=== PATIENT | female | born 1945 | race Caucasian/White ===

== ENCOUNTER 2024-12-02 08:54 | Outpatient (REF) | payer MEDICARE, SELFPAY ==
--- OUTSIDE RECORDS SUMMARY | 2024-08-18 10:00 | XMS_ITS ---
Author Organization Talita Mills MD Address [address] [place] [phone] Care Team Providers Care Health Education Aide Name Role Phone Allyson Fairchild Primary Care Provider REASON FOR VISIT Rehab f/u D/C 08/08/2024 Encounters Encounter Location Date Provider Diagnosis Talita Mills MD [address] [phone] 08/18/2024 Allyson Fairchild Plan Of Treatment Next Appt Details Provider Name:Allyson Fairchild , 01/19/2025 01:30:00 PM, [address] [place] [address], [phone], Provider Name:Allyson Fairchild , 10/19/2025 01:30:00 PM, [address] [place] [address], [phone], Progress Notes * Fatou BRUSHOB:1945 (79 yo F)Acc No.[id number]:08/18/2024 Progress Note Patient: Lorene BYRNE Appointment Provider: Janneth Fairchild DNP :1945 A ge:79 Y S ex:Female Date:08/18/2024 Address:[address] [place] [address] Subjective: * Chief Complaints: * 1 . Rehab f/u D/C 08/08/2024. * Medical History: Objective: * Vitals: Past Vitals:* 08/11/2024 Temp:97.7F, HR:91/min, BP:11 8/68mm Hg, Wt:164lbs, BMI:26.07Index, Ht:66.5in, Oxygen sat %:96% * 05/19/2024 Temp:96.5F, HR:65/min, BP:11 8/68mm Hg, Wt:160lbs, BMI:25.44Index, Ht:66.5in, Oxygen sat %:95% * 04/28/2024 Temp:967F, HR:117/min, BP:10 6/58mm Hg, Wt:156lbs, BMI:24.8Index, Ht:66.5in, Oxygen sat %:98% Assessment: Plan: * Treatment: * Images: Billing Information: * Visit Code: * Procedure Codes: * Electronic signature of Anibal Fairchild DNP on 12/03/2024 at 09:51 AM EDT Sign off status: Pending * Appointment Provider: Janneth Fairchild DNP Date: 0 08/18/2024 Generated for Dinora flores/Ian/Sena on: 09:51 AM EDT
--- NOTE | ~2024-12-02 | XR_ITS ---
Exam: X-ray, bilateral knees.XR KNEE 3 VIEWS BILATERAL TECHNIQUE: Three views lower extremity joint, bilateral knees INDICATION: Bilateral knee pain COMPARISON: None available. FINDINGS: RIGHT KNEE: There is severe narrowing of the medial compartment and mild narrowing of the lateral compartment. There are tricompartmental marginal osteophytes, largest along the medial joint line and medial trochlea. There is diffuse osteopenia. There is no joint effusion. LEFT KNEE: There is moderate narrowing of medial compartment and subchondral sclerosis. There are tricompartmental marginal osteophytes, largest along the medial joint line, trochlea, and medial patella. There is no joint effusion. There is diffuse osteopenia. XR/XR Knee Sudarshan 3V IMPRESSION: Osteopenia. Right knee: Severe osteoarthritis. Left knee: Moderate osteoarthritis. Electronically signed by: Ty Melgar MD 12/02/2024 01:18 PM EDT
--- OUTSIDE RECORDS SUMMARY | 2024-12-03 09:51 | XMS_ITS | Clinical Summary ---
Author Organization [facility] Address [address] [place] [address] Phone Care Team Providers Care Posting Clerk Name Role Phone Allyson Fairchild NP Primary Care Provider [phone] Allergies Active Allergy Reactions Criticality Noted Date Comments Ciprofloxacin Diarrhea 02/19/2024 Medications Vitamin D3 50 mcg (2,000 unit) tablet Take 1 tablet (2,000 Units total) by mouth 1 (one) time each day. for 90 days 05/16/2023 Active DULoxetine (CYMBALTA) [address] capsuleIndicati ons:anxiety with depression Take 1 capsule (30 mg total) by mouth at bedtime. Do not crush or chew. Active gabapentin (NEURONTIN) 300 mg capsule Take 1 capsule (300 mg total) by mouth at bedtime. 06/18/2024 Active metoprolol succinate (TOPROL-XL) 25 mg 24 hr tablet Take 1 tablet (25 mg total) by mouth 1 (one) time each day. Do not crush or chew. 0 06/19/2024 Active doxycycline hyclate (VIBRA-TABS) 100 mg tablet Take 1 tablet (100 mg total) by mouth 2 (two) times a day. Take with a full glass of water and do not lie down for at least 30 minutes after. 60 each 11 2024 Active methocarbamoL (ROBAXIN) 500 mg tablet Take 1 tablet (500 mg total) by mouth every 8 (eight) hours if needed for muscle spasms. 30 tablet 08/22/2024 Active LORazepam (ATIVAN) 0.5 mg tablet Take 1 tablet (0.5 mg total) by mouth every 6 (six) hours if needed for anxiety. Max Daily Amount: 2 mg Active acetaminophen (TYLENOL) 325 mg tablet Take by mouth every 6 (six) hours if needed for mild pain. Active ondansetron (ZOFRAN) 4 mg tablet Take 1 tablet (4 mg total) by mouth every 8 (eight) hours if needed for nausea or vomiting. 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, [facility] V28) Encounters Date Type Department Care Team Description 10/20/2024 Telephone Gastroenterology - [address] [facility] [address] [facility] [address] [place] [phone] Kathrine Cedeño MD 10/17/2024 Telephone Assistant Store Manager Operations - [place] [address] [place] [phone] Esthela Baum MA 09/15/2024 10:30 AM EDT Office Visit Neurosurgery - [place] [address] [place] [phone] Lonnie Freed MD History of thoracic surgery (Primary Dx) 09/12/2024 Telephone [facility] - [facility] [address] [facility] [address] [place] [phone] Allyson Fairchild NP 09/09/2024 12:44 PM EDT - 09/09/2024 11:59 PM EDT Hospital Encounter [facility] CT Scan [address] [place] [phone] Discitis thoracic region Discharge Disposition: Home or Self Care 09/09/2024 12:44 PM EDT - 09/09/2024 11:59 PM EDT Hospital Encounter [facility] CT Scan [address] [place] [phone] Other pulmonary embolism without acute cor pulmonale ([facility] V24, [facility] V28) Discharge Disposition: Home or Self Care from Last 3 Months Immunizations Immunization Administration Dates Next Due Influenza Quadravalent, 0.5ml (Fluad) 65yo and o lder 12/06/2021 Influenza Quadrivalent, with preservative (Fluzone; Afluria) 6mo and older 12/09/2020 Influenza trivalent, with pr eservative (Fluzone; Afluria) 6mo and older 11/20/2023 Pneumococcal conjugate 20 va lent (Prevnar 20, PCV 20) 2mo and older 06/18/2023 Tdap Tetanus diptheria acell ular pertussis (Boostrix; Adacel) 7yo and older 05/08/2016 Surgical History Surgery Date Site/Laterality Comments WRIST FRACTURE SURGERY 02/05/2019 - 02/05/2020 Right ORIF ANKLE FRACTURE 02/05/2014 - 02/04/2015 Right Medical History Medical History Date Comments Hypertension Anxiety Alcohol abuse Arthritis Family History Medical History Relation Name Comments Alcohol abuse Father Alcohol abuse Mother Relation Name Status Comments Father Mother Social History Tobacco Use Types Packs/Day Years Used Date Smoking Tobacco: Never Smokeless Tobacco: Never Tobacco Cessation:Counseling Given: Not Answered Alcohol Use Standard Drinks/Week Comments Not Currently 0 (1 standard drink = 0.6 oz pure alcohol) 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 relapsed quir 19 days ago Interpersonal Safety Answer Date Record ed Physical Abuse Unrecognized value 06/28/2024 Verbal Abuse Unrecognized value 06/28/2024 Comments Unknown Sex and Gender Information Value Date Recorded Sex Assigned at Female 02/18/2024 8:28 PM EST Legal Sex Female 1:55 PM EST Gender Identity Female 02/18/2024 8:28 PM EST Sexual Orientation Straight 02/18/2024 8: 28 PM EST Obstetrics History Last Filed Vital Signs Vital Sign Reading Time Taken Comments Blood Pressure 117/77 09/15/2024 10:06 AM EDT Pulse 92 09/15/2024 10:06 AM EDT Temperature 36.7 C (98 F) 09/15/2024 10:06 AM EDT Respiratory Rate 18 2024 10:13 AM EDT Oxygen Saturation 97% 2024 10:13 AM EDT Inhaled Oxygen Concentration - - Weight 66.2 kg (146 lb) 09/15/2024 10:06 AM EDT Height 170.2 cm (5' 7 ) 09/15/2024 10:06 AM EDT Body Mass Index 22.87 09/15/2024 10:06 AM EDT Plan of Treatment Upcoming Encounters Date Type Department Care Team (Late st Contact Info) Description 12/03/2024 12:[address] [facility] [address] [place] [phone] 12/12/2024 12:30 PM EST Office Visit [facility] Cardiology - [place] [address] [place] [phone] Rodríguez Meza MD [address] [place], [place] [phone] 02/18/2025 10:00 AM EST Office Visit Infectious Disease - [place] [address] [place] [phone] Daria Woodall MD [address] [place], [place] [id number] Health Maintenance Due Date Last Done Comments Hepatitis A Vaccines (1 of 2 - Risk 2-dose series) 08/11/1966 Zoster Vaccines (1 of 2) 08/11/1997 Hepatitis B Vaccines (1 of 3 - Risk 3-dose series) 2007 RSV Immunization Adult Patients (1 - 1-dose 75+ series) 08/11/2022 Depression Screening 02/06/2024 Cholesterol Screening (Lipid Panel) 02/19/2024 Medicare Annual Wellness Visit 02/19/2024 Osteoporosis Screening (Bone Density Screening) 02/19/2024 Social Influencers of Health Screening 02/19/2024 COVID-19 Vaccine (4 - 2024-2 6 season) 2024 05/03/2021, 09/24/2020, 08/27/2020 Influenza Vaccine (#1) 2024 , 12/06/2021, 12/09/2020 Falls Risk Assessment 07/02/2025 07/02/2024 DTaP,Tdap,and Td Vaccines (2 - Td or Tdap) 05/08/2026 05/08/2016 Pneumococcal Vaccine: 50+ Years Completed 06/18/2023 Hepatitis C Screening Completed 02/19/2024 HIB Vaccines Aged Out No longer eligi ble based on patient's age to complete this topic HPV Vaccines Aged Out No longer eligi ble based on patient's age to complete this topic IPV Vaccines Aged Out No longer eligi ble based on patient's age to complete this topic MMR Vaccines Aged Out No longer eligi ble based on patient's age to complete this topic Meningococcal ACWY Vaccine Aged Out N o longer eligible based on patient's age to complete this topic Meningococcal B Vaccine Aged Out No l onger eligible based on patient's age to complete this topic RSV Immunization Patients Under 20 months Aged Out No longer eligible b ased on patient's age to complete this topic Varicella Vaccines Aged Out No longer eligible based on patient's age to complete this topic Medical Devices Implanted Type Area Detailer Device Identifier Shelf Expiration Date Model / Serial / Lot Kit Surgiflo W 2000 Units Ster Lyo - S- - [id number] Implanted:Qty : 1 on 06/27/2024 by Lonnie Freed MD at [facility] Hemostasis N/A: Spine Thoracic [employer] 11/04/2025 [id number] / - / [id number] Procedures Procedure Name Priority Date/Time Associated Diagnosis Comments CT THORACIC SPINE WO CONTRAST Routine 09/09/2024 2:03 PM EDT Discitis thoracic region CT ANGIO CHEST WO AND/OR W CONTRAST Routine 09/09/2024 1:59 PM EDT Other pulmonary embolism without acute cor pulmonale (CMS/HCC V24, CMS/HCC V28) POCT CREATININE BLOOD Routine 09/09/2024 1:46 PM EDT HEPATITIS PANEL, ACUTE WITH REFLEX TO CONFIRMATION Routine 02/19/2024 7:33 PM EST from Last 3 Months or Most Recently Relevant to Health Maintenance Results * CT Thoracic Spine wo Contrast (09/09/2024 2:03 PM EDT) Anatomical Region Laterality Modality Spine, T-spine Computed Tomogra phy 09/09/2024 5:19 PM EDT Impressions 09/09/2024 5:29 PM EDT Endplate sclerosis and partial ankylosis across the disc spaces at T8-T9 and T11-T12 compatible with healing spondylitis/discitis. No signs of new spinal infection. Kyphosis scoliosis and chronic spondylosis. Report reviewed and signed by : Dr. Ranjan Mauro MD on 09/09/2024 5:29 PM. Workstation Name - [id number] -------- FINAL REPORT -------- Dictated By: Ranjan Mauro Dictated Date: 09/09/2024 17:19 ET Assigned Physician: Ranjan Mauro Reviewed and Electronically Signed By: Ranjan Mauro Signed Date: 09/09/2024 17:29 ET Workstation ID: [id number] Transcribed By: Self Edit Transcribed Date: 09/09/2024 17:19 ET Narrative 09/09/2024 5:29 PM EDT EXAM: CT THORACIC SPINE WO CONTRAST CLINICAL INDICATION: s/p T11-T12 discectomy with left retropleural approach COMPARISON: CT 06/25/2024 TECHNIQUE: Helical multichannel CT imaging of the thoracic spine was performed without contrast. Sagittal and coronal plane reconstructions were obtained.. All CT scans are performed using dose optimization technique as appropriate to a performed exam including the following: Automated Exposure control and adjustment of the mA and/or kV according to patient size. FINDINGS: GENERAL OBSERVATIONS: LORDOSIS/KYPHOSIS: Kyphoscoliosis is unchanged. ALIGNMENT: Normal. No evidence of spondylolisthesis. SPINAL CANAL: Normal ANATOMY: Normal VERTEBRAL OBSERVATIONS: POSTERIOR NEURAL ARCH INTEGRITY: Intact VERTEBRAL HEIGHT: Unchanged chronic appearing mild compression deformities at T8, T9, T11, and T12. ENDPLATE DEFINITION: There is sclerosis and partial ankylosis across the disc space at T8-T9 compatible with old healed spondylitis/discitis. At T11-T12 there is less lucency of the endplates with areas of sclerosis and now partial ankylosis across the disc space compatible with healing spondylitis/discitis. No new areas of endplate irregularity to suggest spondylitis/discitis elsewhere in the thoracic spine. Chronic appearing remodeling of the endplates at L1-L2 is felt to be degenerative. INTERSPACE OBSERVATIONS: Redemonstration of degenerative changes with loss of disc space height and endplate osteophyte formation accompanied by mild facet arthrosis. The facet arthrosis and hypertrophic changes with loss of disc space height results in [id number] foraminal narrowing at T8-T9, worse on the right that is unchanged. Small chronic peripherally calcified disc protrusion at T5-T6 is unchanged. No significant central stenosis. No evidence of epidural disease with within the limitations of this study. Procedure Note Ranjan Mauro MD - 09/09/2024 EXAM: CT THORACIC SPINE WO CONTRAST CLINICAL INDICATION: s/p T11-T12 discectomy with left retropleuralapproach COMPARISON: CT 06/25/2024 TECHNIQUE: Helical multichannel CT imaging of the thoracic spine wasperformed without contrast. Sagittal and coronal plane reconstructionswere obtained.. All CT scans are performed using dose optimizationtechnique as appropriate to a performed exam including the following:Automated Exposure control and adjustment of the mA and/or kV according topatient size. FINDINGS: GENERAL OBSERVATIONS: LORDOSIS/KYPHOSIS: Kyphoscoliosis is unchanged. ALIGNMENT: Normal. No evidence of spondylolisthesis. SPINAL CANAL: Normal ANATOMY: Normal VERTEBRAL OBSERVATIONS: POSTERIOR NEURAL ARCH INTEGRITY: Intact VERTEBRAL HEIGHT: Unchanged chronic appearing mild compression deformitiesat T8, T9, T11, and T12. ENDPLATE DEFINITION: There is sclerosis and partial ankylosis across thedisc space at T8-T9 compatible with old healed spondylitis/discitis. [id number] there is less lucency of the endplates with areas of sclerosis andnow partial ankylosis across the disc space compatible with healingspondylitis/discitis. No new areas of endplate irregularity to suggestspondylitis/discitis elsewhere in the thoracic spine. Chronic appearingremodeling of the endplates at L1-L2 is felt to be degenerative. INTERSPACE OBSERVATIONS: Redemonstration of degenerative changes with lossof disc space height and endplate osteophyte formation accompanied by mildfacet arthrosis. The facet arthrosis and hypertrophic changes with lossof disc space height results in [id number]-afswnxbq foraminal narrowing atT8-T9, worse on the right that is unchanged. Small chronic peripherallycalcified disc protrusion at T5-T6 is unchanged. No significant centralstenosis. No evidence of epidural disease with within the limitations ofthis study. IMPRESSION: Endplate sclerosis and partial ankylosis across the disc spaces at T8-T9and T11- T12 compatible with healing spondylitis/discitis. No signs of new spinal infection. Kyphosis scoliosis and chronic spondylosis. Report reviewed and signed by : Dr. Ranjan Mauro MD on 09/09/2024 5:29 PM.Workstation Name - [id number] -------- FINAL REPORT -------- Dictated By: Ranjan Mauro Dictated Date: 09/09/2024 17:19 ET Assigned Physician: Ranjan Mauro Reviewed and Electronically Signed By: Ranjan Mauro Signed Date: 09/09/2024 17:29 ET Workstation ID: [id number] Transcribed By: Self Edit Transcribed Date: 09/09/2024 17:19 ET us Teagan Howe NP IMG CT PROCEDURES Final Resu lt * CT Angio Chest wo and/or w Contrast (09/09/2024 1:59 PM EDT) Anatomical Region Laterality Modality Body Computed Tomogra phy 09/09/2024 2:12 PM EDT Impressions 09/09/2024 2:28 PM EDT * No evidence of pulmonary embolism. * Bronchial marin are thickened, particularly in the lower lobes, and this could be a manifestation of reactive airway disease, asthma or bronchitis. No pneumonia. * Incidentally noted is a hyperdense proteinaceous cyst of the left kidney. * The findings suggest that there has been successful treatment of spinal infection. No new spinal abnormalities. Report reviewed and signed by : Dr. Rakesh Ruiz on 09/09/2024 2:28 PM. Workstation Name - [id number] -------- FINAL REPORT -------- Dictated By: Rakesh Ruiz Dictated Date: 09/09/2024 14:12 ET Assigned Physician: Rakesh Ruiz Reviewed and Electronically Signed By: Rakesh Ruiz Signed Date: 09/09/2024 14:28 ET Workstation ID: [id number] Transcribed By: Self Edit Transcribed Date: 09/09/2024 14:12 ET Narrative 09/09/2024 2:28 PM EDT EXAM: CT ANGIO CHEST WO AND/OR W CONTRAST CLINICAL INFORMATION: other pulmonary embolism without acute pulmonale COMPARISON: CXR from 06/29/2024. CT images of the thoracic spine from 06/25/2024. TECHNIQUE: Multidetector volumetric imaging was performed from the thoracic inlet to below the diaphragms following the administration of 65 mL Isovue-370 intravenous contrast. No contrast reaction reported. Sagittal and coronal reformatted and MIP images were obtained on the CT workstation, uploaded to PACS, and reviewed. CT examination is performed using dose optimization techniques as appropriate, variously including the following: *Automated exposure control *Adjustment of mA and/or kV according to patient size (this includes techniques or standardized protocols for targeted exams where dose is matched to indication/reason for exam; i.e. extremities or head) *Use of iterative reconstruction technique FINDINGS: LUNGS AND PLEURA: Bronchial marin are thickened, particularly in lower lobes. No pulmonary consolidation, pleural effusion or pneumothorax. Mild atelectasis of lower lobes. QUALITY OF STUDY/CONTRAST BOLUS: Satisfactory. PULMONARY ARTERIES: Pulmonary arteries are normal in size. No evidence of embolic filling defects in the main, lobar or segmental vessels. CARDIOVASCULAR/AORTA: The heart size is normal. No pericardial effusion. Mild coronary artery atherosclerotic calcification. There is scattered calcific atherosclerosis of the thoracic aorta without aneurysm or dissection. MEDIASTINUM/LOWER NECK: No mass in the visualized lower neck or mediastinum. The esophagus has normal wall thickness. LYMPHATICS: No pathologic-sized mediastinal, hilar or axillary lymph nodes. UPPER ABDOMEN: No acute findings. There are diverticula of the partially visualized colon. 1.5 cm cortical lesion of the anterior left kidney has density of 75 Hounsfield units. It was partially included in [id number] and had similar density on noncontrast images from 06/25/2024 consistent with a proteinaceous cyst. OSSEOUS STRUCTURES: Bones are diffusely osteopenic. Multilevel degenerative arthropathy of the spine. Chronic collapse of vertebral endplates and partial interbody fusion at T8-T9. This has the appearance of old treated discitis-osteomyelitis. Also, there is an old erosive changes with reactive sclerosis at endplates of T11-T12. There are no rim-enhancing paraspinal fluid collections. Procedure Note Rakesh Ruiz MD - 09/09/2024 EXAM: CT ANGIO CHEST WO AND/OR W CONTRAST CLINICAL INFORMATION: other pulmonary embolism without acute pulmonale COMPARISON: CXR from 06/29/2024. CT images of the thoracic spine from 06/25/2024. TECHNIQUE: Multidetector volumetric imaging was performed from the thoracic inlet tobelow the diaphragms following the administration of 65 mL Isovue-370intravenous contrast. No contrast reaction reported. Sagittal and coronalreformatted and MIP images were obtained on the CT workstation, uploadedto PACS, and reviewed. CT examination is performed using doseoptimization techniques as appropriate, variously including thefollowing: *Automated exposure control *Adjustment of mA and/or kV according to patient size (this includestechniques or standardized protocols for targeted exams where dose ismatched to indication/reason for exam; i.e. extremities or head) *Use of iterative reconstruction technique FINDINGS: LUNGS AND PLEURA: Bronchial marin are thickened, particularly in lowerlobes. No pulmonary consolidation, pleural effusion or pneumothorax.Mild atelectasis of lower lobes. QUALITY OF STUDY/CONTRAST BOLUS: Satisfactory. PULMONARY ARTERIES: Pulmonary arteries are normal in size. No evidence ofembolic filling defects in the main, lobar or segmental vessels. CARDIOVASCULAR/AORTA: The heart size is normal. No pericardial effusion.Mild coronary artery atherosclerotic calcification. There is scatteredcalcific atherosclerosis of the thoracic aorta without aneurysm ordissection. MEDIASTINUM/LOWER NECK: No mass in the visualized lower neck ormediastinum. The esophagus has normal wall thickness. LYMPHATICS: No pathologic-sized mediastinal, hilar or axillary lymphnodes. UPPER ABDOMEN: No acute findings. There are diverticula of the partiallyvisualized colon. 1.5 cm cortical lesion of the anterior left kidney hasdensity of 75 Hounsfield units. It was partially included [id number] and had similar density on noncontrast images from06/25/2024 consistent with a proteinaceous cyst. OSSEOUS STRUCTURES: Bones are diffusely osteopenic. Multileveldegenerative arthropathy of the spine. Chronic collapse of vertebralendplates and partial interbody fusion at T8-T9. This has the appearanceof old treated discitis-osteomyelitis. Also, there is an old erosivechanges with reactive sclerosis at endplates of T11-T12. There are norim-enhancing paraspinal fluid collections. IMPRESSION: * No evidence of pulmonary embolism. * Bronchial marin are thickened, particularly in the lower lobes, andthis could be a manifestation of reactive airway disease, asthma orbronchitis. No pneumonia. * Incidentally noted is a hyperdense proteinaceous cyst of the leftkidney. * The findings suggest that there has been successful treatment of spinalinfection. No new spinal abnormalities. Report reviewed and signed by : Dr. Rakesh Ruiz on 09/09/2024 2:28 PM.Workstation Name - [id number] -------- FINAL REPORT -------- Dictated By: Rakesh Ruiz Dictated Date: 09/09/2024 14:12 ET Assigned Physician: Rakesh Ruiz Reviewed and Electronically Signed By: Rakesh Ruiz Signed Date: 09/09/2024 14:28 ET Workstation ID: [id number] Transcribed By: Self Edit Transcribed Date: 09/09/2024 14:12 ET Allyson Fairchild NP IMG CT PROCEDURES Final Result * POCT Creatinine, blood (09/09/2024 1:46 PM EDT) Creatinine POCT 1.0 0.5 - 1.0 mg/dL 09/09/2024 1:54 PM EDT [facility] eGFR 54 mL/min/1.7 3m2 09/09/2024 1:54 PM EDT [facility] Blood Venous blood specimen / Unknown 09/09/2024 1:46 PM EDT 09/09/2024 1:55 PM EDT us Generic Provider Poct LAB POINT OF CARE TEST DOCKED DEVICE UNSOLICITED RESULTS Final Result [facility] [address] [place] [address], [place] [phone] * Hepatitis panel, acute with reflex to confirmation (02/19/2024 7:33 PM EST) Hepatitis B Surface Ag Negative Negative LAB CHEMISTRY METHOD 02/19/2024 9:04 PM EST [facility] Hepatitis A Antibody IgM Negative Negative LAB CHEMISTRY METHOD 02/19/2024 9:04 PM EST [facility] Hep B Core IgM Negative Negative LAB CHEMISTRY METHOD 02/19/2024 9:04 PM EST [facility] Hepatitis C Antibody Negative Negative LAB CHEMISTRY METHOD 02/19/2024 9:04 PM EST [facility] Blood Venous blood specimen / Unknown Venipuncture / Unknown 02/19/2024 7:33 PM EST 02/19/2024 7:46 PM EST Denise SMITH LAB BLOOD ORDERABLES Final Re sult [facility] [address] [place] [address], [place] [phone] from Last 3 Months or Most Recently Relevant to Health Maintenance Insurance MEDICARE [facility] MEDICARE Advance Directives Documents on File Type Date Recorded Patient Utility Agent Expl anation Power of Forensic Nurse 02/26/2024 7:59 AM Power of Forensic Nurse 02/25/2024 2:54 PM Power of Forensic Nurse * Full Code - Default (Latest Code Status on File) Date Activated Date Inactivated Comments 06/18/2024 9:12 PM 07/02/2024 3:42 PM This is orde r is used when code status has not been discussed with the patient, or code status is otherwise unknown/unconfirmed To update the patient's code status, place a code status order. Do not modify or discontinue any currently active code status orders. * Full Code - Default Date Activated Date Inactivated Comments 06/13/2024 3:19 PM 06/18/2024 5:58 PM This is order is used when code status has not been discussed with the patient, or code status is otherwise unknown/unconfirmed To update the patient's code status, place a code status order. Do not modify or discontinue any currently active code status orders. * Full Code - Default Date Activated Date Inactivated Comments 02/19/2024 4:32 PM 02/25/2024 8:01 PM This is orde r is used when code status has not been discussed with the patient, or code status is otherwise unknown/unconfirmed To update the patient's code status, place a code status order. Do not modify or discontinue any currently active code status orders. * Full Code - Confirmed Date Activated Date Inactivated Comments 02/18/2024 10:04 PM 02/19/2024 4:32 PM This code s tatus was ascertained in the following way: Code status discussion: discussion with healthcare sales utility representative (patient's daughter, healthcare proxy, who has confirmed through discussion with patient. To update the patient's code status, place a code status order. Do not modify or discontinue any currently active code status orders. Healthcare Agents on File Name Relationship Healthcare Agent [facility] Communication Susan Lugo Daughter Health Care Agent Laura Barajas Daughter First Alternat e Health Care Agent Care Teams Posting Clerk Relationship Specialty Start Date End Date Allyson Fairchild NP [address] [place] [address] PCP - General Family Medicine 02/18/24
--- OUTSIDE RECORDS SUMMARY | 2024-12-03 09:52 | XMS_ITS | Encounter Summary ---
Author Organization [facility] Address [address] [place] [address] Care Team Providers Care [employer] Name Role Phone Allyson Fairchild NP Primary Care Provider [phone] Encounter Details Date Type Department Care Team (Latest Contact Info) Description 03/27/2024 Lab Requisition [facility] - Main Lab 299 [facility] [place] [address] Rakesh Bullock MD [address] [place] [address] Sepsis due to methicillin resistant Staphylococcus aureus ([facility] V24, [facility] V28) Social History Tobacco Use Types Packs/Day Years Used Date Smoking Tobacco: Never Smokeless Tobacco: Never Alcohol Use Standard Drinks/Week Comments Not Currently 0 (1 standard drink = 0.6 oz pure alcohol) 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 relapsed quir 19 days ago Interpersonal Safety Answer Date Record ed Physical Abuse Unrecognized value 02/20/2024 Verbal Abuse Unrecognized value 02/20/2024 Comments Unknown Sex and Gender Information Value Date Recorded Sex Assigned at Female 02/18/2024 8:28 PM EST Legal Sex Female 1:55 PM EST Gender Identity Female 02/18/2024 8:28 PM EST Sexual Orientation Straight 02/18/2024 8: 28 PM EST documented as of this encounter Plan of Treatment Upcoming Encounters Date Type Department Care Team (Late st Contact Info) Description 12/03/2024 12:45 PM EDT Appointment [facility] Pulmonary [address] [place] [phone] 12/12/2024 12:30 PM EST Office Visit [facility] Cardiology - [place] [address] [place] [address] Rodríguez Meza MD [address] [place] [address] 02/18/2025 10:00 AM EST Office Visit Infectious Disease - [place] [address] [place] [phone] Daria Woodall MD [address] [place], [place] [phone] documented as of this encounter Procedures Procedure Name Priority Date/Time Associated Diagnosis Comments VANCOMYCIN, TROUGH STAT 03/27/2024 4: 52 AM EST Sepsis due to methicillin resistant Staphylococcus aureus ([facility]) documented in this encounter Results * (ABNORMAL) Vancomycin, trough (03/27/2024 4:52 AM EST) Vancomycin Trough 9.3(L) 10.0 - 20.0 mcg/mL LAB CHEMISTRY METHOD 03/27/2024 7:15 AM EST [facility] Blood Venous blood specimen / Unknown Venipuncture / Unknown 03/27/2024 4:52 AM EST 03/27/2024 7:15 AM EST us Rakesh Bullock MD LAB BLOOD ORDERABLES Final Resu lt [facility] [address] [place] [address], [place] [phone] documented in this encounter Visit Diagnoses Diagnosis Sepsis due to methicillin resistant Staphylococcus aureus (CMS/HCC V24, [facility] V28) documented in this encounter Additional Health Concerns Infection Onset Date Last Indicated Resolved Time MRSA 02/19/2024 06/13/2024 06/19/2024 12:0 3 PM EDT MRSA 06/27/2024 06/27/2024 07/01/2024 7:30 AM EDT MRSA 06/27/2024 06/27/2024 07/02/2024 1:23 PM EDT documented as of this encounter Care Teams [employer] Relationship Specialty Start Date End Date Allyson Fairchild NP [address] [place] [address] PCP - General Family Medicine 02/18/24 documented as of this encounter
--- OUTSIDE RECORDS SUMMARY | 2024-12-03 09:52 | XMS_ITS | Encounter Summary ---
Author Organization [facility] Address [address] [place] [address] Care Team Providers Care Computational Linguist Name Role Phone Allyson Fairchild NP Primary Care Provider Encounter Details Date Type Department Care Team (Latest Contact Info) Description 07/25/2024 Lab Requisition [facility] - Main Lab 299 [facility] [place] [address] Rakesh Bullock MD [address] [place] [address] 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; Fusion of spine, thoracic region; Essential (primary) hypertension; Osteomyelitis of vertebra, thoracic region (CMS/HCC V24, CMS/HCC V28) Social History Tobacco Use Types Packs/Day [...] PM EST documented as of this encounter Functional Status * Are you deaf or do you have serious difficulty hearing? Answer Date of Assessment Author No 06/13/2024 10:38 AM Edi Pulido RN * Are you blind or do you have serious difficulty seeing, even when wearing glasses? Answer Date of Assessment Author No 06/13/2024 10:38 AM Edi Pulido RN * Do you have serious difficulty walking or climbing stairs? Answer Date of Assessment Author Yes 06/13/2024 10:38 AM Edi Pulido RN * Do you have serious difficulty dressing or bathing? Answer Date of Assessment Author No 06/13/2024 10:38 AM Edi Pulido RN * Because of a physical, mental, or emotional condition, do you have serious difficulty doing errandsalone such as visiting the doctor? Answer Date of Assessment Author No 06/13/2024 10:38 AM Edi Pulido RN documented as of this encounter Mental Status * Because of a physical, mental, or emotional condition, do you have serious difficulty concentrating, remembering, or making decisions? (5 years old or older) Answer Entry Date Author No 06/13/2024 10:38 AM Edi Pulido RN documented in this encounter Plan of Treatment Upcoming Encounters Date Type Department Care Team (Late st Contact Info) Description 12/03/2024 12:45 PM EDT Appointment [facility] Pulmonary [address] [place] [address] 12/12/2024 12:30 PM EST Office Visit [facility] Cardiology - [place] [address] [place] [phone] Rodríguez Meza MD [address] [place], [place] [phone] 02/18/2025 10:00 AM EST Office Visit Infectious Disease [facility] [address] [place] [phone] Daria Woodall MD [address] [facility] [address] [place] [address] documented as of this encounter Procedures Procedure Name Priority Date/Time Associated Diagnosis Comments CBC WITH AUTO DIFFERENTIAL Routine 07/28/2024 5:41 AM EDT 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, thoracic region Essential (primary) hypertension Osteomyelitis of vertebra, thoracic region (CMS/HCC V24, CMS/HCC V28) SEDIMENTATION RATE Routine 07/28/2024 5: 41 AM EDT 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, thoracic region Essential (primary) hypertension Osteomyelitis of vertebra, thoracic region (CMS/HCC V24, CMS/HCC V28) CBC AND DIFFERENTIAL Routine 07/28/2024 5:41 AM EDT 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, thoracic region Essential (primary) hypertension Osteomyelitis of vertebra, thoracic region (CMS/HCC V24, CMS/HCC V28) C-REACTIVE PROTEIN Routine 07/28/2024 5: 41 AM EDT 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, thoracic region Essential (primary) hypertension Osteomyelitis of vertebra, thoracic region (CMS/HCC V24, CMS/HCC V28) COMPREHENSIVE METABOLIC PANEL Routine 07/28/2024 5:41 AM EDT 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, thoracic region Essential (primary) hypertension Osteomyelitis of vertebra, thoracic region (CMS/HCC V24, CMS/HCC V28) documented in this encounter Results * (ABNORMAL) CBC auto differential (07/28/2024 5:41 AM EDT) [facility] WBC 5.6 4.8 - 10.8 K/mcL LAB HEMETOLOGY METHOD 07/28/2024 1:04 PM EDT [facility] RBC 3.80 3.80 - 4.80 M/mcL LAB HEMETOLOGY METHOD 07/28/2024 1:04 PM [facility] Hemoglobin 9.9(L) 11.5 - 16.0 g/dL LAB HEMETOLOGY METHOD 07/28/2024 1:04 PM [facility] Hematocrit 32.7(L) 35.0 - 47.0 % LAB HEMETOLOGY METHOD 07/28/2024 1:04 PM [facility] MCV 87.2 79.0 - 98.0 FL LAB HEMETOLOGY METHOD 07/28/2024 1:04 PM [facility] MCH 26.4(L) 27.0 - 32.0 pcg LAB HEMETOLOGY METHOD 07/28/2024 1:04 PM [facility] MCHC 30.3(L) 32.0 - 37.0 g/dL LAB HEMETOLOGY METHOD 07/28/2024 1:04 PM [facility] RDW 14.7 11.0 - 15.0 % LAB HEMETOLOGY METHOD 07/28/2024 1:04 [facility] LAB Platelets 224 130 - 400 K/mcL LAB HEMETOLOGY METHOD 07/28/2024 1:04 PM [facility] MPV 10.1 7.0 - 11.0 FL LAB HEMETOLOGY METHOD 07/28/2024 1:04 PM [facility] NRBC 0.0 <1.0 % LAB HEMETOLOGY METHOD 07/28/2024 1:04 PM [facility] NRBC Absolute 0.00 <0.10 K/mcL LAB HEMETOLOGY METHOD 07/28/2024 1:04 PM [facility] Neutrophils Relative 56.0 % LAB HEMETOLOGY METHOD 07/28/2024 1:04 PM [facility] Lymphocytes Relative 23.4 % LAB HEMETOLOGY METHOD 07/28/2024 1:04 PM EDT [facility] Monocytes Relative 10.8 % LAB HEMETOLOGY METHOD 07/28/2024 1:04 PM [facility] Eosinophils Relative 8.7 % LAB HEMETOLOGY METHOD 07/28/2024 1:04 PM [facility] Basophils Relative 0.7 % LAB HEMETOLOGY METHOD 07/28/2024 1:04 PM [facility] Immature Granulocytes Relative 0.4 % LAB HEMETOLOGY METHOD 07/28/2024 1:04 PM [facility] Neutrophils Absolute 3.16 1.50 - 7.00 K/mcL LAB HEMETOLOGY METHOD 07/28/2024 1:04 PM [facility] Lymphocytes Absolute 1.32 1.00 - 5.00 K/mcL LAB HEMETOLOGY METHOD 07/28/2024 1:04 PM [facility] Monocytes Absolute 0.61 0.20 - 1.00 K/mcL LAB HEMETOLOGY METHOD 07/28/2024 1:04 PM [facility] Eosinophils Absolute 0.49 0.00 - 0.50 K/mcL LAB HEMETOLOGY METHOD 07/28/2024 1:04 PM [facility] Basophils Absolute 0.04 0.00 - 0.20 K/mcL LAB HEMETOLOGY METHOD 07/28/2024 1:04 PM [facility] Immature Granulocytes Absolute 0.02 0.00 - 0.03 K/mcL LAB HEMETOLOGY METHOD 07/28/2024 1:04 PM [facility] Blood Venous blood specimen / Unknown Venipuncture / Unknown 07/28/2024 5:41 AM EDT 07/28/2024 12:07 PM EDT us Rakesh Bullock MD LAB BLOOD ORDERABLES Final Resu lt Performing Organization Address [facility] [address] [facility]/ZIP Co de Phone Number [facility] [address] [place] [address], [place] [phone] * (ABNORMAL) Sedimentation rate (07/28/2024 5:41 AM EDT) Sed Rate 46(H) 0 - 30 mm/hr LAB HEMETOLOGY METHOD 07/28/2024 1:16 PM EDT [facility] Blood Venous blood specimen / Unknown Venipuncture / Unknown 07/28/2024 5:41 AM EDT 07/28/2024 12:07 PM EDT us Rakesh Bullock MD LAB BLOOD ORDERABLES Final Resu lt Performing Organization Address [facility] [address]/[facility] Co de Phone Number [facility] [address] [place] [address], [place] [phone] * C-reactive protein (07/28/2024 5:41 AM EDT) C-Reactive Protein <0.29 <=0.50 mg/dL LAB CHEMISTRY METHOD 07/28/2024 3:44 PM EDT [facility] Blood Venous blood specimen / Unknown Venipuncture / Unknown 07/28/2024 5:41 AM EDT 07/28/2024 12:13 PM EDT us Rakesh Bullock MD LAB BLOOD ORDERABLES Final Resu lt Performing Organization Address [facility] [address]/ZIP Co de Phone Number [facility] [address] [place] [address], [place] [phone] * (ABNORMAL) Comprehensive metabolic panel (07/28/2024 5:41 AM EDT) Sodium 139 133 - 145 mmol/L LAB CHEMISTRY [facility] Potassium 4.3 3.5 - 5.5 mmol/L LAB CHEMISTRY METHOD 07/28/2024 3:44 PM [facility] Comment:Hemolysis present Chloride 106 96 - 110 mmol/L LAB CHEMISTRY METHOD 07/28/2024 3:44 PM [facility] CO2 23 21 - 32 mmol/L LAB CHEMISTRY METHOD 07/28/2024 3:44 PM [facility] Anion Gap 10 3 - 11 LAB CHEMISTRY METHOD 07/28/2024 3:44 PM [facility] Glucose 57(L) 70 - 100 mg/dL LAB CHEMISTRY METHOD 07/28/2024 3:44 PM [facility] BUN 13 5 - 25 mg/dL LAB CHEMISTRY METHOD 07/28/2024 3:44 PM [facility] Creatinine 0.85 0.50 - 1.10 mg/dL LAB CHEMISTRY METHOD 07/28/2024 3:44 PM [facility] eGFR 71 >=60 mL/min/1. 73m2 LAB CHEMISTRY METHOD 07/28/2024 3:44 PM [facility] Comment:Calculation based on the Chronic Kidney Disease Epidemiology Collaboration (CKD-EPI) equation refit without adjustment for race. BUN/Creatinine Ratio 15.3 LAB CHEMISTRY METHOD 07/28/2024 3:44 PM [facility] Calcium 9.3 8.5 - 10.5 mg/dL LAB CHEMISTRY METHOD 07/28/2024 3:44 PM [facility] AST (SGOT) 26 10 - 42 unit/L LAB CHEMISTRY METHOD 07/28/2024 3:44 PM [facility] Comment:Hemolysis present ALT (SGPT) 21 10 - 60 unit/L LAB CHEMISTRY METHOD 07/28/2024 3:44 PM [facility] Alkaline Phosphatase 100 42 - 121 unit/L LAB CHEMISTRY METHOD 07/28/2024 3:44 PM EDT [facility] Total Protein 6.3 6.0 - 8.0 g/dL LAB CHEMISTRY METHOD 07/28/2024 3:44 PM EDT [facility] Albumin 3.1(L) 3.2 - 5.0 g/dL LAB CHEMISTRY METHOD 07/28/2024 3:44 PM EDT [facility] Total Bilirubin 0.2 0.0 - 1.4 mg/dL LAB CHEMISTRY METHOD 07/28/2024 3:44 PM EDT [facility] Blood Venous blood specimen / Unknown Venipuncture / Unknown 07/28/2024 5:41 AM EDT 07/28/2024 12:13 PM EDT us Rakesh Bullock MD LAB BLOOD ORDERABLES Final Resu lt [facility] [address] [place] [address], documented in this encounter Visit Diagnoses Diagnosis 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, thoracic region Essential (primary) hypertension Unspecified essential hypertension Osteomyelitis of vertebra, thoracic region (CMS/HCC V24, CMS/HCC V28) documented in this encounter Care Teams Computational Linguist Relationship Specialty Start Date End Date Allyson Fairchild NP [address] [address] PCP - General Family Medicine 02/18/24 documented as of this encounter
--- OUTSIDE RECORDS SUMMARY | 2024-12-03 09:52 | XMS_ITS | Encounter Summary ---
Author Organization [facility] Address [address] [place] [address] Care Team Providers Care [employer] Name Role Phone Allyson Fairchild NP Primary Care Provider [phone] Encounter Details Date Type Department Care Team (Latest Contact Info) Description 07/29/2024 Lab Requisition [facility] - Main Lab [address] [facility] [place] [address] Rakesh Bullock MD [address] [place] [address] Osteomyelitis of vertebra, thoracic region (CMS/HCC V24, [...] Info) Description 12/03/2024 12:45 PM EDT Appointment [facility] Pulmonary [address] [place] [address] 12/12/2024 12:30 PM EST Office Visit [facility] Cardiology - [place] [address] [place] [phone] Rodríguez Meza MD [address] [place], [place] [phone] 02/18/2025 10:00 AM EST Office Visit Infectious Disease [facility] [address] [place] [address] Daria Woodall MD [address] [place] [address] documented as of this encounter Procedures Procedure Name Priority Date/Time Associated Diagnosis Comments VANCOMYCIN, TROUGH Routine 07/29/2024 8: 27 AM EDT Osteomyelitis of vertebra, thoracic region ([facility] V24, [facility] V28) documented in this encounter Results * Vancomycin, trough (07/29/2024 8:27 AM EDT) Vancomycin Trough 16.4 10.0 - 20.0 mcg/mL LAB CHEMISTRY METHOD 07/29/2024 11:27 AM EDT [facility] Blood Venous blood specimen / Unknown Venipuncture / Unknown 07/29/2024 8:27 AM EDT 07/29/2024 9:14 AM EDT us Rakesh Bullock MD LAB BLOOD ORDERABLES Final Resu lt [facility] [address] [place] [address], [place] [phone] documented in this encounter Visit Diagnoses Diagnosis Osteomyelitis of vertebra, thoracic region ([facility] V24, [facility] V28) documented in this encounter Care Teams Phd Internship Relationship Specialty Start Date End Date Allyson Fairchild NP [address] [address] PCP - General Family Medicine 02/18/24 documented as of this encounter
--- OUTSIDE RECORDS SUMMARY | 2024-12-03 09:52 | XMS_ITS | Encounter Summary ---
Author Organization [facility] Address [address] [place] [address] Care Team Providers Care Director Of Plant [employer] Name Role Phone Allyson Fairchild NP Primary Care Provider Encounter Details Date Type Department Care Team (Latest Contact Info) Description 03/12/2024 Lab Requisition [facility] - Main Lab 299 [facility] [place] [address] Rakesh Bullock MD [address] [place] [address] Methicillin resistant Staphylococcus aureus infection, unspecified site; Essential (primary) hypertension Social History Tobacco Use Types Packs/Day Years [...] Info) Description 12/03/2024 12:45 PM EDT Appointment [facility] Pulmonary [address] [place] [phone] 12/12/2024 12:30 PM EST Office Visit [facility] Cardiology - [place] [address] [place] [phone] Rodríguez Meza MD [address] [place] [address] 02/18/2025 10:00 AM EST Office Visit Infectious Disease - [place] [address] [place] [phone] Daria Woodall MD [address] [place], [place] [phone] documented as of this encounter Procedures Procedure Name Priority Date/Time Associated Diagnosis Comments COMPLETE BLOOD COUNT Routine 03/13/2024 6:02 AM EST Methicillin resistant Staphylococcus aureus infection, unspecified site Essential (primary) hypertension BASIC METABOLIC PANEL Routine 03/13/2024 6:02 AM EST Methicillin resistant Staphylococcus aureus infection, unspecified site Essential (primary) hypertension documented in this encounter Results * (ABNORMAL) Basic metabolic panel (03/13/2024 6:02 AM EST) Sodium 135 133 - 145 mmol/L LAB CHEMISTRY METHOD 03/13/2024 11:44 AM EST [facility] Potassium 4.7 3.5 - 5.5 mmol/L LAB CHEMISTRY METHOD 03/13/2024 11:44 AM EST [facility] Chloride 103 96 - 110 mmol/L LAB CHEMISTRY METHOD 03/13/2024 11:44 AM EST [facility] CO2 23 21 - 32 mmol/L LAB CHEMISTRY METHOD 03/13/2024 11:44 AM EST [facility] Anion Gap 9 3 - 11 LAB CHEMISTRY METHOD 03/13/2024 11:44 AM [facility] Glucose 86 70 - 100 mg/dL LAB CHEMISTRY METHOD 03/13/2024 11:44 AM [facility] BUN 11 5 - 25 mg/dL LAB CHEMISTRY METHOD 03/13/2024 11:44 AM [facility] Creatinine 0.46(L) 0.50 - 1.10 mg/dL LAB CHEMISTRY METHOD 03/13/2024 11:44 AM [facility] eGFR 99 >=60 mL/min/1. 73m2 LAB CHEMISTRY METHOD 03/13/2024 11:44 AM [facility] Comment:Calculation based on the Chronic Kidney Disease Epidemiology Collaboration (CKD-EPI) equation refit without adjustment for race. BUN/Creatinine Ratio 23.9 LAB CHEMISTRY METHOD 03/13/2024 11:44 AM [facility] Calcium 8.9 8.5 - 10.5 mg/dL LAB CHEMISTRY METHOD 03/13/2024 11:44 AM [facility] Blood Venous blood specimen / Unknown Venipuncture / Unknown 03/13/2024 6:02 AM EST 03/13/2024 11:06 AM EST us Rakesh Bullock MD LAB BLOOD ORDERABLES Final Resu lt [facility] [address] [place] [address], * (ABNORMAL) Complete blood count (03/13/2024 6:02 AM EST) WBC 6.3 4.8 - 10.8 K/mcL LAB HEMETOLOGY METHOD 03/13/2024 11:26 AM [facility] RBC 3.20(L) 3.80 - 4.80 M/mcL LAB HEMETOLOGY METHOD 03/13/2024 11:26 AM [facility] Hemoglobin 8.8(L) 11.5 - 16.0 g/dL LAB HEMETOLOGY METHOD 03/13/2024 11:26 AM [facility] Hematocrit 28.5(L) 35.0 - 47.0 % LAB HEMETOLOGY METHOD 03/13/2024 11:26 AM [facility] MCV 89.9 79.0 - 98.0 FL LAB HEMETOLOGY METHOD 03/13/2024 11:26 AM [facility] MCH 27.8 27.0 - 32.0 pcg LAB HEMETOLOGY METHOD 03/13/2024 11:26 AM [facility] MCHC 30.9(L) 32.0 - 37.0 g/dL LAB HEMETOLOGY METHOD 03/13/2024 11:26 AM [facility] RDW 15.1(H) 11.0 - 15.0 % LAB HEMETOLOGY METHOD 03/13/2024 11:26 AM [facility] Platelets 434(H) 130 - 400 K/mcL LAB HEMETOLOGY METHOD 03/13/2024 11:26 AM [facility] MPV 9.5 7.0 - 11.0 FL LAB HEMETOLOGY METHOD 03/13/2024 11:26 AM [facility] NRBC 0.0 <1.0 % LAB HEMETOLOGY METHOD 03/13/2024 11:26 AM [facility] NRBC Absolute 0.00 <0.10 K/mcL LAB HEMETOLOGY METHOD 03/13/2024 11:26 AM [facility] Blood Venous blood specimen / Unknown Venipuncture / Unknown 03/13/2024 6:02 AM EST 03/13/2024 11:05 AM EST Rakesh Bullock MD LAB BLOOD ORDERABLES Final Resu lt [facility] [address] [place] [address], documented in this encounter Visit Diagnoses Diagnosis Methicillin resistant Staphylococcus aureus infection, unspecified site Essential (primary) hypertension Unspecified essential hypertension documented in this encounter Additional Health Concerns Infection Onset Date Last Indicated Resolved Time MRSA 02/19/2024 06/13/2024 06/19/2024 12:0 3 PM EDT MRSA 06/27/2024 06/27/2024 07/01/2024 7:30 AM EDT MRSA 06/27/2024 06/27/2024 07/02/2024 1:23 PM EDT documented as of this encounter Care Teams Director Of Plant Operations Relationship Specialty Start Date End Date Allyson Fairchild NP [address] [place] [address] PCP - General Family Medicine 02/18/24 documented as of this encounter
--- OUTSIDE RECORDS SUMMARY | 2024-12-03 09:52 | XMS_ITS | Patient Health Record ---
Author Organization [facility] Address [address] [facility] [address] [place] [address] [phone] Care Team Providers Care Mechanical Development Engineer Name Role Phone Allyson Fairchild Primary Care Provider [phone] [facility] Unavailable [phone] Allergies No Known Allergies Results Component Value Reference Range Notes MM Digital Mammo Screening Reviewed date:10/29/2024 07:59:03 PM Interpretation: Performing Lab: Notes/Report: PROCEDURE: MM Digital Mammo Screening INDICATION: Screening for breast cancer. No known palpable abnormalities. COMPARISON: Priors, most recent dated 03/05/2023 TECHNIQUE: Full-field digital CC and MLO 3D tomosynthesis images of both breasts were acquired. Computer-aided detection (CAD) was utilized in the interpretation of this study. DENSITY: There are scattered areas of fibroglandular density. FINDINGS: No suspicious masses, suspicious microcalcifications, or areas of architectural distortion are seen in either breast to suggest malignancy. IMPRESSION: No mammographic evidence of malignancy. RECOMMENDATION: Annual mammographic screening BI-RADS: 1 (Negative) Lay letter mailed to patient WSN: [id number] Ordering Physician: Allyson Fairchild Dictated By: Roya Burciaga MD COMPLETE BLOOD COUNT Reviewed date:03/25/2024 08:34:59 AM Interpretation: Performing Lab: Notes/Report: WBC 6.6 4.8-10.8 K/mcL RBC 3.30 3.80-4.80 M/mcL Hemoglobin 8.9 11.5-16.0 g/dL Hematocrit 29.0 35.0-47.0 % MCV 88.1 79.0-98.0 FL MCH 27.1 27.0-32.0 pcg MCHC 30.7 32.0-37.0 g/dL RDW 15.0 11.0-15.0 % Platelets 399 130-400 K/mcL MPV 9.1 7.0-11.0 FL NRBC 0.0 <1.0 % NRBC Absolute 0.00 <0.10 K/mcL SEDIMENTATION RATE Reviewed date:03/25/2024 08:34:59 AM Interpretation: Performing Lab: Notes/Report: Sed Rate >130 0-30 mm/hr C-REACTIVE PROTEIN Reviewed date:03/25/2024 08:34:59 AM Interpretation: Performing Lab: Notes/Report: C-Reactive Protein 10.50 <=0.50 mg/dL VANCOMYCIN, TROUGH Reviewed date:03/25/2024 08:34:59 AM Interpretation: Performing Lab: Notes/Report: Vancomycin Trough 24.6 10.0-20.0 mcg/mL VANCOMYCIN, TROUGH Reviewed date:03/27/2024 11:10:38 AM Interpretation: Performing Lab: Notes/Report: Vancomycin Trough 9.3 10.0-20.0 mcg/mL COMPREHENSIVE METABOLIC PANE L Reviewed date:04/01/2024 07:10:54 AM Interpretation: Performing Lab: Notes/Report: Sodium 139 133-145 mmol/L Potassium 4.6 3.5-5.5 mmol/L Chloride 106 96-110 mmol/L CO2 27 21-32 mmol/L Anion Gap 6 3-11 Glucose 90 70-100 mg/dL BUN 18 5-25 mg/dL Creatinine 0.70 0.50-1.10 mg/dL eGFR 90 >=60 mL/min/1.73m2 Calculation based on the?Chronic Kidney Disease Epidemiology Collaboration (CKD-EPI) equation refit?without adjustment for race. BUN/Creatinine Ratio 25.7 Calcium 9.1 8.5-10.5 mg/dL AST (SGOT) 11 10-42 unit/L ALT (SGPT) 15 10-60 unit/L Alkaline Phosphatase 107 42-121 unit/L Total Protein 6.3 6.0-8.0 g/dL Albumin 2.6 3.2-5.0 g/dL Total Bilirubin 0.3 0.0-1.4 mg/dL COMPLETE BLOOD COUNT Reviewed date:04/01/2024 07:10:54 AM Interpretation: Performing Lab: Notes/Report: WBC 7.1 4.8-10.8 K/mcL RBC 3.10 3.80-4.80 M/mcL Hemoglobin 8.4 11.5-16.0 g/dL Hematocrit 28.2 35.0-47.0 % MCV 91.6 79.0-98.0 FL MCH 27.3 27.0-32.0 pcg MCHC 29.8 32.0-37.0 g/dL RDW 15.5 11.0-15.0 % Platelets 420 130-400 K/mcL MPV 8.9 7.0-11.0 FL NRBC 0.0 <1.0 % NRBC Absolute 0.00 <0.10 K/mcL SEDIMENTATION RATE Reviewed date:04/01/2024 07:10:54 AM Interpretation: Performing Lab: Notes/Report: Sed Rate >130 0-30 mm/hr C-REACTIVE PROTEIN Reviewed date:04/01/2024 07:10:54 AM Interpretation: Performing Lab: Notes/Report: C-Reactive Protein 5.45 <=0.50 mg/dL VANCOMYCIN, TROUGH Reviewed date:04/01/2024 07:10:54 AM Interpretation: Performing Lab: Notes/Report: Vancomycin Trough 12.3 10.0-20.0 mcg/mL VANCOMYCIN, TROUGH Reviewed date:07/15/2024 01:31:25 PM Interpretation: Performing Lab: Notes/Report: Vancomycin Trough 16.7 10.0-20.0 mcg/mL BASIC METABOLIC PANEL Reviewed date:07/17/2024 12:49:37 PM Interpretation: Performing Lab: Notes/Report: Sodium 138 133-145 mmol/L Potassium 4.1 3.5-5.5 mmol/L Chloride 104 96-110 mmol/L CO2 29 21-32 mmol/L Anion Gap 5 3-11 Glucose 95 70-100 mg/dL BUN 12 5-25 mg/dL Creatinine 0.89 0.50-1.10 mg/dL eGFR 67 >=60 mL/min/1.73m2 Calculation based on the Chronic Kidney Disease Epidemiology Collaboration (CKD-EPI) equation refit without adjustment for race. BUN/Creatinine Ratio 13.5 Calcium 9.5 8.5-10.5 mg/dL COMPLETE BLOOD COUNT Reviewed date:07/17/2024 09:38:34 AM Interpretation: Performing Lab: Notes/Report: WBC 6.0 4.8-10.8 K/mcL RBC 3.80 3.80-4.80 M/mcL Hemoglobin 10.0 11.5-16.0 g/dL Hematocrit 33.0 35.0-47.0 % MCV 87.8 79.0-98.0 FL MCH 26.6 27.0-32.0 pcg MCHC 30.3 32.0-37.0 g/dL RDW 13.9 11.0-15.0 % Platelets 249 130-400 K/mcL MPV 9.6 7.0-11.0 FL NRBC 0.0 <1.0 % NRBC Absolute 0.00 <0.10 K/mcL BASIC METABOLIC PANEL Reviewed date:07/24/2024 02:18:17 PM Interpretation: Performing Lab: Notes/Report: Sodium 141 133-145 mmol/L Potassium 3.9 3.5-5.5 mmol/L Chloride 107 96-110 mmol/L CO2 26 21-32 mmol/L Anion Gap 8 3-11 Glucose 85 70-100 mg/dL BUN 13 5-25 mg/dL Creatinine 0.89 0.50-1.10 mg/dL eGFR 67 >=60 mL/min/1.73m2 Calculation based on the Chronic Kidney Disease Epidemiology Collaboration (CKD-EPI) equation refit without adjustment for race. BUN/Creatinine Ratio 14.6 Calcium 9.1 8.5-10.5 mg/dL COMPREHENSIVE METABOLIC PANE L Reviewed date:03/25/2024 08:34:58 AM Interpretation: Performing Lab: Notes/Report: Sodium 136 133-145 mmol/L Potassium 5.1 3.5-5.5 mmol/L Chloride 103 96-110 mmol/L CO2 27 21-32 mmol/L Anion Gap 6 3-11 Glucose 89 70-100 mg/dL BUN 16 5-25 mg/dL Creatinine 0.64 0.50-1.10 mg/dL eGFR 92 >=60 mL/min/1.73m2 Calculation based on the?Chronic Kidney Disease Epidemiology Collaboration (CKD-EPI) equation refit?without adjustment for race. BUN/Creatinine Ratio 25.0 Calcium 9.2 8.5-10.5 mg/dL AST (SGOT) 13 10-42 unit/L ALT (SGPT) 16 10-60 unit/L Alkaline Phosphatase 110 42-121 unit/L Total Protein 6.7 6.0-8.0 g/dL Albumin 2.6 3.2-5.0 g/dL Total Bilirubin 0.4 0.0-1.4 mg/dL VANCOMYCIN, TROUGH Reviewed date:03/26/2024 09:09:59 AM Interpretation: Performing Lab: Notes/Report: Vancomycin Trough 20.0 10.0-20.0 mcg/mL COMPLETE BLOOD COUNT Reviewed date:07/12/2024 08:04:00 AM Interpretation: Performing Lab: Notes/Report: WBC 7.3 4.8-10.8 K/mcL RBC 3.60 3.80-4.80 M/mcL Hemoglobin 9.5 11.5-16.0 g/dL Hematocrit 31.6 35.0-47.0 % MCV 87.3 79.0-98.0 FL MCH 26.2 27.0-32.0 pcg MCHC 30.1 32.0-37.0 g/dL RDW 13.9 11.0-15.0 % Platelets 320 130-400 K/mcL MPV 9.2 7.0-11.0 FL NRBC 0.0 <1.0 % NRBC Absolute 0.00 <0.10 K/mcL BASIC METABOLIC PANEL Reviewed date:07/12/2024 08:04:00 AM Interpretation: Performing Lab: Notes/Report: Sodium 137 133-145 mmol/L Potassium 4.4 3.5-5.5 mmol/L Chloride 102 96-110 mmol/L CO2 31 21-32 mmol/L Anion Gap 4 3-11 Glucose 90 70-100 mg/dL BUN 12 5-25 mg/dL Creatinine 0.92 0.50-1.10 mg/dL eGFR 65 >=60 mL/min/1.73m2 Calculation based on the Chronic Kidney Disease Epidemiology Collaboration (CKD-EPI) equation refit without adjustment for race. BUN/Creatinine Ratio 13.0 Calcium 9.7 8.5-10.5 mg/dL SEDIMENTATION RATE Reviewed date:07/08/2024 11:09:37 AM Interpretation: Performing Lab: Notes/Report: Sed Rate 105 0-30 mm/hr CBC WITH AUTO DIFFERENTIAL Reviewed date:07/08/2024 11:09:37 AM Interpretation: Performing Lab: Notes/Report: WBC 7.1 4.8-10.8 K/mcL RBC 3.70 3.80-4.80 M/mcL Hemoglobin 9.9 11.5-16.0 g/dL Hematocrit 32.7 35.0-47.0 % MCV 87.4 79.0-98.0 FL MCH 26.5 27.0-32.0 pcg MCHC 30.3 32.0-37.0 g/dL RDW 13.8 11.0-15.0 % Platelets 402 130-400 K/mcL MPV 9.5 7.0-11.0 FL NRBC 0.0 <1.0 % NRBC Absolute 0.00 <0.10 K/mcL Neutrophils Relative 61.3 Lymphocytes Relative 20.1 Monocytes Relative 12.1 Eosinophils Relative 5.1 Basophils Relative 0.7 Immature Granulocytes Relative 0.7 Neutrophils Absolute 4.36 1.50-7.00 K/mcL Lymphocytes Absolute 1.43 1.00-5.00 K/mcL Monocytes Absolute 0.86 0.20-1.00 K/mcL Eosinophils Absolute 0.36 0.00-0.50 K/mcL Basophils Absolute 0.05 0.00-0.20 K/mcL Immature Granulocytes Absolute 0.05 0.00-0.03 K/mcL COMPLETE BLOOD COUNT Reviewed date:07/24/2024 02:18:17 PM Interpretation: Performing Lab: Notes/Report: WBC 4.8 4.8-10.8 K/mcL RBC 3.60 3.80-4.80 M/mcL Hemoglobin 9.5 11.5-16.0 g/dL Hematocrit 31.3 35.0-47.0 % MCV 86.2 79.0-98.0 FL MCH 26.2 27.0-32.0 pcg MCHC 30.4 32.0-37.0 g/dL RDW 14.2 11.0-15.0 % Platelets 236 130-400 K/mcL MPV 9.9 7.0-11.0 FL NRBC 0.0 <1.0 % NRBC Absolute 0.00 <0.10 K/mcL CBC WITH AUTO DIFFERENTIAL Reviewed date:08/04/2024 12:17:25 PM Interpretation: Performing Lab: Notes/Report: WBC 5.1 4.8-10.8 K/mcL RBC 3.70 3.80-4.80 M/mcL Hemoglobin 9.8 11.5-16.0 g/dL Hematocrit 32.6 35.0-47.0 % MCV 87.6 79.0-98.0 FL MCH 26.3 27.0-32.0 pcg MCHC 30.1 32.0-37.0 g/dL RDW 14.4 11.0-15.0 % Platelets 220 130-400 K/mcL MPV 10.1 7.0-11.0 FL NRBC 0.0 <1.0 % NRBC Absolute 0.00 <0.10 K/mcL Neutrophils Relative 53.4 Lymphocytes Relative 25.1 Monocytes Relative 13.0 Eosinophils Relative 7.7 Basophils Relative 0.6 Immature Granulocytes Relative 0.2 Neutrophils Absolute 2.70 1.50-7.00 K/mcL Lymphocytes Absolute 1.27 1.00-5.00 K/mcL Monocytes Absolute 0.66 0.20-1.00 K/mcL Eosinophils Absolute 0.39 0.00-0.50 K/mcL Basophils Absolute 0.03 0.00-0.20 K/mcL Immature Granulocytes Absolute 0.01 0.00-0.03 K/mcL COMPREHENSIVE METABOLIC PANE L Reviewed date:08/04/2024 12:17:25 PM Interpretation: Performing Lab: Notes/Report: Sodium 140 133-145 mmol/L Potassium 4.2 3.5-5.5 mmol/L Chloride 105 96-110 mmol/L CO2 29 21-32 mmol/L Anion Gap 6 3-11 Glucose 74 70-100 mg/dL BUN 15 5-25 mg/dL Creatinine 0.97 0.50-1.10 mg/dL eGFR 61 >=60 mL/min/1.73m2 Calculation based on the Chronic Kidney Disease Epidemiology Collaboration (CKD-EPI) equation refit without adjustment for race. BUN/Creatinine Ratio 15.5 Calcium 9.3 8.5-10.5 mg/dL AST (SGOT) 21 10-42 unit/L ALT (SGPT) 23 10-60 unit/L Alkaline Phosphatase 93 42-121 unit/L Total Protein 6.2 6.0-8.0 g/dL Albumin 3.3 3.2-5.0 g/dL Total Bilirubin 0.4 0.0-1.4 mg/dL C-REACTIVE PROTEIN Reviewed date:08/04/2024 12:17:25 PM Interpretation: Performing Lab: Notes/Report: C-Reactive Protein 0.52 <=0.50 mg/dL Chest 2 Views Frontal and La t Reviewed date:08/18/2024 02:35:16 PM Interpretation: Performing Lab: Notes/Report: EKG Reviewed date:2024 07:53:13 AM Interpretation: Performing Lab: Notes/Report: ECGDiastolicBP 68 ECGHr 102 ECGPRInterval 156 ECGPWaveAxis 40 ECGQRSDuration 90 ECGQrsWaveAxis -38 ECGQTcInterval 425 ECGQTInterval 352 ECGSystolicBP 118 ECGTWaveAxis 22 RR_DiastolicBP 0 RR_MaxRRInterval 0 RR_MeanHR 0 RR_MeanRRInterval 0 RR_MinRRInterval 0 RR_NumBeats 0 RR_NumNormalBeats 0 RR_SystolicBP 0 Comp. Metabolic Panel (14)-3 Reviewed date:08/14/2024 01:06:17 PM Interpretation: Performing Lab:[facility] Olivares, [address] [facility], [place], Phone - [phone], Director - MDKwesi Notes/Report: Glucose 100 70-99 mg/dL BUN 24 8-27 mg/dL Creatinine 1.04 0.57-1.00 mg/dL eGFR 55 >59 mL/min/1.73 BUN/Creatinine Ratio 23 12-28 Sodium 141 134-144 mmol/L Potassium 4.7 3.5-5.2 mmol/L Chloride 104 96-106 mmol/L Carbon Dioxide, Total 15 20-29 mmol/L Calcium 10.3 8.7-10.3 mg/dL Protein, Total 7.9 6.0-8.5 g/dL Albumin 4.7 3.8-4.8 g/dL Globulin, Total 3.2 1.5-4.5 g/dL Bilirubin, Total <0.2 0.0-1.2 mg/dL Alkaline Phosphatase 119 44-121 IU/L AST (SGOT) 29 0-40 IU/L ALT (SGPT) 21 0-32 IU/L B-Type Natriuretic Peptide-1 [id number] Reviewed date:08/14/2024 01:06:17 PM Interpretation: Performing Lab:[facility] Olivares, [address], [place], Phone - [phone], Director - MDJoivette Notes/Report: B-Type Natriuretic Peptide 26.3 0.0-100.0 pg/m L Siemens ADVIA Centaur XP methodology Albumin/Creatinine Ratio,Uri ne-[id number] Reviewed date:08/14/2024 01:06:17 PM Interpretation: Performing Lab:Melanie Olivares [address] [place] [address], Phone - [phone], Director - MDMaria Ddry Notes/Report: Creatinine, Urine 95.6 Not Estab. mg/dL Albumin, Urine 11.2 Not Estab. ug/mL Alb/Creat Ratio 12 0-29 mg/g creat Normal: 0 - 29 Moderately increased: 30 - 300 Severely increased: >300 Respiratory Panel w/ SARS-Co [id number] Reviewed date:08/14/2024 01:06:17 PM Interpretation: Performing Lab:Melanie Olivares, [address] [place] [address], Phone - [phone], Director - Quinten Notes/Report: Adenovirus Not Detected Not Detected Coronavirus HKU1 Not Detected Not Detected Coronavirus NL63 Not Detected Not Detected Coronavirus 229E Not Detected Not Detected Coronavirus OC43 Not Detected Not Detected SARS-CoV-2 Not Detected Not Detected Human Metapneumovirus Not Detected Not Detected Human Rhinovirus/Enterovirus Not Detected Not Detected Influenza A Not Detected Not Detected Influenza A/H1 Not Detected Not Detected Influenza A/H1-2009 Not Detected Not Detected Influenza A/H3 Not Detected Not Detected Influenza B Not Detected Not Detected Parainfluenza 1 Not Detected Not Detected Parainfluenza 2 Not Detected Not Detected Parainfluenza 3 Not Detected Not Detected Parainfluenza 4 Not Detected Not Detected Respiratory Syncytial Virus Not Detected Not Detected Bordetella parapertussis Not Detected Not Detected Bordetella pertussis Not Detected Not Detected Chlamydophila pneumoniae Not Detected Not Detected Mycoplasma pneumoniae Not Detected Not Detected I-[id number]-[id number] Reviewed date:08/14/2024 01:06:17 PM Interpretation: Performing Lab:Melanie Olivares [address] [place] [address], Phone - [phone], Director - Quinten Notes/Report: D-Dimer 0.83 0.00-0.49 mg/L FEU According to the assay director council on aging's published package insert, a normal (<0.50 mg/L FEU) D-dimer result in conjunction with a non-high clinical probability assessment, excludes deep vein thrombosis (DVT) and pulmonary embolism (PE) with high sensitivity. . D-dimer values increase with age and this can make VTE exclusion of an older population difficult. To address this, the [place] [employer], based on best available evidence and recent guidelines, recommends that clinicians use age-adjusted D-dimer thresholds in patients greater than 50 years of age with: a) a low probability of PE who do not meet all Pulmonary Embolism Rule Out Criteria, or b) in those with intermediate probability of PE. The formula for an age-adjusted D-dimer cut-off is age/100 . For example, a 60 year old patient would have an age-adjusted cut-off of 0.60 mg/L FEU and an 80 year old 0.80 mg/L FEU. C-Reactive Protein, Quant-00 [id number] Reviewed date:08/14/2024 01:06:17 PM Interpretation: Performing Lab:[facility], [address] [place] [address], Phone - [phone], Director - Quinten Notes/Report: C-Reactive Protein, Quant 3 0-10 mg/L [facility] n-[id number] Reviewed date:08/14/2024 01:06:17 PM Interpretation: Performing Lab:[facility], [address] [place] [address], Phone - [phone], Director - Quinten Notes/Report: [facility] 0-40 mm/hr CBC With Differential/Platel et-[id number] Reviewed date:08/14/2024 01:06:17 PM Interpretation: Performing Lab:[facility], [address] [place] [address], Phone - [phone], Director - Quinten Notes/Report: WBC 7.7 3.4-10.8 x10E3/uL RBC 4.55 3.77-5.28 x10E6/uL Hemoglobin 12.3 11.1-15.9 g/dL Hematocrit 40.8 34.0-46.6 % MCV 90 79-97 fL MCH 27.0 26.6-33.0 pg MCHC 30.1 31.5-35.7 g/dL RDW 17.2 11.7-15.4 % Platelets 363 150-450 x10E3/uL Neutrophils 60 Not Estab. % Lymphs 27 Not Estab. % Monocytes 8 Not Estab. % Eos 3 Not Estab. % Basos 1 Not Estab. % Neutrophils (Absolute) 4.7 1.4-7.0 x10E3/uL Lymphs (Absolute) 2.1 0.7-3.1 x10E3/uL Monocytes(Absolute) 0.6 0.1-0.9 x10E3/uL Eos (Absolute) 0.2 0.0-0.4 x10E3/uL Baso (Absolute) 0.1 0.0-0.2 x10E3/uL Immature Granulocytes 1 Not Estab. % Immature Grans (Abs) 0.0 0.0-0.1 x10E3/uL Urinalysis, Complete-[id number] Reviewed date:08/14/2024 01:06:17 PM Interpretation: Performing Lab:[facility], [address] [place] [address], Phone - [phone], Director - MDJodry Notes/Report: Specific Parker 1.017 1.005-1.030 pH 5.5 5.0-7.5 Urine-Color Yellow Yellow Appearance Clear Clear WBC Esterase Trace Negative Protein Trace Negative/Trace Glucose Negative Negative Ketones Negative Negative Occult Blood Negative Negative Bilirubin Negative Negative Urobilinogen,Semi-Qn 0.2 0.2-1.0 mg/dL Nitrite, Urine Negative Negative Microscopic Examination See below: Micr oscopic was indicated and was performed. WBC 0-5 0 - 5 /hpf RBC 0-2 0 - 2 /hpf Epithelial Cells (non renal) 0-10 0 - 10 /hpf Casts None seen None seen /lpf Bacteria None seen None seen/Few SEDIMENTATION RATE Reviewed date:08/04/2024 12:17:25 PM Interpretation: Performing Lab: Notes/Report: Sed Rate 43 0-30 mm/hr VANCOMYCIN, TROUGH Reviewed date:08/05/2024 10:17:26 AM Interpretation: Performing Lab: Notes/Report: Vancomycin Trough 16.5 10.0-20.0 mcg/mL JAK2 Mutation Analysis, Qual -[id number] Reviewed date:06/18/2024 08:25:58 AM Interpretation: Performing Lab:[facility], [address] [facility], [place], Phone - [phone], Director - MDJodry Notes/Report: JAK2 V617F mutation detection Result: NEGATIVE for the JAK2 V617F mutation. . Interpretation: The G to T nucleotide change encoding the V617F mutation was not detected. This result does not rule out the presence of the JAK2 mutation at a level below the sensitivity of detection of this assay, or the presence of other mutations within JAK2 not detected by this assay. This result does not rule out a diagnosis of polycythemia vera, essential thrombocythemia or idiopathic myelofibrosis as the V617F mutation is not detected in all patients with these disorders. . Background: JAK2 is a cytoplasmic tyrosine kinase with a hummel role in signal transduction from multiple hematopoietic growth factor receptors. A point mutation within exon 14 of the JAK2 gene ([id number]) encoding a valine to phenylalanine substitution at position 617 of the JAK2 protein (V617F) has been identified in most patients with polycythemia vera, and in about half of those with either essential thrombocythemia or idiopathic myelofibrosis. The V617F has also been detected, although infrequently, in other myeloid disorders such as chronic myelomonocytic leukemia and chronic neutrophilic luekemia. V617F is an acquired mutation that alters a highly conserved valine present in the negative regulatory JH2 domain of the JAK2 protein and is predicted to dysregulate kinase activity. . Methodology: Total genomic DNA was extracted and subjected to TaqMan real-time PCR amplification/detection. Two amplification products per sample were monitored by real-time PCR using primers/probes specific to JAK2 wild type (WT) and JAK2 mutant V617F. The TEJ2006 Absolute Quantitation software will compare the patient specimen valuse to the standard curves and generate percent values for wild type and mutant type. In vitro studies have indicated that this assay has an analytical sensitivity of 1%. . References: Ambrosio EJ, Dustin LM, Melvin PJ, et al. Acquired mutation of the tyrosine kinase JAK2 in human myeloproliferative disorders. Lancet. 2005 Apr 23; 365(0976):3427-3051. Geoffrey Marlow, Darci V, Kendra Ashraf KAITLIN. A unique clonal JAK2 mutation leading to constitutive signaling causes polycythaemia vera. Nature. 2005 Jun 02; 623(3045):6431-1363. Gurjit R, Mary F, Emiliano , et al. A hciu-vy-tlnfbifa mutation of JAK2 in myeloproliferative disorders. N Engl J Med. 2005 Jun 02; 35217):6922-5488. Director Review: Technical Component performed at [facility] . Professional Component performed by: Dara Alvarez PhD, [facility] Director, Molecular Oncology [facility] RTP [id number], [address] [address] This test was developed and its performance characteristics determined by [facility]. It has not been cleared or approved by the Food and Drug Administration. C-Reactive Protein, Quant-00 6627 Reviewed date:06/18/2024 08:25:58 AM Interpretation: Performing Lab:[facility] [place], [address] [facility], [place], Phone - [phone], Director - [facility] Notes/Report: C-Reactive Protein, Quant 130 0-10 mg/L CR Spine Cervical 2 or 3 Vie ws Reviewed date:02/08/2024 02:56:53 PM Interpretation: Performing Lab: Notes/Report: CR Shoulder LT Min 2 View Reviewed date:02/08/2024 02:55:43 PM Interpretation: Performing Lab: Notes/Report: CR Spine Lumbar 2 or 3 Views Reviewed date:02/08/2024 02:56:10 PM Interpretation: Performing Lab: Notes/Report: Phosphatidylethanol (PEth)-7 39899 Reviewed date:02/11/2024 01:26:55 PM Interpretation: Performing Lab:[facility] [place], [address] [facility], [place], Phone - [phone], Director - ORKwesi Notes/Report: PHOSPHATIDYLETHANOL Positive Phosphatidylethanol (PEth) 395 Analyzed compound: PEth 16:0/18:1. 3-tvsehkwcl-2-oleoyl-sn-g [id number]. Analysis performed by Liquid Chromatography with Tandem Mass Spectrometry (LC/MS/MS). Detection limit: 20 ng/mL PEth levels in excess of 20 ng/mL are considered evidence of moderate to heavy ethanol consumption. However, the [facility] for [facility]stance Abuse [facility] (CSAT) advises caution in interpretation and use of biomarkers alone to assess alcohol use. Results should be interpreted in the context of all available clinical and behavioral information. Reference: Substance Abuse and Mental Health Services Administration (2012). The Role of Biomarkers in the Treatment of Alcohol Use Disorders , 2012 Revision. Advisory, Volume 11, Issue 2. This test was developed and its performance characteristics determined by [facility]. It has not been cleared or approved by the Food and Drug Administration. FIB-4 w/Rx [facility] us-[id number] Reviewed date:02/11/2024 01:26:55 PM Interpretation: Performing Lab:Melanie Olivares, [address] [facility], [place], Phone - [phone], Director - Wendiy Notes/Report: FIB-4 Index 0.71 0.00-2.67 0.00 - 1.29 Low risk for advanced liver fibrosis 1.30 - 2.67 Indeterminate risk for advanced liver fibrosis >2.67 High risk for advanced fibrosis and for the development of other liver related events Comp. Metabolic Panel (14)-3 Reviewed date:02/11/2024 01:26:55 PM Interpretation: Performing Lab:Melanie Olivares, [address] [facility], [place], Phone - [phone], Director - Wendiy Notes/Report: Glucose 179 70-99 mg/dL BUN 12 8-27 mg/dL Creatinine 0.96 0.57-1.00 mg/dL eGFR 61 >59 mL/min/1.73 BUN/Creatinine Ratio 13 12-28 Sodium 132 134-144 mmol/L Potassium 3.6 3.5-5.2 mmol/L Chloride 91 96-106 mmol/L Carbon Dioxide, Total 21 20-29 mmol/L Calcium 9.5 8.7-10.3 mg/dL Protein, Total 6.3 6.0-8.5 g/dL Albumin 3.5 3.8-4.8 g/dL Globulin, Total 2.8 1.5-4.5 g/dL Bilirubin, Total 0.3 0.0-1.2 mg/dL Alkaline Phosphatase 118 44-121 IU/L AST (SGOT) 22 0-40 IU/L ALT (SGPT) 24 0-32 IU/L CBC With Differential/Platel et-[id number] Reviewed date:02/11/2024 01:26:55 PM Interpretation: Performing Lab:Melanie Olivares, [address], [place], Phone - [phone], Director - Wendiy Notes/Report: WBC 30.0 3.4-10.8 x10E3/uL RBC 3.92 3.77-5.28 x10E6/uL Hemoglobin 11.9 11.1-15.9 g/dL Hematocrit 36.1 34.0-46.6 % MCV 92 79-97 fL MCH 30.4 26.6-33.0 pg MCHC 33.0 31.5-35.7 g/dL RDW 12.4 11.7-15.4 % Platelets 484 150-450 x10E3/uL Neutrophils 89 Not Estab. % Lymphs 2 Not Estab. % Monocytes 7 Not Estab. % Eos 0 Not Estab. % Basos 1 Not Estab. % Neutrophils (Absolute) 26.8 1.4-7.0 x10E3/uL Lymphs (Absolute) 0.6 0.7-3.1 x10E3/uL Monocytes(Absolute) 2.0 0.1-0.9 x10E3/uL Eos (Absolute) 0.0 0.0-0.4 x10E3/uL Baso (Absolute) 0.1 0.0-0.2 x10E3/uL Immature Granulocytes 1 Not Estab. % Immature Grans (Abs) 0.3 0.0-0.1 x10E3/uL (An elevated percentage of Immature Granulocytes has not been found to be clinically significant as a sole clinical predictor of disease. Does NOT include bands or blast cells. associated physiological leukocytosis may also show increased immature granulocytes without clinical significance.) Sedimentation Rate-[facility] [id number] Reviewed date:06/18/2024 08:25:58 AM Interpretation: Performing Lab:atokorekiko Olivares, [address] [place] [address], Phone - [id number], Director - ivette Notes/Report: [facility] 0-40 mm/hr Verified by repeat analysis CBC With Differential/Platel et-[id number] Reviewed date:06/18/2024 08:25:58 AM Interpretation: Performing Lab:[facility], [address] [facility], Phone - [phone], Director - Quinten Notes/Report: WBC 9.2 3.4-10.8 x10E3/uL RBC 4.34 3.77-5.28 x10E6/uL Hemoglobin 11.6 11.1-15.9 g/dL Hematocrit 38.4 34.0-46.6 % MCV 89 79-97 fL MCH 26.7 26.6-33.0 pg MCHC 30.2 31.5-35.7 g/dL RDW 15.4 11.7-15.4 % Platelets 769 150-450 x10E3/uL Neutrophils 74 Not Estab. % Lymphs 17 Not Estab. % Monocytes 7 Not Estab. % Eos 1 Not Estab. % Basos 1 Not Estab. % Neutrophils (Absolute) 6.7 1.4-7.0 x10E3/uL Lymphs (Absolute) 1.6 0.7-3.1 x10E3/uL Monocytes(Absolute) 0.6 0.1-0.9 x10E3/uL Eos (Absolute) 0.1 0.0-0.4 x10E3/uL Baso (Absolute) 0.1 0.0-0.2 x10E3/uL Immature Granulocytes 0 Not Estab. % Immature Grans (Abs) 0.0 0.0-0.1 x10E3/uL Ferritin-[id number] Reviewed date:06/18/2024 08:25:58 AM Interpretation: Performing Lab:[facility], [address] [facility], Phone - [phone], Director - Quinten Notes/Report: Ferritin 972 15-150 ng/mL Iron and TIBC-[id number] Reviewed date:06/18/2024 08:25:57 AM Interpretation: Performing Lab:[facility], [address] [facility], [place], Phone - [phone], Director - MDNinoskay Notes/Report: Iron Bind.Cap.(TIBC) 200 250-450 ug/dL UIBC 180 118-369 ug/dL Iron 20 27-139 ug/dL Iron Saturation 10 15-55 % XR THORACIC SPINE 2 VIEWS Reviewed date:08/22/2024 01:01:35 PM Interpretation: Performing Lab: Notes/Report: See Note [facility], a member of [email or web address] EXAM: XR THORACIC SPINE 2 VIEWS CLINICAL INDICATION: Status post T11-T12 disc and rib resection COMPARISON: CT and x-ray 06/25/2024 TECHNIQUE: AP and lateral views of the thoracic spine were obtained FINDINGS: S-shaped scoliosis, convex to the right is unchanged.. Mild kyphosis centered at T8-T9 is also unchanged. There is poor definition of the intervertebral disc space at T8-T9 and T11-T12, with prominent lucency of the endplates at T11 and T12 correlating with findings of chronic spondylodiscitis that appears similar to the prior study. No new compression deformity. There is underlying spondylosis with loss of disc space height and endplate osteophyte formation that appears unchanged. The osseous structures are demineralized. The paraspinal soft tissues are normal. 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 Report reviewed and signed by : Dr. Ranjan Mauro MD on 08/22/2024 12:43 PM. Workstation Name - [id number] -------- FINAL REPORT -------- Dictated By: Ranjan Mauro Dictated Date: 08/22/2024 12:37 ET Assigned Physician: Ranjan Mauro Reviewed and Electronically Signed By: Ranjan Mauro Signed Date: 08/22/2024 12:43 ET Workstation ID: [id number] Transcribed By: Self Edit Transcribed Date: 08/22/2024 12:37 ET SEDIMENTATION RATE Reviewed date:07/28/2024 01:25:24 PM Interpretation: Performing Lab: Notes/Report: Sed Rate 46 0-30 mm/hr CBC WITH AUTO DIFFERENTIAL Reviewed date:07/28/2024 01:25:23 PM Interpretation: Performing Lab: Notes/Report: WBC 5.6 4.8-10.8 K/mcL RBC 3.80 3.80-4.80 M/mcL Hemoglobin 9.9 11.5-16.0 g/dL Hematocrit 32.7 35.0-47.0 % MCV 87.2 79.0-98.0 FL MCH 26.4 27.0-32.0 pcg MCHC 30.3 32.0-37.0 g/dL RDW 14.7 11.0-15.0 % Platelets 224 130-400 K/mcL MPV 10.1 7.0-11.0 FL NRBC 0.0 <1.0 % NRBC Absolute 0.00 <0.10 K/mcL Neutrophils Relative 56.0 Lymphocytes Relative 23.4 Monocytes Relative 10.8 Eosinophils Relative 8.7 Basophils Relative 0.7 Immature Granulocytes Relative 0.4 Neutrophils Absolute 3.16 1.50-7.00 K/mcL Lymphocytes Absolute 1.32 1.00-5.00 K/mcL Monocytes Absolute 0.61 0.20-1.00 K/mcL Eosinophils Absolute 0.49 0.00-0.50 K/mcL Basophils Absolute 0.04 0.00-0.20 K/mcL Immature Granulocytes Absolute 0.02 0.00-0.03 K/mcL VANCOMYCIN, TROUGH Reviewed date:07/21/2024 01:06:47 PM Interpretation: Performing Lab: Notes/Report: Vancomycin Trough 17.6 10.0-20.0 mcg/mL SEDIMENTATION RATE Reviewed date:07/21/2024 03:03:48 PM Interpretation: Performing Lab: Notes/Report: Sed Rate 80 0-30 mm/hr C-REACTIVE PROTEIN Reviewed date:07/21/2024 01:06:47 PM Interpretation: Performing Lab: Notes/Report: C-Reactive Protein 0.60 <=0.50 mg/dL COMPREHENSIVE METABOLIC PANE L Reviewed date:07/21/2024 01:06:47 PM Interpretation: Performing Lab: Notes/Report: Sodium 137 133-145 mmol/L Potassium 4.3 3.5-5.5 mmol/L Chloride 104 96-110 mmol/L CO2 30 21-32 mmol/L Anion Gap 3 3-11 Glucose 88 70-100 mg/dL BUN 13 5-25 mg/dL Creatinine 0.96 0.50-1.10 mg/dL eGFR 61 >=60 mL/min/1.73m2 Calculation based on the Chronic Kidney Disease Epidemiology Collaboration (CKD-EPI) equation refit without adjustment for race. BUN/Creatinine Ratio 13.5 Calcium 9.8 8.5-10.5 mg/dL AST (SGOT) 25 10-42 unit/L ALT (SGPT) 21 10-60 unit/L Alkaline Phosphatase 100 42-121 unit/L Total Protein 6.5 6.0-8.0 g/dL Albumin 3.2 3.2-5.0 g/dL Total Bilirubin 0.4 0.0-1.4 mg/dL CBC WITH AUTO DIFFERENTIAL Reviewed date:07/21/2024 01:06:46 PM Interpretation: Performing Lab: Notes/Report: WBC 5.8 4.8-10.8 K/mcL RBC 3.90 3.80-4.80 M/mcL Hemoglobin 10.3 11.5-16.0 g/dL Hematocrit 33.8 35.0-47.0 % MCV 87.8 79.0-98.0 FL MCH 26.8 27.0-32.0 pcg MCHC 30.5 32.0-37.0 g/dL RDW 14.1 11.0-15.0 % Platelets 265 130-400 K/mcL MPV 9.9 7.0-11.0 FL NRBC 0.0 <1.0 % NRBC Absolute 0.00 <0.10 K/mcL Neutrophils Relative 61.7 Lymphocytes Relative 19.1 Monocytes Relative 10.2 Eosinophils Relative 7.8 Basophils Relative 0.7 Immature Granulocytes Relative 0.5 Neutrophils Absolute 3.56 1.50-7.00 K/mcL Lymphocytes Absolute 1.10 1.00-5.00 K/mcL Monocytes Absolute 0.59 0.20-1.00 K/mcL Eosinophils Absolute 0.45 0.00-0.50 K/mcL Basophils Absolute 0.04 0.00-0.20 K/mcL Immature Granulocytes Absolute 0.03 0.00-0.03 K/mcL BASIC METABOLIC PANEL Reviewed date:07/21/2024 08:28:05 AM Interpretation: Performing Lab: Notes/Report: Sodium 137 133-145 mmol/L Potassium 4.1 3.5-5.5 mmol/L Chloride 103 96-110 mmol/L CO2 29 21-32 mmol/L Anion Gap 5 3-11 Glucose 84 70-100 mg/dL BUN 14 5-25 mg/dL Creatinine 0.91 0.50-1.10 mg/dL eGFR 66 >=60 mL/min/1.73m2 Calculation based on the Chronic Kidney Disease Epidemiology Collaboration (CKD-EPI) equation refit without adjustment for race. BUN/Creatinine Ratio 15.4 Calcium 9.4 8.5-10.5 mg/dL VANCOMYCIN, RANDOM Reviewed date:07/14/2024 02:16:28 PM Interpretation: Performing Lab: Notes/Report: Vancomycin Rm 23.4 SEDIMENTATION RATE Reviewed date:07/14/2024 03:08:11 PM Interpretation: Performing Lab: Notes/Report: Sed Rate 71 0-30 mm/hr C-REACTIVE PROTEIN Reviewed date:07/14/2024 02:16:28 PM Interpretation: Performing Lab: Notes/Report: C-Reactive Protein 0.71 <=0.50 mg/dL COMPREHENSIVE METABOLIC PANE L Reviewed date:07/14/2024 02:16:28 PM Interpretation: Performing Lab: Notes/Report: Sodium 138 133-145 mmol/L Potassium 3.9 3.5-5.5 mmol/L Chloride 103 96-110 mmol/L CO2 29 21-32 mmol/L Anion Gap 6 3-11 Glucose 79 70-100 mg/dL BUN 12 5-25 mg/dL Creatinine 0.96 0.50-1.10 mg/dL eGFR 61 >=60 mL/min/1.73m2 Calculation based on the Chronic Kidney Disease Epidemiology Collaboration (CKD-EPI) equation refit without adjustment for race. BUN/Creatinine Ratio 12.5 Calcium 9.4 8.5-10.5 mg/dL AST (SGOT) 13 10-42 unit/L ALT (SGPT) 14 10-60 unit/L Alkaline Phosphatase 96 42-121 unit/L Total Protein 5.9 6.0-8.0 g/dL Albumin 2.9 3.2-5.0 g/dL Total Bilirubin 0.2 0.0-1.4 mg/dL CBC WITH AUTO DIFFERENTIAL Reviewed date:07/14/2024 03:08:11 PM Interpretation: Performing Lab: Notes/Report: WBC 5.8 4.8-10.8 K/mcL RBC 3.70 3.80-4.80 M/mcL Hemoglobin 9.6 11.5-16.0 g/dL Hematocrit 33.0 35.0-47.0 % MCV 88.9 79.0-98.0 FL MCH 25.9 27.0-32.0 pcg MCHC 29.1 32.0-37.0 g/dL RDW 14.1 11.0-15.0 % Platelets 307 130-400 K/mcL MPV 9.7 7.0-11.0 FL NRBC 0.0 <1.0 % NRBC Absolute 0.00 <0.10 K/mcL Neutrophils Relative 61.1 Lymphocytes Relative 21.0 Monocytes Relative 11.1 Eosinophils Relative 5.6 Basophils Relative 0.9 Immature Granulocytes Relative 0.3 Neutrophils Absolute 3.52 1.50-7.00 K/mcL Lymphocytes Absolute 1.21 1.00-5.00 K/mcL Monocytes Absolute 0.64 0.20-1.00 K/mcL Eosinophils Absolute 0.32 0.00-0.50 K/mcL Basophils Absolute 0.05 0.00-0.20 K/mcL Immature Granulocytes Absolute 0.02 0.00-0.03 K/mcL COMPREHENSIVE METABOLIC PANE L Reviewed date:07/04/2024 08:37:06 AM Interpretation: Performing Lab: Notes/Report: Sodium 136 133-145 mmol/L Potassium 3.9 3.5-5.5 mmol/L Chloride 99 96-110 mmol/L CO2 31 21-32 mmol/L Anion Gap 6 3-11 Glucose 96 70-100 mg/dL BUN 13 5-25 mg/dL Creatinine 0.84 0.50-1.10 mg/dL eGFR 72 >=60 mL/min/1.73m2 Calculation based on the Chronic Kidney Disease Epidemiology Collaboration (CKD-EPI) equation refit without adjustment for race. BUN/Creatinine Ratio 15.5 Calcium 9.0 8.5-10.5 mg/dL AST (SGOT) 11 10-42 unit/L ALT (SGPT) 10 10-60 unit/L Alkaline Phosphatase 93 42-121 unit/L Total Protein 6.2 6.0-8.0 g/dL Albumin 2.6 3.2-5.0 g/dL Total Bilirubin 0.3 0.0-1.4 mg/dL CBC WITH AUTO DIFFERENTIAL Reviewed date:07/04/2024 08:37:06 AM Interpretation: Performing Lab: Notes/Report: WBC 8.0 4.8-10.8 K/mcL RBC 3.50 3.80-4.80 M/mcL Hemoglobin 9.4 11.5-16.0 g/dL Hematocrit 30.2 35.0-47.0 % MCV 87.3 79.0-98.0 FL MCH 27.2 27.0-32.0 pcg MCHC 31.1 32.0-37.0 g/dL RDW 13.9 11.0-15.0 % Platelets 367 130-400 K/mcL MPV 9.7 7.0-11.0 FL NRBC 0.0 <1.0 % NRBC Absolute 0.00 <0.10 K/mcL Neutrophils Relative 68.1 Lymphocytes Relative 15.0 Monocytes Relative 11.4 Eosinophils Relative 4.5 Basophils Relative 0.4 Immature Granulocytes Relative 0.6 Neutrophils Absolute 5.44 1.50-7.00 K/mcL Lymphocytes Absolute 1.20 1.00-5.00 K/mcL Monocytes Absolute 0.91 0.20-1.00 K/mcL Eosinophils Absolute 0.36 0.00-0.50 K/mcL Basophils Absolute 0.03 0.00-0.20 K/mcL Immature Granulocytes Absolute 0.05 0.00-0.03 K/mcL CULTURE BLOOD Reviewed date:06/20/2024 02:40:22 PM Interpretation: Performing Lab: Notes/Report: Culture, Blood No growth at 5 days CULTURE BLOOD Reviewed date:06/20/2024 02:40:22 PM Interpretation: Performing Lab: Notes/Report: Culture, Blood No growth at 5 days COMPLETE BLOOD COUNT Reviewed date:03/13/2024 02:15:06 PM Interpretation: Performing Lab: Notes/Report: WBC 6.3 4.8-10.8 K/mcL RBC 3.20 3.80-4.80 M/mcL Hemoglobin 8.8 11.5-16.0 g/dL Hematocrit 28.5 35.0-47.0 % MCV 89.9 79.0-98.0 FL MCH 27.8 27.0-32.0 pcg MCHC 30.9 32.0-37.0 g/dL RDW 15.1 11.0-15.0 % Platelets 434 130-400 K/mcL MPV 9.5 7.0-11.0 FL NRBC 0.0 <1.0 % NRBC Absolute 0.00 <0.10 K/mcL VANCOMYCIN, TROUGH Reviewed date:03/11/2024 08:55:09 AM Interpretation: Performing Lab: Notes/Report: Vancomycin Trough 21.9 10.0-20.0 mcg/mL C-REACTIVE PROTEIN Reviewed date:03/11/2024 08:55:09 AM Interpretation: Performing Lab: Notes/Report: C-Reactive Protein 8.20 <=0.50 mg/dL SEDIMENTATION RATE Reviewed date:03/11/2024 08:55:09 AM Interpretation: Performing Lab: Notes/Report: Sed Rate 101 0-30 mm/hr COMPLETE BLOOD COUNT Reviewed date:03/11/2024 08:55:09 AM Interpretation: Performing Lab: Notes/Report: WBC 6.7 4.8-10.8 K/mcL RBC 3.10 3.80-4.80 M/mcL Hemoglobin 8.6 11.5-16.0 g/dL Hematocrit 27.8 35.0-47.0 % MCV 90.8 79.0-98.0 FL MCH 28.1 27.0-32.0 pcg MCHC 30.9 32.0-37.0 g/dL RDW 15.0 11.0-15.0 % Platelets 425 130-400 K/mcL MPV 9.1 7.0-11.0 FL NRBC 0.0 <1.0 % NRBC Absolute 0.00 <0.10 K/mcL COMPREHENSIVE METABOLIC PANE L Reviewed date:03/11/2024 08:55:09 AM Interpretation: Performing Lab: Notes/Report: Sodium 136 133-145 mmol/L Potassium 4.1 3.5-5.5 mmol/L Chloride 109 96-110 mmol/L CO2 21 21-32 mmol/L Anion Gap 6 3-11 Glucose 94 70-100 mg/dL BUN 13 5-25 mg/dL Creatinine 0.49 0.50-1.10 mg/dL eGFR 98 >=60 mL/min/1.73m2 Calculation based on the Chronic Kidney Disease Epidemiology Collaboration (CKD-EPI) equation refit without adjustment for race. BUN/Creatinine Ratio 26.5 Calcium 8.9 8.5-10.5 mg/dL AST (SGOT) 12 10-42 unit/L ALT (SGPT) 22 10-60 unit/L Alkaline Phosphatase 98 42-121 unit/L Total Protein 6.5 6.0-8.0 g/dL Albumin 2.3 3.2-5.0 g/dL Total Bilirubin 0.2 0.0-1.4 mg/dL COMPLETE BLOOD COUNT Reviewed date:03/10/2024 05:14:43 PM Interpretation: Performing Lab: Notes/Report: WBC 7.3 4.8-10.8 K/mcL RBC 3.10 3.80-4.80 M/mcL Hemoglobin 8.7 11.5-16.0 g/dL Hematocrit 28.0 35.0-47.0 % MCV 91.2 79.0-98.0 FL MCH 28.3 27.0-32.0 pcg MCHC 31.1 32.0-37.0 g/dL RDW 15.2 11.0-15.0 % Platelets 434 130-400 K/mcL MPV 9.3 7.0-11.0 FL NRBC 0.0 <1.0 % NRBC Absolute 0.00 <0.10 K/mcL COMPREHENSIVE METABOLIC PANE L Reviewed date:03/10/2024 05:14:43 PM Interpretation: Performing Lab: Notes/Report: Sodium 135 133-145 mmol/L Potassium 4.5 3.5-5.5 mmol/L Chloride 106 96-110 mmol/L CO2 22 21-32 mmol/L Anion Gap 7 3-11 Glucose 90 70-100 mg/dL BUN 12 5-25 mg/dL Creatinine 0.49 0.50-1.10 mg/dL eGFR 98 >=60 mL/min/1.73m2 Calculation based on the Chronic Kidney Disease Epidemiology Collaboration (CKD-EPI) equation refit without adjustment for race. BUN/Creatinine Ratio 24.5 Calcium 8.9 8.5-10.5 mg/dL AST (SGOT) 14 10-42 unit/L ALT (SGPT) 26 10-60 unit/L Alkaline Phosphatase 100 42-121 unit/L Total Protein 6.7 6.0-8.0 g/dL Albumin 2.3 3.2-5.0 g/dL Total Bilirubin 0.3 0.0-1.4 mg/dL BASIC METABOLIC PANEL Reviewed date:03/07/2024 07:07:45 AM Interpretation: Performing Lab: Notes/Report: Sodium 135 133-145 mmol/L Potassium 4.8 3.5-5.5 mmol/L Chloride 107 96-110 mmol/L CO2 23 21-32 mmol/L Anion Gap 5 3-11 Glucose 78 70-100 mg/dL BUN 13 5-25 mg/dL Creatinine 0.57 0.50-1.10 mg/dL eGFR 94 >=60 mL/min/1.73m2 Calculation based on the Chronic Kidney Disease Epidemiology Collaboration (CKD-EPI) equation refit without adjustment for race. BUN/Creatinine Ratio 22.8 Calcium 9.2 8.5-10.5 mg/dL COMPLETE BLOOD COUNT Reviewed date:03/06/2024 12:52:08 PM Interpretation: Performing Lab: Notes/Report: WBC 6.2 4.8-10.8 K/mcL RBC 3.00 3.80-4.80 M/mcL Hemoglobin 8.8 11.5-16.0 g/dL Hematocrit 28.7 35.0-47.0 % MCV 95.0 79.0-98.0 FL MCH 29.1 27.0-32.0 pcg MCHC 30.7 32.0-37.0 g/dL RDW 14.9 11.0-15.0 % Platelets 463 130-400 K/mcL MPV 9.5 7.0-11.0 FL NRBC 0.0 <1.0 % NRBC Absolute 0.00 <0.10 K/mcL COMPLETE BLOOD COUNT Reviewed date:04/15/2024 12:46:55 PM Interpretation: Performing Lab: Notes/Report: WBC 5.7 4.8-10.8 K/mcL RBC 3.50 3.80-4.80 M/mcL Hemoglobin 9.6 11.5-16.0 g/dL Hematocrit 31.0 35.0-47.0 % MCV 87.6 79.0-98.0 FL MCH 27.1 27.0-32.0 pcg MCHC 31.0 32.0-37.0 g/dL RDW 16.9 11.0-15.0 % Platelets 367 130-400 K/mcL MPV 9.1 7.0-11.0 FL NRBC 0.0 <1.0 % NRBC Absolute 0.00 <0.10 K/mcL COMPREHENSIVE METABOLIC PANE L Reviewed date:04/15/2024 12:46:55 PM Interpretation: Performing Lab: Notes/Report: Sodium 140 133-145 mmol/L Potassium 4.2 3.5-5.5 mmol/L Chloride 107 96-110 mmol/L CO2 26 21-32 mmol/L Anion Gap 7 3-11 Glucose 92 70-100 mg/dL BUN 12 5-25 mg/dL Creatinine 0.57 0.50-1.10 mg/dL eGFR 94 >=60 mL/min/1.73m2 Calculation based on the?Chronic Kidney Disease Epidemiology Collaboration (CKD-EPI) equation refit?without adjustment for race. BUN/Creatinine Ratio 21.1 Calcium 9.2 8.5-10.5 mg/dL AST (SGOT) 20 10-42 unit/L ALT (SGPT) 20 10-60 unit/L Alkaline Phosphatase 108 42-121 unit/L Total Protein 6.5 6.0-8.0 g/dL Albumin 2.9 3.2-5.0 g/dL Total Bilirubin 0.3 0.0-1.4 mg/dL C-REACTIVE PROTEIN Reviewed date:04/15/2024 12:46:55 PM Interpretation: Performing Lab: Notes/Report: C-Reactive Protein 1.87 <=0.50 mg/dL SEDIMENTATION RATE Reviewed date:04/15/2024 12:46:55 PM Interpretation: Performing Lab: Notes/Report: Sed Rate 71 0-30 mm/hr VANCOMYCIN, TROUGH Reviewed date:04/15/2024 12:46:55 PM Interpretation: Performing Lab: Notes/Report: Vancomycin Trough 13.6 10.0-20.0 mcg/mL Shoulder Min 2 Views Left Reviewed date:02/11/2024 01:26:55 PM Interpretation: Performing Lab: Notes/Report: Shoulder Min 2 Views Left, 2 views Reason: pain COMPARISON: None. FINDINGS: No fracture, dislocation nor lytic or blastic lesion. Bones are generally osteopenic. No arthritic change of the glenohumeral joint. Normal AC joint and portions of the clavicle included on the exam. There is a 1 cm focus of calcification in the soft tissues directly superior to the greater tuberosity of the humeral head. IMPRESSION: Osteopenia. Calcific tendinitis. WSN: [id number] Ordering Physician: Allyson Fairchild Dictated By: Goodman BOWIE, Ace Lindquist Cervical Spine 3 Views or Le ss Reviewed date:02/11/2024 01:26:55 PM Interpretation: Performing Lab: Notes/Report: Cervical Spine 3 Views or Less Reason: pain COMPARISON: None. FINDINGS: There is poor visualization of the C6-C7 disc space and the C7-T1 vertebra due to the patient's overriding shoulders, this also despite obtaining a swimmer's projection. Given that limitation, there are no apparent bone lesions or fractures. Normal odontoid and C1/2 relationship. There is cervical straightening and mild curvature convex right. There is approximately 5 mm anterolisthesis of C3 on C4 with mild disc space narrowing and marginal osteophyte formation at this level. There is marked disc space narrowing and accompanying marginal osteophyte formation at C4-C5 and C5-C6 levels along with several millimeters retrolisthesis of C5 on C6. The C6-C7 disc space cannot be adequately evaluated. There is multilevel facet and uncovertebral joint arthropathy. Normal prevertebral soft tissues and clear lung apices. IMPRESSION: Multilevel cervical spondylosis including 5 mm anterolisthesis of C3 on C4. WSN: [id number] Ordering Physician: Allyson Fairchild Dictated By: Ace Alexandra MD Lumbar Spine 2 or 3 Views Reviewed date:02/11/2024 01:26:55 PM Interpretation: Performing Lab: Notes/Report: Lumbar Spine 2 or 3 Views Reason: pain COMPARISON: None. FINDINGS: No bone lesions or fractures. There is moderate to marked multilevel disc space narrowing and marginal osteophyte formation including some levels of vacuum disc. L1-L2 is the most narrowed disc space with the most prominent osteophytes and some irregularity of the opposing endplates. There is a mild thoracolumbar curve convex left. There our minor anterolistheses at L3-L4 and L4-L5, alignment elsewhere is satisfactory. There is lower facet arthropathy. No spondylolysis. Normal soft tissues. IMPRESSION: Advanced multilevel degenerative changes along with a thoracolumbar curve. No acute findings. WSN: [id number] Ordering Physician: Allyson Fairchild Dictated By: Ace Alexandra MD VANCOMYCIN, TROUGH Reviewed date:03/18/2024 07:03:25 AM Interpretation: Performing Lab: Notes/Report: Vancomycin Trough 18.1 10.0-20.0 mcg/mL C-REACTIVE PROTEIN Reviewed date:03/18/2024 07:03:25 AM Interpretation: Performing Lab: Notes/Report: C-Reactive Protein 11.30 <=0.50 mg/dL SEDIMENTATION RATE Reviewed date:03/18/2024 07:03:25 AM Interpretation: Performing Lab: Notes/Report: Sed Rate >130 0-30 mm/hr COMPLETE BLOOD COUNT Reviewed date:03/18/2024 07:03:25 AM Interpretation: Performing Lab: Notes/Report: WBC 7.3 4.8-10.8 K/mcL RBC 3.40 3.80-4.80 M/mcL Hemoglobin 9.5 11.5-16.0 g/dL Hematocrit 30.1 35.0-47.0 % MCV 87.5 79.0-98.0 FL MCH 27.6 27.0-32.0 pcg MCHC 31.6 32.0-37.0 g/dL RDW 14.9 11.0-15.0 % Platelets 360 130-400 K/mcL MPV 9.3 7.0-11.0 FL NRBC 0.0 <1.0 % NRBC Absolute 0.00 <0.10 K/mcL COMPREHENSIVE METABOLIC PANE L Reviewed date:03/18/2024 07:03:25 AM Interpretation: Performing Lab: Notes/Report: Sodium 133 133-145 mmol/L Potassium 4.7 3.5-5.5 mmol/L Chloride 102 96-110 mmol/L CO2 27 21-32 mmol/L Anion Gap 4 3-11 Glucose 96 70-100 mg/dL BUN 13 5-25 mg/dL Creatinine 0.54 0.50-1.10 mg/dL eGFR 96 >=60 mL/min/1.73m2 Calculation based on the?Chronic Kidney Disease Epidemiology Collaboration (CKD-EPI) equation refit?without adjustment for race. BUN/Creatinine Ratio 24.1 Calcium 9.5 8.5-10.5 mg/dL AST (SGOT) 17 10-42 unit/L ALT (SGPT) 17 10-60 unit/L Alkaline Phosphatase 107 42-121 unit/L Total Protein 6.9 6.0-8.0 g/dL Albumin 2.5 3.2-5.0 g/dL Total Bilirubin 0.3 0.0-1.4 mg/dL Comp. Metabolic Panel (14)-3 Reviewed date:05/09/2024 12:38:01 PM Interpretation: Performing Lab:[facility], [address], [place], Phone - [phone], Director - Quinten Notes/Report: Glucose 93 70-99 mg/dL BUN 11 8-27 mg/dL Creatinine 0.96 0.57-1.00 mg/dL eGFR 61 >59 mL/min/1.73 BUN/Creatinine Ratio 11 12-28 Sodium 140 134-144 mmol/L Potassium 5.5 3.5-5.2 mmol/L Chloride 101 96-106 mmol/L Carbon Dioxide, Total 22 20-29 mmol/L Calcium 10.2 8.7-10.3 mg/dL Verified by repeat analysis Protein, Total 8.0 6.0-8.5 g/dL Albumin 4.3 3.8-4.8 g/dL Globulin, Total 3.7 1.5-4.5 g/dL Bilirubin, Total 0.3 0.0-1.2 mg/dL Alkaline Phosphatase 134 44-121 IU/L AST (SGOT) 24 0-40 IU/L ALT (SGPT) 12 0-32 IU/L Albumin/Creatinine Ratio,Uri [id number] Reviewed date:05/09/2024 12:38:01 PM Interpretation: Performing Lab:[facility] [place], [address] [place] [address], Phone - [phone], [facility]Report: Creatinine, Urine 69.8 Not Estab. mg/dL Albumin, Urine 20.1 Not Estab. ug/mL Alb/Creat Ratio 29 0-29 mg/g creat Normal: 0 - 29 Moderately increased: 30 - 300 Severely increased: >300 C-Reactive Protein, Quant-00 [id number] Reviewed date:05/09/2024 12:38:01 PM Interpretation: Performing Lab:[facility] [place], [address] [place] [address], Phone - [phone], Director - Notes/Report: C-Reactive Protein, Quant 22 0-10 mg/L Request Problem TNP [facility] was unable to collect sufficient specimen to perform the following test(s), and is providing the patient with re-collection instructions. TEST: [id number] Sedimentation Rate-Westergren Sedimentation Rate-Westergre [id number] Reviewed date:05/09/2024 12:38:00 PM Interpretation: Performing Lab:[facility] [place], [address] [place] [address], Phone - [phone], Director - Quinten Notes/Report: Sedimentation Rate-Westergren TNP [facility] was unable to collect sufficient specimen to perform the following test(s), and is providing the patient with re-collection instructions. CBC With Differential/Platel et-[id number] Reviewed date:05/09/2024 12:38:00 PM Interpretation: Performing Lab:[facility] [place], [address] [place] [address], Phone - [phone], Director - MDJodry Notes/Report: WBC 10.3 3.4-10.8 x10E3/uL RBC 4.50 3.77-5.28 x10E6/uL Hemoglobin 12.3 11.1-15.9 g/dL Hematocrit 41.8 34.0-46.6 % MCV 93 79-97 fL MCH 27.3 26.6-33.0 pg MCHC 29.4 31.5-35.7 g/dL RDW 20.8 11.7-15.4 % Platelets 505 150-450 x10E3/uL Neutrophils 60 Not Estab. % Lymphs 26 Not Estab. % Monocytes 9 Not Estab. % Eos 4 Not Estab. % Basos 1 Not Estab. % Neutrophils (Absolute) 6.2 1.4-7.0 x10E3/uL Lymphs (Absolute) 2.7 0.7-3.1 x10E3/uL Monocytes(Absolute) 1.0 0.1-0.9 x10E3/uL Eos (Absolute) 0.4 0.0-0.4 x10E3/uL Baso (Absolute) 0.1 0.0-0.2 x10E3/uL Immature Granulocytes 0 Not Estab. % Immature Grans (Abs) 0.0 0.0-0.1 x10E3/uL Urinalysis, [id number] Reviewed date:05/09/2024 12:38:00 PM Interpretation: Performing Lab:[facility] [place], [address], [place], Phone - [phone], Director - Quinten Notes/Report: Specific Parker 1.012 1.005-1.030 pH 6.0 5.0-7.5 Urine-Color Yellow Yellow Appearance Clear Clear WBC Esterase 2+ Negative Protein Negative Negative/Trace Glucose Negative Negative Ketones Negative Negative Occult Blood Negative Negative Bilirubin Negative Negative Urobilinogen,Semi-Qn 0.2 0.2-1.0 mg/dL Nitrite, Urine Negative Negative Microscopic Examination See below: Micr oscopic was indicated and was performed. WBC 11-30 0 - 5 /hpf RBC 0-2 0 - 2 /hpf Epithelial Cells (non renal) 0-10 0 - 10 /hpf Casts None seen None seen /lpf Bacteria Many None seen/Few BASIC METABOLIC PANEL Reviewed date:03/13/2024 02:15:06 PM Interpretation: Performing Lab: Notes/Report: Sodium 135 133-145 mmol/L Potassium 4.7 3.5-5.5 mmol/L Chloride 103 96-110 mmol/L CO2 23 21-32 mmol/L Anion Gap 9 3-11 Glucose 86 70-100 mg/dL BUN 11 5-25 mg/dL Creatinine 0.46 0.50-1.10 mg/dL eGFR 99 >=60 mL/min/1.73m2 Calculation based on the Chronic Kidney Disease Epidemiology Collaboration (CKD-EPI) equation refit without adjustment for race. BUN/Creatinine Ratio 23.9 Calcium 8.9 8.5-10.5 mg/dL CT THORACIC SPINE WO CONTRAS T Reviewed date:09/09/2024 07:00:58 PM Interpretation: Performing Lab: Notes/Report: See Note [facility], a member of [employer] EXAM: CT THORACIC SPINE WO CONTRAST CLINICAL [...] loss of disc space height results in [id number] foraminal narrowing at T8-T9, worse on the right that is unchanged. Small chronic peripherally calcified disc protrusion at T5-T6 is unchanged. No significant central stenosis. No evidence of epidural disease with within the limitations of this study. IMPRESSION: Endplate sclerosis and partial ankylosis across the disc spaces at T8-T9 and T11-T12 compatible with healing spondylitis/discitis. No signs of new spinal infection. Kyphosis scoliosis and chronic spondylosis. Report reviewed and signed by : Dr. Ranjan Mauro MD on 09/09/2024 5:29 PM. Workstation Name - [id number] -------- FINAL REPORT -------- Dictated By: Ranjan Mauro Dictated Date: 09/09/2024 17:19 ET Assigned Physician: Ranjan Mauro Reviewed and Electronically Signed By: Ranjan Mauro Signed Date: 09/09/2024 17:29 ET Workstation ID: [id number] Transcribed By: Self Edit Transcribed Date: 09/09/2024 17:[address] ANGIO CHEST WO AND/OR W C ONTRAST Reviewed date:09/09/2024 07:00:58 PM Interpretation: Performing Lab: Notes/Report: See Note [facility], a member of [email or web address] This is a summary report. The complete report is available in the patient's medical record. If you cannot access the medical record, please contact the sending organization for a detailed fax or copy. EXAM: CT ANGIO CHEST WO AND/OR W [...] Hounsfield units. It was partially included in owqcq-pr-wsqn and had similar density on noncontrast images [...] There are no rim-enhancing paraspinal fluid collections. IMPRESSION: * No evidence [...] on 09/09/2024 2:28 PM. Workstation Name - [id number] -------- FINAL REPORT -------- Dictated By: Rakesh Ruiz Dictated Date: 09/09/2024 14:12 ET Assigned Physician: Rakesh Ruiz Reviewed and Electronically Signed By: Rakesh Ruiz Signed Date: 09/09/2024 14:28 ET Workstation ID: [id number] Transcribed By: Self Edit Transcribed Date: 09/09/2024 14:12 ET POCT CREATININE, BLOOD Reviewed date:09/09/2024 07:00:58 PM Interpretation: Performing Lab: Notes/Report: Creatinine POCT 1.0 0.5-1.0 mg/dL eGFR 54 XR CHEST 2 VIEWS Reviewed date:08/14/2024 01:06:17 PM Interpretation: Performing Lab: Notes/Report: See Note [facility], a member of [employer] PROCEDURE: PA and lateral radiographs of the chest. HISTORY: SHORTNESS OF BREATH. COMPARISON: Chest CT 06/13/2024. FINDINGS: Mildly elevated left hemidiaphragm with a linear band of scarring or atelectasis at the left base. Lungs otherwise clear. Atherosclerotic calcification of the aorta. Pleural spaces and pulmonary vasculature are normal. Mediastinal contours and heart size are normal. Bones appear demineralized. Degenerative changes of the spine. Mild levoscoliosis at the thoracolumbar junction. IMPRESSION: No acute findings. -------- FINAL REPORT -------- Dictated By: Lior Magallanes Dictated Date: 2024 08:22 ET Assigned Physician: Lior Magallanes Reviewed and Electronically Signed By: Lior Magallanes Signed Date: 2024 08:23 ET Workstation ID: [id number] Transcribed By: Self Edit Transcribed Date: 2024 08:22 ET VANCOMYCIN, TROUGH Reviewed date:07/29/2024 09:31:13 PM Interpretation: Performing Lab: Notes/Report: Vancomycin Trough 16.4 10.0-20.0 mcg/mL C-REACTIVE PROTEIN Reviewed date:07/29/2024 07:34:07 AM Interpretation: Performing Lab: Notes/Report: C-Reactive Protein <0.29 <=0.50 mg/dL COMPREHENSIVE METABOLIC PANE L Reviewed date:07/29/2024 07:34:07 AM Interpretation: Performing Lab: Notes/Report: Sodium 139 133-145 mmol/L Potassium 4.3 3.5-5.5 mmol/L Hemolysis pre sent Chloride 106 96-110 mmol/L CO2 23 21-32 mmol/L Anion Gap 10 3-11 Glucose 57 70-100 mg/dL BUN 13 5-25 mg/dL Creatinine 0.85 0.50-1.10 mg/dL eGFR 71 >=60 mL/min/1.73m2 Calculation based on the Chronic Kidney Disease Epidemiology Collaboration (CKD-EPI) equation refit without adjustment for race. BUN/Creatinine Ratio 15.3 Calcium 9.3 8.5-10.5 mg/dL AST (SGOT) 26 10-42 unit/L Hemolysis prese nt ALT (SGPT) 21 10-60 unit/L Alkaline Phosphatase 100 42-121 unit/L Total Protein 6.3 6.0-8.0 g/dL Albumin 3.1 3.2-5.0 g/dL Total Bilirubin 0.2 0.0-1.4 mg/dL VANCOMYCIN, TROUGH Reviewed date:07/13/2024 10:45:05 AM Interpretation: Performing Lab: Notes/Report: Vancomycin Trough 23.0 10.0-20.0 mcg/mL VANCOMYCIN, RANDOM Reviewed date:07/08/2024 11:09:37 AM Interpretation: Performing Lab: Notes/Report: Vancomycin Rm 19.6 C-REACTIVE PROTEIN Reviewed date:07/08/2024 11:09:37 AM Interpretation: Performing Lab: Notes/Report: C-Reactive Protein 3.61 <=0.50 mg/dL COMPREHENSIVE METABOLIC PANE L Reviewed date:07/08/2024 11:09:37 AM Interpretation: Performing Lab: Notes/Report: Sodium 138 133-145 mmol/L Potassium 4.0 3.5-5.5 mmol/L Chloride 100 96-110 mmol/L CO2 28 21-32 mmol/L Anion Gap 10 3-11 Glucose 84 70-100 mg/dL BUN 8 5-25 mg/dL Creatinine 1.03 0.50-1.10 mg/dL eGFR 56 >=60 mL/min/1.73m2 Calculation based on the Chronic Kidney Disease Epidemiology Collaboration (CKD-EPI) equation refit without adjustment for race. BUN/Creatinine Ratio 7.8 Calcium 9.5 8.5-10.5 mg/dL AST (SGOT) 24 10-42 unit/L ALT (SGPT) 14 10-60 unit/L Alkaline Phosphatase 110 42-121 unit/L Total Protein 6.8 6.0-8.0 g/dL Albumin 3.0 3.2-5.0 g/dL Total Bilirubin 0.3 0.0-1.4 mg/dL TYPE AND SCREEN Reviewed date:07/08/2024 04:28:14 PM Interpretation: Performing Lab: Notes/Report: ABO Group O Rh Type Positive Antibody Screen Negative ABO RH Reviewed date:07/08/2024 04:28:14 PM Interpretation: Performing Lab: Notes/Report: ABO Group O Rh Type Positive TYPE AND SCREEN Reviewed date:07/08/2024 04:28:14 PM Interpretation: Performing Lab: Notes/Report: ABO Group O Rh Type Positive Antibody Screen Negative COMPLETE BLOOD COUNT Reviewed date:04/08/2024 12:36:14 PM Interpretation: Performing Lab: Notes/Report: WBC 5.6 4.8-10.8 K/mcL RBC 3.20 3.80-4.80 M/mcL Hemoglobin 8.9 11.5-16.0 g/dL Hematocrit 29.3 35.0-47.0 % MCV 90.4 79.0-98.0 FL MCH 27.5 27.0-32.0 pcg MCHC 30.4 32.0-37.0 g/dL RDW 15.9 11.0-15.0 % Platelets 383 130-400 K/mcL MPV 9.4 7.0-11.0 FL NRBC 0.0 <1.0 % NRBC Absolute 0.00 <0.10 K/mcL COMPREHENSIVE METABOLIC PANE L Reviewed date:04/08/2024 12:36:14 PM Interpretation: Performing Lab: Notes/Report: Sodium 138 133-145 mmol/L Potassium 4.3 3.5-5.5 mmol/L Chloride 108 96-110 mmol/L CO2 26 21-32 mmol/L Anion Gap 4 3-11 Glucose 85 70-100 mg/dL BUN 17 5-25 mg/dL Creatinine 0.56 0.50-1.10 mg/dL eGFR 95 >=60 mL/min/1.73m2 Calculation based on the?Chronic Kidney Disease Epidemiology Collaboration (CKD-EPI) equation refit?without adjustment for race. BUN/Creatinine Ratio 30.4 Calcium 9.1 8.5-10.5 mg/dL AST (SGOT) 24 10-42 unit/L ALT (SGPT) 20 10-60 unit/L Alkaline Phosphatase 100 42-121 unit/L Total Protein 6.5 6.0-8.0 g/dL Albumin 2.7 3.2-5.0 g/dL Total Bilirubin 0.3 0.0-1.4 mg/dL C-REACTIVE PROTEIN Reviewed date:04/08/2024 12:36:14 PM Interpretation: Performing Lab: Notes/Report: C-Reactive Protein 2.32 <=0.50 mg/dL SEDIMENTATION RATE Reviewed date:04/08/2024 12:36:14 PM Interpretation: Performing Lab: Notes/Report: Sed Rate 83 0-30 mm/hr VANCOMYCIN, TROUGH Reviewed date:04/08/2024 12:36:14 PM Interpretation: Performing Lab: Notes/Report: Vancomycin Trough 15.1 10.0-20.0 mcg/mL CT Angio Chest Reviewed date:08/18/2024 04:24:17 PM Interpretation: Performing Lab: Notes/Report: A D D E N D U M as of: [id number] The impression above was relayed to Allyson Fairchild SENIOR APPLICATIONS ARCHITECT by Sulma Ordaz over the phone on 08/14/2024 at 8:19 PM. WSN: [id number] Ordering Physician: Allyson Fairchild Dictated By: Nemesio Nugent MD CT Angio Chest INDICATION: Reason: I26.99 R06.02 PT HAS ELEVATED D DIMER AND SOB; Clinical Question(s): Other: TECHNIQUE: Spiral CTA of the chest was performed after rapid IV contrast administration without cardiac gating, triggered by an DIONNA on the main pulmonary artery. Images are formatted in multiple planes using 2-D multiplanar and 3-D maximum intensity projection. 40 cc of Isovue 300 was administered intravenously. Weight-based protocol using automatic tube modulation was used to optimize exposure parameters. CTDIvol Body: 4.50 mGy, DLP Body: 297 mGy*cm. COMPARISONS: None. ANGIOGRAPHIC FINDINGS: No pulmonary embolism to the subsegmental level. Normal caliber pulmonary arteries. No acute aortic abnormality seen on this study performed without cardiac gating. NON-ANGIOGRAPHIC FINDINGS: [employer] view findings, lines and tubes: None. Trachea and airways: Patent without evidence of tracheal or endobronchial lesion. Lungs and pleura: Mild dependent atelectasis. No effusion or pneumothorax. Mediastinum and aparna: No mass or hematoma. No mediastinal or hilar lymphadenopathy. No esophageal abnormality. Normal thyroid. Heart: Heart is normal in size. No pericardial effusion. Mild coronary artery calcification. Chest wall soft tissues: No acute abnormality. Diaphragm: Intact. Upper abdomen: Hypoattenuating focus at the posterior margin of the right lobe of liver measuring at the upper limits of simple fluid attenuation (301:180), possibly a cyst. Intrinsically hyperdense left upper pole renal lesion Compatible with hemorrhagic or proteinaceous renal cyst. Splenic flexure diverticulosis is noted at the edge of the xijen-kp-lxqf. Bones: Multilevel mild degenerative changes, with focal more advanced degenerative changes centered at the intervertebral disc space of T8-T9, which appear chronic. At T11-T12, there is similar intervertebral disc space space abnormality with more acute/subacute appearing endplate irregularity and mild adjacent soft tissue stranding (602:61, 301:98). Chronic appearing deformity of the left posterior 10th rib, a portion of which appears to be surgically absent. IMPRESSION: 1. No evidence of pulmonary embolism. 2. Abnormal appearance of the intervertebral disc space at T11-T12, with surrounding stranding raising concern for developing discitis/osteomyelitis. Correlation with symptoms is recommended and dedicated MRI of the thoracic spine with and without contrast should be considered. 3. Colonic diverticulosis without acute diverticulitis. WSN: [id number] Ordering Physician: Allyson Fairchild Dictated By: Raffi BOWIE, Nemesio Leos CBC With Differential/Platel et-[id number] Reviewed date:06/03/2024 02:10:22 PM Interpretation: Performing Lab:[facility] [place], [address] [place] [address], [place], Phone - [phone], Director - Quinten Notes/Report: WBC 14.4 3.4-10.8 x10E3/uL RBC 4.26 3.77-5.28 x10E6/uL Hemoglobin 11.4 11.1-15.9 g/dL Hematocrit 37.2 34.0-46.6 % MCV 87 79-97 fL MCH 26.8 26.6-33.0 pg MCHC 30.6 31.5-35.7 g/dL RDW 15.7 11.7-15.4 % Platelets 812 150-450 x10E3/uL Neutrophils 68 Not Estab. % Lymphs 21 Not Estab. % Monocytes 8 Not Estab. % Eos 2 Not Estab. % Basos 0 Not Estab. % Neutrophils (Absolute) 9.8 1.4-7.0 x10E3/uL Lymphs (Absolute) 3.1 0.7-3.1 x10E3/uL Monocytes(Absolute) 1.1 0.1-0.9 x10E3/uL Eos (Absolute) 0.3 0.0-0.4 x10E3/uL Baso (Absolute) 0.1 0.0-0.2 x10E3/uL Immature Granulocytes 1 Not Estab. % Immature Grans (Abs) 0.1 0.0-0.1 x10E3/uL Comp. Metabolic Panel (14)-3 [id number] Reviewed date:06/03/2024 02:10:22 PM Interpretation: Performing Lab:[facility], [address] [facility], Phone - [phone], [facility] Notes/Report: Glucose 91 70-99 mg/dL BUN 19 8-27 mg/dL Creatinine 0.99 0.57-1.00 mg/dL eGFR 59 >59 mL/min/1.73 BUN/Creatinine Ratio 19 12-28 Sodium 137 134-144 mmol/L Potassium 5.2 3.5-5.2 mmol/L Chloride 98 96-106 mmol/L Carbon Dioxide, Total 22 20-29 mmol/L Calcium 9.7 8.7-10.3 mg/dL Protein, Total 7.1 6.0-8.5 g/dL Albumin 3.8 3.8-4.8 g/dL Globulin, Total 3.3 1.5-4.5 g/dL Bilirubin, Total <0.2 0.0-1.2 mg/dL Alkaline Phosphatase 160 44-121 IU/L AST (SGOT) 26 0-40 IU/L ALT (SGPT) 16 0-32 IU/L Phosphatidylethanol (PEth)-7 43500 Reviewed date:05/25/2024 02:54:15 PM Interpretation: Performing Lab:[facility], [address] [facility], Phone - [phone], [facility] Notes/Report: PHOSPHATIDYLETHANOL Positive Phosphatidylethanol (PEth) 101 Analyzed compound: PEth 16:0/18:1. 8-elzcphyji-8-oleoyl-sn-g tocgxf-7-mhdazndbeoscvp. Analysis performed by Liquid Chromatography with Tandem Mass Spectrometry (LC/MS/MS). Detection limit: 20 ng/mL PEth levels in excess of 20 ng/mL are considered evidence of moderate to heavy ethanol consumption. However, the Center for Substance Abuse Treatment (CSAT) advises caution in interpretation and use of biomarkers alone to assess alcohol use. Results should be interpreted in the context of all available clinical and behavioral information. Reference: Substance Abuse and Mental Health Services Administration (2012). The Role of Biomarkers in the Treatment of Alcohol Use Disorders , 2012 Revision. Advisory, Volume 11, Issue 2. This test was developed and its performance characteristics determined by [employer]. It has not been cleared or approved by the Food and Drug Administration. Comp. Metabolic Panel (14)-3 96573 Reviewed date:05/25/2024 02:54:15 PM Interpretation: Performing Lab:[facility] [place], [address] [facility], Phone - [phone], [facility] Notes/Report: Glucose 81 70-99 mg/dL BUN 21 8-27 mg/dL Creatinine 1.12 0.57-1.00 mg/dL eGFR 51 >59 mL/min/1.73 BUN/Creatinine Ratio 19 12-28 Sodium 137 134-144 mmol/L Potassium 4.6 3.5-5.2 mmol/L Chloride 98 96-106 mmol/L Carbon Dioxide, Total 19 20-29 mmol/L Calcium 9.0 8.7-10.3 mg/dL Protein, Total 7.0 6.0-8.5 g/dL Albumin 4.0 3.8-4.8 g/dL Globulin, Total 3.0 1.5-4.5 g/dL Bilirubin, Total 0.2 0.0-1.2 mg/dL Alkaline Phosphatase 145 44-121 IU/L AST (SGOT) 28 0-40 IU/L ALT (SGPT) 22 0-32 IU/L CBC With Differential/Platel et-[id number] Reviewed date:05/25/2024 02:54:15 PM Interpretation: Performing Lab:[facility] [place], [address] [facility], Phone - [phone], [facility] Notes/Report: WBC 13.7 3.4-10.8 x10E3/uL RBC 4.30 3.77-5.28 x10E6/uL Hemoglobin 11.8 11.1-15.9 g/dL Hematocrit 37.9 34.0-46.6 % MCV 88 79-97 fL MCH 27.4 26.6-33.0 pg MCHC 31.1 31.5-35.7 g/dL RDW 16.9 11.7-15.4 % Platelets 355 150-450 x10E3/uL Neutrophils 67 Not Estab. % Lymphs 20 Not Estab. % Monocytes 11 Not Estab. % Eos 2 Not Estab. % Basos 0 Not Estab. % Neutrophils (Absolute) 9.2 1.4-7.0 x10E3/uL Lymphs (Absolute) 2.7 0.7-3.1 x10E3/uL Monocytes(Absolute) 1.4 0.1-0.9 x10E3/uL Eos (Absolute) 0.2 0.0-0.4 x10E3/uL Baso (Absolute) 0.0 0.0-0.2 x10E3/uL Immature Granulocytes 0 Not Estab. % Immature Grans (Abs) 0.0 0.0-0.1 x10E3/uL Urinalysis, Complete-[id number] Reviewed date:05/25/2024 02:54:15 PM Interpretation: Performing Lab:[facility] [place], [address], [place], Phone - [phone], Director - Quinten Notes/Report: Specific Parker 1.021 1.005-1.030 pH 6.5 5.0-7.5 Urine-Color Yellow Yellow Appearance Cloudy Clear WBC Esterase 3+ Negative Protein 1+ Negative/Trace Glucose Negative Negative Ketones Trace Negative Occult Blood Negative Negative Bilirubin Negative Negative Urobilinogen,Semi-Qn 0.2 0.2-1.0 mg/dL Nitrite, Urine Positive Negative Microscopic Examination See below: Micr oscopic was indicated and was performed. WBC 0-5 0 - 5 /hpf RBC 0-2 0 - 2 /hpf Epithelial Cells (non renal) 0-10 0 - 10 /hpf Casts None seen None seen /lpf Crystals Present N/A Crystal Type Calcium Oxalate N/A Bacteria Many None seen/Few MAMMOGRAM, SCREENING Reviewed date:11/18/2024 03:49:28 PM Interpretation: Performing Lab: Notes/Report: Reason For Referral Reason faxed Diagnosis 1 Calcific tendinitis of left shoulder (M75.32) Referral Organization [facility] Referring Provider First Name Allyson Referring Provider Last Name Devorah Referring Provider Speciality Nurse Prac titioner Referred Provider REY, Ortho Referred Provider Specialty [facility]opedic S urgery [facility] 05:33[facility]16 PM >Fax[facility] with [facility] referral form[facility] 02:15:17 PM >Patient was admitted to hospital for over a month after referral was place. Closing referral. Referral Priority Routine Reason Multiple areas of de generative changes in cervical and lumbar spine as well as osteophyte formation and spondylolisthesis faxed Diagnosis 1 Spondylolisthesis, c ervical region (M43.12) Referral Organization [facility] Referring Provider First Name Allyson Referring Provider Last Name Devorah Referring Provider Speciality Nurse Larisa louie Referred Provider Davy Hillman Referred Provider Specialty Pain Medicin e General Notes [facility], [facility] 08/2024 02:45:09 PM >faxed, [facility] 09/09/2024 02:15:17 PM >Patient was admitted to hospital for over a month after referral was place. Closing referral. Referral Priority Routine Reason [facility] faxed Diagnosis 1 Bilateral primary os teoarthritis of knee (M17.0) Referral Organization [facility] Referring Provider First Name Allyson Referring Provider Last Name Devorah Referring Provider Speciality Nurse Larisa louie Referred Provider Papa Veliz Referred Provider Specialty Orthopedic S urgery General Notes [facility] 05/06 05:28:24 PM >faxed, [facility] 09/09/2024 02:32:19 PM >Patient was admitted to hospital and rehab after referral was placed. Will cancel referral. Referral Priority Routine Diagnosis 1 Supraventricular tac hycardia, unspecified (I47.10) Referral Organization [facility] Referring Provider First Name Allyson Referring Provider Last Name Devorah Referring Provider Speciality Nurse Larisa louie Referred Provider Avila Salazar Referred Provider Specialty Cardiology General Notes [facility] 08/2024 04:34:18 PM >faxed Referral Priority Routine Reason Due for screening co lonoscopy Diagnosis 1 Encounter for screen ing for malignant neoplasm of colon (Z12.11) Referral Organization [facility] Referring Provider First Name Allyson Referring Provider Last Name Devorah Referring Provider Speciality Nurse Larisa louie Referred Provider Kathrine Cedeño Referred Provider Specialty Gastroentero logy General Notes [facility], [place] 09/2024 02:28:17 PM >faxed Referral Priority Routine Reason [facility] referral needed for SVT Diagnosis 1 Supraventricular tac hycardia, unspecified (I47.10) Referral Organization [facility] Referring Provider First Name Allyson Referring Provider Last Name Devorah Referring Provider Speciality Nurse Larisa louie Referred Provider [facility] Referred Provider Specialty Cardiology General Notes [facility] 09/2024 04:22:48 PM >faxed Referral Priority Routine Medications Medication SIG (Take, Route, Frequency, Duration) Notes Start Date End Date Status DULoxetine HCl 30 MG TAKE 1 CAPSULE BY MOUTH EVERY DAY; Duration: 90 Active Vitamin D 50 MCG (1999 UT) 1 tablet Oral ly Once a day; Duration: 30 day(s) Active Ativan 0.5 MG 1 tablet at bedtime as needed Orally Once a day; Duration: 7 days 08/11/2024 Active Protonix 40 MG 1 tablet 1/2 to 1 ho ur before morning meal Orally Once a day Not-Taking Tylenol 325 MG 1 tablet as needed Orally every 6 hrs Active Methocarbamol 500 MG TAKE 1 TABLET BY MO UTH EVERY 8 HOURS IF NEEDED FOR MUSCLE SPASMS. Oral; Duration: 10 Days Active Colace 100 MG 1 capsule as needed Orally Once a day Not-Taking Super B Complex Acti ve Doxycycline Hyclate 100 MG 1 tablet Oral ly twice a day Active Ondansetron HCl 4 MG 1 tablet Orally Onc e a day Active Metoprolol Succinate ER 50 MG 1 tablet Orally twice a day; Duration: 90 days Active Gabapentin 300 MG 1 capsule as needed for neck and back pain Orally Once a day; Duration: 14 days 02/07/2024 Active Immunizations Vaccine Route Administration Date Status Comme nts Influenza, seasonal, injectable, 6-35 months Unknown 11/20/2023 Administered Influenza (Fluad) Unknown 12/06/2021 Administered ERBGK-66-Pobrmj Vaccine Unknown 05/03/2021 Administered TBDET-01-Ckxdlvh Vaccine Unknown 08/27/2020 Administere d ILKOY-51-Zpgrzlo Vaccine Unknown 09/24/2020 Administere d *Tdap Unknown 05/08/2016 Administered *PREVNAR 20 Unknown 04/02/2023 Refused *PREVNAR 20 IM Intramuscular 06/18/2023 Administered Social History AUDIT-C (Standard) Question Answer Notes Did you have a drink contain ing alcohol in the past year? Yes How often did you have six o r more drinks on one occasion in the past year? 2 to 3 times per week (3 points) How many drinks did you have on a typical day when you were drinking in the past year? 5 or 6 drinks (2 points) How often did you have a dri nk containing alcohol in the past year? Daily or almost daily (4 points) Points 9 Interpretation Positive Problems Problem Type SNOMED Code ICD Code Onset Dates Problem Status W/U Status Risk Notes Problem Chronic anemia (981117088) Anemia in other chronic diseases classified elsewhere (D63.8) Active confirmed Problem Leukocytosis (960417940) Elevated white blood cell count, unspecified (D72.829) Active confirmed Problem Vitamin D deficiency (90086190) Vitamin D deficiency, unspecified (E55.9) Active confirmed Problem Mixed hyperlipidemia (059579417) Mixed hyperlipidemia (E78.2) Active confirmed Problem Alcohol abuse (31992663) Alcohol abuse, uncomplicated (F10.10) Active confirmed Problem Alcohol induced anxiety disorder (49112258) 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) Active confirmed Problem Moderate major depression, single episode (31346621) Major depressive disorder, single episode, moderate (F32.1) Active confirmed Problem Generalized anxiety disorder (49410732) Generalized anxiety disorder (F41.1) Active confirmed Problem Anxiety disorder (052266729) Anxiety disorder, unspecified (F41.9) Active confirmed Problem Chronic kidney disease due to hypertension (332907204004757) Hypertensive chronic kidney disease with stage 1 through stage 4 chronic kidney disease, or unspecified chronic kidney disease (I12.9) Active confirmed Problem WALLACE - Nonalcoholic steatohepatitis (436170993) Nonalcoholic steatohepatitis (WALLACE) (K75.81) Active confirmed Problem Osteoarthritis of knee (310424616) Bilateral primary osteoarthritis of knee (M17.0) Active confirmed Problem Osteoarthritis of knee (448516861) Unilateral primary osteoarthritis, left knee (M17.12) Active confirmed Problem Osteoarthritis (923330862) Unspecified osteoarthritis, unspecified site (M19.90) Active confirmed Problem Acquired spondylolisthesis (164797532) Spondylolisthesis , cervical region (M43.12) Active confirmed Problem Osteomyelitis of vertebra, thoracic region (M46.24) Active confirmed Problem Discitis, unspecified, thoracolumbar region (M46.45) Active confirmed Problem Cervicalgia (42610993) Cervicalgia (M54.2) Active confirmed Problem Chronic kidney disease stage 2 (443158908) Chronic kidney disease, stage 2 (mild) (N18.2) Active confirmed Problem Impaired fasting glucose (576093597) Impaired fasting glucose (R73.01) Active confirmed Problem History of methicillin resistant Staphylococcus aureus infection (148607517) Personal history of Methicillin resistant Staphylococcus aureus infection (Z86.14) Active confirmed Problem Asymptomatic microscopic hematuria (03974829173717868) Asymptomatic microscopic hematuria (R31.21) Active confirmed Problem Elevation of levels of liver transaminase levels (R74.01) Active confirmed Problem Paraspinal abscess (CMS/HCC V24, 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 Active confirmed Problem Discitis of thoracic region (184710490) Discitis thoracic region (M46.44) 025 Active confirmed Problem Alcohol dependence (76637856) Alcohol dependence, uncomplicated (F10.20) Problem resolved confirmed Problem Essential hypertension (82479275) Essential (primary) hypertension (I10) Problem resolved confirmed Problem Nondependent alcohol abuse in remission (272252361) Alcohol abuse, in remission (F10.11) Problem resolved confirmed Vital Signs Heart Rate 75 /min 10/13/2024 Temperature 96.5 degrees Fahrenheit 10/13/2024 Blood pressure diastolic 66 mm Hg 10/13/2024 Oximetry 96 % 10/13/2024 Height 66.5 in 10/13/2024 Blood pressure systolic 116 mm Hg 10/13/2024 Weight 153 lbs 10/13/2024 BMI 24.32 kg/m2 10/13/2024 Procedures Procedure Date Ordered Date Performed Result Body Sit e HOLTER MONITOR, 7 DAYS, INTERPRETATION 09/11/2024 N/A HOLTER MONITOR, 7 DAYS, APPLICATION 2024 N/A HOLTER MONITOR, 7 DAYS, APPLICATION 08/11/2024 N/A Encounters Encounter Location Date Provider Diagnosis Talita Mills MD [address] [id number] 12/27/2023 Allyson Mills MD [address] [id number] 02/07/2024 Allyson Fairchild Hypertensive chronic kidney disease with stage 1 through stage 4 chronic kidney disease, or unspecified chronic kidney disease I12.9 ; Chronic kidney disease, stage 2 (mild) N18.2 ; Major depressive disorder, single episode, moderate F32.1 ; Generalized anxiety disorder F41.1 ; 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 ; Nonalcoholic steatohepatitis (WALLACE) K75.81 ; Low back pain, unspecified M54.50 ; Pain in left shoulder M25.512 ; Cellulitis of left upper limb L03.114 and Cervicalgia M54.2 Talita Mills MD [address] [id number] 02/18/2024 Allyson Fairchild Talita Mills MD [address] [id number] 04/28/2024 Allyson Fairchild Hypertensive chronic kidney disease with stage 1 through stage 4 chronic kidney disease, or unspecified chronic kidney disease I12.9 ; Chronic kidney disease, stage 2 (mild) N18.2 ; Major depressive disorder, single episode, moderate F32.1 ; Generalized anxiety disorder F41.1 ; Anemia in other chronic diseases classified elsewhere D63.8 ; Personal history of other diseases of the nervous system and sense organs Z86.69 and Muscle spasm of back M62.830 Talita Mills MD [address] [id number] 05/19/2024 Allyson Fairchild Hypertensive chronic kidney disease with stage 1 through stage 4 chronic kidney disease, or unspecified chronic kidney disease I12.9 ; Chronic kidney disease, stage 2 (mild) N18.2 ; Major depressive disorder, single episode, moderate F32.1 ; Generalized anxiety disorder F41.1 ; Anemia in other chronic diseases classified elsewhere D63.8 ; 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 and Bilateral primary osteoarthritis of knee M17.0 Talita Mills MD [address] [id number] 08/11/2024 Allyson Fairchild Paraspinal abscess (CMS/HCC V24, 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 ; Discitis thoracic region M46.44 ; Personal history of Methicillin resistant Staphylococcus aureus infection Z86.14 ; Hypertensive chronic kidney disease with stage 1 through stage 4 chronic kidney disease, or unspecified chronic kidney disease I12.9 ; Chronic kidney disease, stage 2 (mild) N18.2 ; Major depressive disorder, single episode, moderate F32.1 ; Generalized anxiety disorder F41.1 ; Anemia in other chronic diseases classified elsewhere D63.8 ; 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 ; Shortness of breath R06.02 ; Palpitations R00.2 and Acute upper respiratory infection, unspecified J06.9 Talita Mills MD [address] [id number] 2024 Talita Mills Palpitations R00.2 Talita Mills MD [address] [id number] 08/18/2024 Allyson Fairchild Paraspinal abscess (CMS/HCC V24, 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 ; Discitis thoracic region M46.44 ; Personal history of Methicillin resistant Staphylococcus aureus infection Z86.14 ; Hypertensive chronic kidney disease with stage 1 through stage 4 chronic kidney disease, or unspecified chronic kidney disease I12.9 ; Chronic kidney disease, stage 2 (mild) N18.2 ; Major depressive disorder, single episode, moderate F32.1 ; 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 and Shortness of breath R06.02 Talita Mills MD [address] [id number] 09/11/2024 Allyson Fairchild Paraspinal abscess (CMS/HCC V24, 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 ; Discitis thoracic region M46.44 ; Personal history of Methicillin resistant Staphylococcus aureus infection Z86.14 ; Hypertensive chronic kidney disease with stage 1 through stage 4 chronic kidney disease, or unspecified chronic kidney disease I12.9 ; Chronic kidney disease, stage 2 (mild) N18.2 ; Major depressive disorder, single episode, moderate F32.1 ; 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 ; Shortness of breath R06.02 and Supraventricular tachycardia, unspecified I47.10 Talita Mills MD [address] [id number] 10/13/2024 Allyson Fairchild Encounter for genera l adult medical examination without abnormal findings Z00.00 ; Mixed hyperlipidemia E78.2 ; Paraspinal abscess (CMS/HCC V24, 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 ; Discitis thoracic region M46.44 ; Personal history of Methicillin resistant Staphylococcus aureus infection Z86.14 ; Hypertensive chronic kidney disease with stage 1 through stage 4 chronic kidney disease, or unspecified chronic kidney disease I12.9 ; Chronic kidney disease, stage 2 (mild) N18.2 ; Major depressive disorder, single episode, moderate F32.1 ; 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 ; Shortness of breath R06.02 ; Supraventricular tachycardia, unspecified I47.10 ; Impaired fasting glucose R73.01 ; Asymptomatic microscopic hematuria R31.21 ; Elevation of levels of liver transaminase levels R74.01 ; Vitamin D deficiency, unspecified E55.9 ; Encounter for screening for malignant neoplasm of colon Z12.11 ; Encounter for screening mammogram for malignant neoplasm of breast Z12.31 ; Encounter for screening for osteoporosis Z13.820 ; Asymptomatic menopausal state Z78.0 ; Encounter for screening for cardiovascular disorders Z13.6 ; Encounter for immunization Z23 ; Encounter for antibody response examination Z01.84 ; Encounter for screening for other viral diseases Z11.59 and Encounter for screening examination for other mental health and behavioral disorders Z13.39 Talita Mills MD [address] [id number] 01/01/2024 Allyson Mills MD [address] [id number] 02/12/2024 Allyson Fairchild Elevated white blood cell count, unspecified D72.829 ; Calcific tendinitis of left shoulder M75.32 and Spondylolisthesis, cervical region M43.12 Talita Mills MD [address] [id number] 02/18/2024 Allyson Mills MD [address] [id number] 02/19/2024 Allyson Mills MD [address] [id number] 02/22/2024 Allyson Mills MD [address] [id number] 04/29/2024 Allyson Mills MD [address] [id number] 05/05/2024 Allyson Mills MD [address] [id number] 05/06/2024 Allyson Fairchild Cervicalgia M54.2 Talita Mills MD [address] [place] [id number] 05/09/2024 Allyson Fairchild Talita Mills MD [address] [place] [address] [id number] 05/14/2024 Allyson Fairchild Talita Mills [facility] [address] [place] [address] [place] [address] [id number] 05/14/2024 Allyson Fairchild Talita Mills MD [address] [place] [address] [id number] 05/19/2024 Allyson Fairchild Talita Mills MD [address] [place] [address] [id number] 05/20/2024 Allyson Fairchild Talita Mills [facility] [address] [place] [address] [place] [address] [id number] 05/25/2024 Allyson Fairchild Elevated white blood cell count, unspecified D72.829 Talita Mills MD [address] [id number] 05/29/2024 Allyson Fairchild Talita Mills MD [address] [id number] 06/03/2024 Allyson Fairchild Elevated white blood cell count, unspecified D72.829 and Thrombocytosis, unspecified D75.839 Talita Mills MD [address] [id number] 06/09/2024 Allyson Fairchild Cervicalgia M54.2 Talita Mills MD [address] [id number] 06/16/2024 Allyson Fairchild Talita Mills MD [address] [id number] 06/18/2024 Allyson Fairchild Talita Mills MD [address] [id number] 2024 Allyson Fairchild Talita Mills [facility] [address] [place] [address] [id number] 2024 Allyson Fairchild Talita Mills [facility] [address] [place] [address] [id number] 08/14/2024 Allyson Fairchild Other pulmonary embo lism without acute cor pulmonale I26.99 Talita Mills [facility] [address] [place] [address] [id number] 08/15/2024 Allyson Fairchild Talita Mills MD [address] [id number] 08/18/2024 Allysonanastasiya Fairchild Talita Mills MD [address] [id number] 08/19/2024 Allyson Fairchild Talita Mills MD [address] [id number] 09/02/2024 Allyson Devorah Mills MD [address] [id number] 09/18/2024 Allyson Fairchild Cervicalgia M54.2 Talita Mills MD [address] [id number] 10/13/2024 Allyson Fairchild Cervicalgia M54.2 Talita Mills MD [address] [id number] 10/31/2024 Allyson Fairchild Cervicalgia M54.2 Talita Mills MD [address] [id number] 11/27/2024 Allyson Fairchild Cervicalgia M54.2 Assessments Encounter Date Diagnosis (ICD Code) Assessment Notes Treatment Notes Treatment Clinical Notes Section Notes 02/07/2024 Hypertensive chronic kidney disease with stage 1 through stage 4 chronic kidney disease, or unspecified chronic kidney disease (ICD-10 - I12.9) Blood pressure improved since last visit. Patient to remain on current medication regimen and will obtain updated lab work at this time 02/07/2024 Chronic kidney disease, stage 2 (mild) (ICD-10 - N18.2) Previous GFR stable at 72. Will obtain updated labs 02/12/2024 Elevated white blood cell count, unspecified (ICD-10 - D72.829) 02/12/2024 Calcific tendinitis of left shoulder (ICD-10 - M75.32) 04/28/2024 Hypertensive chronic kidney disease with stage 1 through stage 4 chronic kidney disease, or unspecified chronic kidney disease (ICD-10 - I12.9) Blood pressure stable during today's visit. Patient states she discontinued her amlodipine Sunday as she was noticing low blood pressure readings at home. Would like patient to remain off of her blood pressure medication at this time with close follow-up in the office to determine if blood pressure management is warranted at this time. Patient does not have any symptoms of concern such as dizziness, chest pain, or lightheadedness but would not want her to restart consistent use of amlodipine and cause hypotension. Will also obtain updated lab work including a microalbumin level and GFR level given her hypertension history 04/28/2024 Chronic kidney disease, stage 2 (mild) (ICD-10 - N18.2) Previous GFR stable at 72. Will obtain updated labs at this time 05/06/2024 Cervicalgia (ICD-10 - M54.2) 05/25/2024 Elevated white blood cell count, unspecified (ICD-10 - D72.829) 06/03/2024 Elevated white blood cell count, unspecified (ICD-10 - D72.829) 06/03/2024 Thrombocytosis, unspecified (ICD-10 - D75.839) 06/09/2024 Cervicalgia (ICD-10 - M54.2) 05/19/2024 Hypertensive chronic kidney disease with stage 1 through stage 4 chronic kidney disease, or unspecified chronic kidney disease (ICD-10 - I12.9) Blood pressure remained stable during today's visit. Would like patient to remain off of her previously prescribed hypertensive medication at this time. Suspect that patient's previous excessive alcohol use may have been an irritant to her blood pressure and cause much of her hypertension. Would like to continue to monitor patient's blood pressure readings to determine if she requires restarting any hypertensive medications. Patient is scheduled for follow-up visit in July and we will reassess blood pressure at that time to determine if medications are warranted 08/11/2024 Paraspinal abscess ([facility] V24, [facility] V28) (ICD-10 - M46.20) Reviewed with patient her recent hospital admission and rehab admission status post paraspinal abscess surgery. Patient completed a course of 6 weeks of vancomycin per hospital discharge notes. Will obtain lab work to ensure white blood cell count and inflammatory markers are within normal range status post treatment for this abscess. 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 Patient did complete paraspinal abscess removal surgery as well as 6 weeks of vancomycin IV therapy. Patient remains on doxycycline and will be seeing the infectious disease doctor at [place] tomorrow to determine if continued antibiotic treatment is warranted given her recurrent paraspinal abscesses since 2024 Palpitations (ICD-10 - R00.2) Holter placed CAM ID [id number] 08/14/2024 Other pulmonary embolism without acute cor pulmonale (ICD-10 - I26.99) 08/18/2024 Paraspinal abscess ([facility] V24, [facility] V28) (ICD-10 - M46.20) Patient with a recent hospitalization and rehab placement status post paraspinal abscess surgery. Patient did complete a 6-week course of vancomycin and was evaluated by infectious disease who placed patient on doxycycline for a minimum of 1 year. Patient to follow-up with ID specialist as well as our office should she have any recurrent back pain. Also discussed with patient the findings of continued discitis noted to T11 and T12 on CT angiogram. Discussed the importance of being compliant with her doxycycline to ensure this infection does not spread or require admission for IV antibiotics 09/11/2024 Paraspinal abscess ([facility] V24, [facility] V28) (ICD-10 - M46.20) Patient with a recent hospitalization and rehab placement status post paraspinal abscess surgery. Patient did complete a 6-week course of vancomycin and was evaluated by infectious disease who placed patient on doxycycline for a minimum of 1 year. She recently underwent repeat spine imaging which revealed healed spinal disc infection. Patient to follow-up with ID specialist as well as our office should she have any recurrent back pain and reviewed the importance of being compliant with her doxycycline to ensure this infection does no return 09/11/2024 Discitis thoracic region (ICD-10 - M46.44) See plan above 09/18/2024 Cervicalgia (ICD-10 - M54.2) 10/13/2024 Cervicalgia (ICD-10 - M54.2) 10/13/2024 Mixed hyperlipidemia (ICD-10 - E78.2) Will check level to verify adequate control 10/13/2024 Encounter for general adult medical examination without abnormal findings (ICD-10 - Z00.00) General healthcare up-to-date. Will obtain updated routine labs. Healthcare proxy and MOLST form package given for review and completion. Plan will be for AWV in 1 year 10/31/2024 Cervicalgia (ICD-10 - M54.2) 11/27/2024 Cervicalgia (ICD-10 - M54.2) 10/13/2024 Paraspinal abscess ([facility] V24, [facility] V28) (ICD-10 - M46.20) Patient with a recent hospitalization and rehab placement status post paraspinal abscess surgery. Patient did complete a 6-week course of vancomycin and was evaluated by infectious disease who placed patient on doxycycline for a minimum of 1 year. Recent spine imaging revealed healed spinal disc infection. Patient to follow-up with ID specialist as well as our office should she have any recurrent back pain and reviewed the importance of being compliant with her doxycycline to ensure this infection does no return. Patient agreeable with this plan 09/11/2024 Personal history of Methicillin resistant Staphylococcus aureus infection (ICD-10 - Z86.14) Patient with underlying history of MRSA and recent hospital and rehab admission due to discitis and paraspinal abscess. She remains on doxycycline for minimum of 1 year. Patient to follow-up with infectious disease provider as scheduled 08/18/2024 Discitis thoracic region (ICD-10 - M46.44) See plan above 05/19/2024 Chronic kidney disease, stage 2 (mild) (ICD-10 - N18.2) Previous GFR stable at 72. Will obtain updated labs at this time 08/11/2024 Personal history of Methicillin resistant Staphylococcus aureus infection (ICD-10 - Z86.14) See plan above.Patient is seeing the infectious disease provider tomorrow at [place] given recurrent paraspinal abscess history and to determine length of treatment with oral doxycycline 04/28/2024 Major depressive disorder, single episode, moderate (ICD-10 - F32.1) Patient was previously treated for underlying depressive disorder with Celexa. When patient was admitted in the hospital she was switched to duloxetine which she states has helped her underlying depressive symptoms as well as manage her pain. Patient to remain on current medication regimen and she is aware to follow-up should she feel as though her mental health is not well-managed on current medication regimen 02/12/2024 Spondylolisthesis, cervical region (ICD-10 - M43.12) 02/07/2024 Major depressive disorder, single episode, moderate (ICD-10 - F32.1) Patient admits to increased depressive symptoms despite taking Celexa. She states she may be interested in switching to a different medication for depression but would like to wait until she further manages her alcoholism as well as her back and neck pain. Discussed with patient that we could transition her to Prozac for additional support and we will plan to continue discussing this at follow-up visits with patient. In the meantime, patient to remain on Celexa for support depressive symptoms 02/07/2024 Generalized anxiety disorder (ICD-10 - F41.1) Stable at present time and patient to continue taking propranolol daily recently Patient to follow-up should she feel as though this medication is not helping manage her underlying anxiety symptoms 04/28/2024 Generalized anxiety disorder (ICD-10 - F41.1) Stable at present time and patient to continue taking propranolol daily. Patient to follow-up should she feel as though this medication is not helping manage her underlying anxiety symptoms 05/19/2024 Major depressive disorder, single episode, moderate (ICD-10 - F32.1) Patient continues to take her duloxetine daily and states she is uncertain if her mental health and depressive symptoms have improved. Patient states she is feeling better and would like to wait a little longer to see if she would like further management of any depressive symptoms that are not well-managed on her current medication regimen. Patient's daughter did share that patient is drinking again and will obtain lab work including a Peth level to assess this. If patient is consuming increased levels of alcohol this may be an irritant and cause some increase in anxiety and depressive symptoms. Depending on lab work, patient may benefit from further assistance in managing her alcohol use as well as her mental health needs 08/11/2024 Hypertensive chronic kidney disease with stage 1 through stage 4 chronic kidney disease, or unspecified chronic kidney disease (ICD-10 - I12.9) Blood pressure stable during today's visit. Suspect that elevated blood pressure readings in the past were related to excessive alcohol use. Will continue to monitor blood pressure readings at follow-up appointments 08/18/2024 Personal history of Methicillin resistant Staphylococcus aureus infection (ICD-10 - Z86.14) Patient with underlying history of MRSA and recent hospital and rehab admission due to discitis and paraspinal abscess and receiving 6 weeks of IV antibiotics. She was recently evaluated by the infectious disease specialist who placed patient on doxycycline for minimum of 1 year. Patient to follow-up with infectious disease provider as scheduled 09/11/2024 Hypertensive chronic kidney disease with stage 1 through stage 4 chronic kidney disease, or unspecified chronic kidney disease (ICD-10 - I12.9) Blood pressure stable during today's visit. 10/13/2024 Discitis thoracic region (ICD-10 - M46.44) See plan above 10/13/2024 Personal history of Methicillin resistant Staphylococcus aureus infection (ICD-10 - Z86.14) Patient with underlying history of MRSA and recent hospital and rehab admission due to discitis and paraspinal abscess. She remains on doxycycline for minimum of 1 year. Patient to follow-up with infectious disease provider as scheduled 09/11/2024 Chronic kidney disease, stage 2 (mild) (ICD-10 - N18.2) Previous GFR noted to be stable in the 70s 08/18/2024 Hypertensive chronic kidney disease with stage 1 through stage 4 chronic kidney disease, or unspecified chronic kidney disease (ICD-10 - I12.9) Blood pressure stable during today's visit. 08/11/2024 Chronic kidney disease, stage 2 (mild) (ICD-10 - N18.2) Previous GFR noted to be stable in the 70s. Will obtain an updated GFR level at this time 05/19/2024 Generalized anxiety disorder (ICD-10 - F41.1) See plan above. Patient to continue taking propranolol daily as needed for any anxiety 04/28/2024 Anemia in other chronic diseases classified elsewhere (ICD-10 - D63.8) Reviewed with patient her recent lengthy hospital stay as well as [facility] rehab placement status post spinal abscess. Discussed with patient her low red blood cells as well as lower hemoglobin and hematocrit levels during her hospital stay. Levels are starting to trend upward. Would like to continue to monitor to ensure patient does not need any additional treatments/medicat ions to further manage these findings 02/07/2024 Alcohol abuse with alcohol-induced anxiety disorder (ICD-10 - F10.180) Patient was recently admitted to [facility] due to alcohol intoxication. She was admitted due to DTs and was discharged home without any new medications. Given patient's continued alcohol abuse to discuss further AA meetings but also oral medication to assist with alcohol urges. Patient is agreeable and will prescribe acamprosate for additional support and helping patient remain sober 02/07/2024 Nonalcoholic steatohepatitis (WALLACE) (ICD-10 - K75.81) Will reassess patient's liver functions as she did have elevated LFTs and an increased Wallace score int he past which was related to previous increased alcohol consumption. 05/19/2024 Anemia in other chronic diseases classified elsewhere (ICD-10 - D63.8) Previous lab work did reveal low red blood cells as well as lower hemoglobin and hematocrit levels during her hospital stay. Recent lab work did show that these levels were starting to trend upward. Will obtain an updated CBC level to assess and ensure continued improvement 04/28/2024 Personal history of other diseases of the nervous system and sense organs (ICD-10 - Z86.69) Patient was admitted in February to [facility] for findings of a spinal abscess. She underwent excessive antibiotic treatments and was then transferred to [facility] for outpatient therapy. She continues to work with a Lorna NEWELL for both physical therapy and nursing visits. Patient aware to follow-up should she have any new or worsening symptoms of concern. Will also obtain updated lab work at this time to ensure improvements are noted since her hospital admission 08/11/2024 Major depressive disorder, single episode, moderate (ICD-10 - F32.1) Patient continues to take her duloxetine daily and feels as though her depressive symptoms have improved on this medication. Patient does admit to drinking wine yesterday and states her last drink was last night. Discussed the importance of avoiding alcohol use as this could disrupt the efficacy of her antibiotic and given her paraspinal abscess and MRSA infection, appropriate antibiotic use is warranted. Also discussed with patient that increased alcohol use has worsened her depressive symptoms in the past. 08/18/2024 Chronic kidney disease, stage 2 (mild) (ICD-10 - N18.2) Previous GFR noted to be stable in the 70s. Will obtain an updated GFR level at this time 09/11/2024 Major depressive disorder, single episode, moderate (ICD-10 - F32.1) Patient continues to take her duloxetine daily and states that she does have low moods, but it continues to be more related to her limited ability to complete tasks given underlying shortness of breath and recent hospitalization. Patient to remain on current medication regimen and will reassess underlying low moods at follow-ups and if patient feels as though her moods have not improved will increase her duloxetine dose to 60 grams daily 10/13/2024 Hypertensive chronic kidney disease with stage 1 through stage 4 chronic kidney disease, or unspecified chronic kidney disease (ICD-10 - I12.9) Blood pressure stable during today's visit. Plan is for continued management of comorbidity of HTN 10/13/2024 Chronic kidney disease, stage 2 (mild) (ICD-10 - N18.2) Previous GFR noted to be stable in the 70s. Plan is to manage comorbidity of HTN to ensure GFR remains stable 09/11/2024 Alcohol abuse with alcohol-induced anxiety disorder (ICD-10 - F10.180) Patient admits to relapsing after being discharged from rehab but remains sober since this relapse. Patient to consider restarting with AA as this did greatly manage her urges and assisted in managing and maintaining her sobriety 08/18/2024 Major depressive disorder, single episode, moderate (ICD-10 - F32.1) Patient continues to take her duloxetine daily and states that she does have low moods, but it is more related to her limited ability to complete tasks given underlying shortness of breath and recent hospitalization. Discussed increasing patient's duloxetine but given this acute hospitalization would like patient to remain on current duloxetine dose with follow-up in 2 weeks. Will reassess underlying low moods and if patient feels as though her moods have not improved will increase her duloxetine dose to 60 grams daily 08/11/2024 Generalized anxiety disorder (ICD-10 - F41.1) Patient shares concerns of increased anxiety since returning home. She was advised to discontinue propranolol and started on metoprolol to further assist in managing her tachycardia which was noted during her hospital admission. Encouraged patient to remain on metoprolol for not only management of the tachycardia but also improvement in her anxiety. Patient also shared concerns of increased urge to drink and admits to drinking wine yesterday, last drink last evening. Would like patient to use Ativan sparingly for any increased anxiety or panic related to urges to drink. Plan will be for close follow-up in office weekly and patient to follow-up sooner should she feel as though her urges to drink become more unmanageable 04/28/2024 Muscle spasm of back (ICD-10 - M62.830) Discussed with patient her current sleeping arrangements which may be the underlying cause for her muscle spasm and discomfort on the right side of her back. Patient is currently sleeping on the couch until the handrails are put on the stairs as she does not feel she can safely navigate ambulating to her bedroom upstairs. Encouraged patient to apply ice 20 minutes at a time multiple times a day, as well as using topical lidocaine patches or even CBD cream to assist in muscle spasms. If pain worsens despite these treatments patient to notify the office. 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 Patient's daughters share concerns that she is drinking as her partner is a heavy drinker which causes patient to begin drinking. Will obtain lab work including a Peth level to assess this further. If patient's Peth is elevated, patient would benefit from restarting medication to assist with avoiding alcohol use. Encouraged patient to restart her AA meetings as this was a great additional support to help her avoid drinking in the past 02/07/2024 Low back pain, unspecified (ICD-10 - M54.50) Discussed patient's intermittent low back pain and negative findings on exam today. Would like to obtain lumbar sacral x-rays for further evaluation. Discussed with patient her previous elevated liver and kidney function tests and cautioned on use of Tylenol and Motrin. Due to persistent pain in neck, lower back, and left shoulder, did discuss beginning gabapentin for additional pain management support and will continue to monitor for lab results to guide patient on Tylenol and Motrin use 02/07/2024 Pain in left shoulder (ICD-10 - M25.512) Reviewed with patient her left shoulder pain and limited range of motion during exam today. Patient does have equal hand grasps and suspect that this might be muscular in nature. Will obtain left shoulder x-ray and encouraged patient to apply ice multiple times a day to upper left shoulder to assist with muscle soreness and pain. Depending on x-ray findings, patient may benefit from further imaging if symptoms continue or worsen. Patient is scheduled on February 17 and we will reassess shoulder pain at that visit 05/19/2024 Bilateral primary osteoarthritis of knee (ICD-10 - M17.0) Patient has a longstanding history of osteoarthritis in both knees. Patient has been taking Motrin and Tylenol without any relief of symptoms. Given patient's alcohol abuse and current use per daughter would like patient to avoid excessive amounts of Motrin. Patient could continue taking Tylenol arthritis and encouraged patient to consider taking curcumin 500 mg twice a day for further improvement of osteoarthritis. Patient states she was also evaluated by [facility] and would like referral back there to discuss cortisone injections versus knee replacements in the future. Referral placed at this time 08/11/2024 Anemia in other chronic diseases classified elsewhere (ICD-10 - D63.8) Previous lab work, prior to patient's hospital admission, did reveal low red blood cells as well as low hemoglobin and hematocrit levels. 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 Patient to consider starting with AA as this did greatly improve her urges and assisted in managing and maintaining her sobriety 09/11/2024 Shortness of breath (ICD-10 - R06.02) Reviewed with patient that her CT angiogram was without findings for PE. Her echo was reviewed and there were no findings related to the mitral valve given her recent sepsis and MRSA infection. There was some calcification seen, but there was no lesion on the mitral valve which was previously seen on her echocardiogram while admitted. Patient aware to follow-up sooner should she have any new or worsening symptoms while we wait for echocardiogram to be completed 10/13/2024 Major depressive disorder, single episode, moderate (ICD-10 - F32.1) Patient continues to take her duloxetine daily and states that she does have low moods, but they are improving the more she is able to do and as her activity level improves. Patient to remain on current medication regimen and will reassess underlying low moods at follow-up apts to determine if any additional management is warranted to assist with her mental health. Patient aware to follow up should she feel as though her moods are not well controlled and we can increase her duloxetine dose to 60 grams daily 09/11/2024 Supraventricular tachycardia, unspecified (ICD-10 - I47.10) Patient Holter monitor reviewed and there was a finding of 27 episodes of Atrial Tachycardia, longest 3.2 m with the fastest beat up to 205 bpm. Discussed with pt that this could be the underlying cause for her SOB, with and without exertion. Will increase pt Metoprolol dosing and will also refer patient to cardiology as she may require EP intervention given this finding. 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 Family agrees with this as well. Patient to consider restarting with AA as this did greatly manage her urges and assisted in managing and maintaining her sobriety 08/18/2024 Shortness of breath (ICD-10 - R06.02) Reviewed with patient that her CT angiogram was without findings for PE. Suspect that patient's shortness of breath may be related to mitral valve involvement given her recent sepsis and MRSA infection. While patient was admitted it was noted on her echocardiogram that there was a finding of a lesion on the mitral valve. Patient states she is not scheduled for her echocardiogram until November and discussed that we will try and schedule a sooner echocardiogram given high suspicion of mitral valve involvement leading to her shortness of breath. 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 Last drink was last evening. Encouraged patient to restart her AA meetings as this was a great additional support to help her avoid drinking in the past 02/07/2024 Cellulitis of left upper limb (ICD-10 - L03.114) Patient states she developed skin sores' to her left forearm and upper arm after placement of her IV in the hospital. Patient has been applying topical bacitracin but given appearance of nonhealing areas and erythema around wounds, will begin treatment for cellulitis. Patient is scheduled to be seen on February 17 and will reassess area then. Patient also aware that if wounds worsen, she should be seen urgently for sooner appointment 02/07/2024 Cervicalgia (ICD-10 - M54.2) Discussed with patient that there are minimal findings on exam today today determine underlying causes for her neck and left shoulder pain. She does have tight trapezius muscles noted and encouraged patient to apply ice multiple times a day to assist with releasing muscle tension. Will obtain a cervical spine x-ray and will begin gabapentin to be used for neck, shoulder, and back pain. Cautioned on excessive use of Tylenol and Motrin until lab work is back given previous history of elevated LFTs and kidney function secondary to excessive alcohol use. 08/11/2024 Shortness of breath (ICD-10 - R06.02) Spent much time discussing patient's shortness of breath with exertion. Did review hospital notes and testing and there were findings of a lesion on the mitral valve and given patient's sepsis history would like to repeat echocardiogram to ensure that her mitral valve is functioning correctly and there are no concerns of damage due to sepsis and potential endocarditis. Patient also agreeable to complete a chest x-ray as well as lab work for further evaluation. Plan will be for close follow-up in the office weekly and patient aware to follow-up with any new or worsening symptoms while we wait for her echocardiogram to be completed 10/13/2024 Shortness of breath (ICD-10 - R06.02) Reviewed with patient that her CT angiogram was without findings for PE. Her echo was reviewed and there were no findings related to the mitral valve given her recent sepsis and MRSA infection. There was some calcification seen, but there was no lesion on the mitral valve which was previously seen on her echocardiogram while admitted. Patient states her SOB is improving and this may have been related to post hospitalization and being deconditioned. Would like pt to undergo PFTs for further evaluation of these symptoms. Patient aware to follow-up sooner should she have any new or worsening symptoms while we wait for echocardiogram to be completed 08/11/2024 Palpitations (ICD-10 - R00.2) EKG completed in office and no significant findings noted. Due to patient's concerns of shortness of breath with exertion would like patient to wear a Holter monitor. Patient is agreeable to have Holter monitor placed tomorrow as she will obtain a chest x-ray this evening or tomorrow. Patient to continue using her metoprolol for management of tachycardia and she is to follow-up with any new or worsening symptoms. Plan will be for weekly visits as well to ensure close follow-up given her recent hospital and rehab admission for paraspinal abscess as well as to ensure she does not return to heavy excessive alcohol use 10/13/2024 Supraventricular tachycardia, unspecified (ICD-10 - I47.10) Patient Holter monitor reviewed and there was a finding of 27 episodes of Atrial Tachycardia, longest 3.2 m with the fastest beat up to 205 bpm. Discussed with pt that this could be the underlying cause for her SOB, with and without exertion. Will increase pt Metoprolol dosing and will also refer patient to cardiology as she may require EP intervention given this finding. Patient and family requesting a referral to [facility] as she was seen by them during her most recent hospitalization due to spinal abscess. Patient to follow up if symptoms worsen or new symptoms begin while we wait for Cardiology consult 08/11/2024 Acute upper respiratory infection, unspecified (ICD-10 - J06.9) Given patient's shortness of breath and recent hospital and rehab admission did obtain a respiratory panel swab to ensure that her shortness of breath is not related to an underlying viral infection 10/13/2024 Impaired fasting glucose (ICD-10 - R73.01) Previous labs did reveal concerns of impaired fasting glucose levels. Will obtain an updated comp panel as well as A1c level 10/13/2024 Asymptomatic microscopic hematuria (ICD-10 - R31.21) Previous findings of microscopic hematuria. Suspect that this may have been caused to heavy alcohol use and uncontrolled HTN. Labs have improved since initial lab results with these concerns. Will obtain updated labs to reassess and pt to continue decreasing her alcohol use and will continue control of comorbidity of HTN 10/13/2024 Elevation of levels of liver transaminase levels (ICD-10 - R74.01) Previous labs did she elevated LFTS which normalized. Suspect this was related to her ETOH use. Will obtain updated labs to reassess 10/13/2024 Vitamin D deficiency, unspecified (ICD-10 - E55.9) Will check level as adjunct evaluation for fall risk and possibly dementia 10/13/2024 Encounter for screening for malignant neoplasm of colon (ICD-10 - Z12.11) Patient is due for a screening colonoscopy as she is unsure when her last screening was completed. REferral to Dr. Cedeño placed at this time 10/13/2024 Encounter for screening mammogram for malignant neoplasm of breast (ICD-10 - Z12.31) Patient is due for an updated mammogram to ensure she is up-to-date with breast cancer screenings 10/13/2024 Encounter for screening for osteoporosis (ICD-10 - Z13.820) Patient completed a DEXA in 2023 and will plan to repeat DEXA in 2025 to ensure she is up-to-date on osteoporosis screening 10/13/2024 Asymptomatic menopausal state (ICD-10 - Z78.0) See plan above 10/13/2024 Encounter for screening for cardiovascular disorders (ICD-10 - Z13.6) Blood pressure stable. Will check for comorbidity of hyperlipidemia and hyperglycemia and use this data to further assess risk 10/13/2024 Encounter for immunization (ICD-10 - Z23) Vaccines up-to-date 10/13/2024 Encounter for antibody response examination (ICD-10 - Z01.84) Titers have been checked in the past and is immune to rubeola 10/13/2024 Encounter for screening for other viral diseases (ICD-10 - Z11.59) Will screen for hepatitis C as is the general recommendation 10/13/2024 Encounter for screening examination for other mental health and behavioral disorders (ICD-10 - Z13.39) PHQ scores reviewed and pt admits to having low moods, but they are improving as her physical ability is improving. Pt to remain on current medication regimen, and she is to follow up should she feel she needs additional mental health supports 08/18/2024 Other 10/13/2024 Other This note was created with voice dictation recognition software and may contain errors of grammar and syntax Plan Of Treatment Pending Test Test Name Order Date Echocardiogram 08/11/2024 PFT with DLCO 10/13/2024 HEMOGLOBIN A1C 12/17/2022 IMMUNOFIXATION SERUM 12/17/2022 IMMUNOFIXATION URINE 12/17/2022 PTH, INTACT 12/17/2022 BO 12/17/2022 SMOOTH MUSCLE AB 12/17/2022 HOLTER MONITOR, 7 DAYS, APPLICATION 070 09/2024 HOLTER MONITOR, 7 DAYS, APPLICATION 070 08/2024 HOLTER MONITOR, 7 DAYS, INTERPRETATION 0 09/11/2024 Hemoglobin E6s-[id number] 10/13/2024 Urinalysis, Complete-[id number] 10/13/2024 Urinalysis, Complete-[id number] 02/07/2024 CBC With Differential/Platelet-[id number] CBC With Differential/Platelet-561545 Vitamin D, 06-Lkdqogt-[id number] 10/13/2024 Albumin/Creatinine Ratio,Urine-[id number] Albumin/Creatinine Ratio,Urine-599696 Comp. Metabolic Panel [id number] 2024 Comp. Metabolic Panel ([id number] 2024 LP+Non-HDL Cholesterol-[id number] 10/13/2024 Phosphatidylethanol (PEth)-730799 2024 HCV Antibody-[id number] 10/13/2024 US Elastography Parenchyma 06/26/2023 Next Appt Details Provider Name:Allyson Fairchild , 01/19/2025 01:30:00 PM, [address] [place] [address], [phone], Provider Name:Allyson Fairchild , 10/19/2025 01:30:00 PM, [address] [place] [address], [id number], Insurance Providers Payer Name Payer Address Payer Phone Subscriber Number Group Number Insured Name Patient Relationship to Insured Coverage Start Date Coverage End Date MEDICARE [address] MARYCHUYMARQUIS HILTONJEWELLDORINDA [id number] Lorene Miller Self - patient is the insured [facility] Supplemental [address] [place] [address] [id number] Lorene Miller Self - patient is the insured Medical (General) History Medical History History ICD Code Panic attacks Generalized anxiety Depression Mitral valve regurgitation osteoarthritis Essential (primary) hypertension (resolv ed 04/07/2023) undefined Alcohol dependence, uncomplicated (resol mary 05/14/2023) undefined Alcohol abuse, in remission (resolved ) Surgical History Surgery Date(Month/Year) right wrist fracture 2018 right ankle fracture 2009 1981 and 1983 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
--- OUTSIDE RECORDS SUMMARY | 2024-12-03 09:52 | XMS_ITS | Encounter Summary ---
Author Organization [facility] Address [address] [place] [address] Care Team Providers Care Rewinder Operator Helper Name Role Phone Allyson Fairchild NP Primary Care Provider [phone] Encounter Details Date Type Department Care Team (Latest Contact Info) Description 08/05/2024 Lab Requisition [facility] - Main Lab [address] [facility] [place] [address] Rakesh Bullock MD [address] [place] [address] [facility] (current) use of antibiotics; Osteomyelitis of vertebra, thoracolumbar region (CMS/HCC V24, CMS/HCC V28) Social History [...] Description 12/03/2024 12:[address] [facility] Pulmonary [address] [place] [address] 12/12/2024 12:30 PM EST Office Visit [facility] Cardiology [facility] [address] [place] [phone] Rodríguez Meza MD [address] [place], [place] [phone] 02/18/2025 10:00 AM EST Office Visit Infectious Disease [facility] [address] [place] [phone] Daria Woodall MD [address] [place] [address] documented as of this encounter Procedures Procedure Name Priority Date/Time Associated Diagnosis Comments VANCOMYCIN, TROUGH STAT 08/05/2024 7: 52 AM EDT [facility] (current) use of antibiotics Osteomyelitis of vertebra, thoracolumbar region ([facility] V24, [facility] V28) documented in this encounter Results * Vancomycin, trough (08/05/2024 7:52 AM EDT) Vancomycin Trough 16.5 10.0 - 20.0 mcg/mL LAB CHEMISTRY METHOD 08/05/2024 8:57 AM EDT [facility] LAB Blood Venous blood specimen / Unknown Venipuncture / Unknown 08/05/2024 7:52 AM EDT 08/05/2024 8:31 AM EDT Rakesh Bullock MD LAB BLOOD ORDERABLES Final Resu lt [facility] LAB [address] [place] [address], documented in this encounter Visit Diagnoses Diagnosis [facility] (current) use of antibiotics Osteomyelitis of vertebra, thoracolumbar region ([facility] V24, [facility] V28) documented in this encounter Care Teams Rewinder Operator Helper Relationship Specialty Start Date End Date Allyson Fairchild, JAIDEN [address] [place] [id number] PCP - General Family Medicine 02/18/24 documented as of this encounter
--- OUTSIDE RECORDS SUMMARY | 2024-12-03 09:52 | XMS_ITS | Encounter Summary ---
Author Organization [facility] Address [address] [place] [address] Care Team Providers Care Embossing Machine Tender Name Role Phone Allyson Fairchild NP Primary Care Provider [phone] Encounter Details Date Type Department Care Team (Late st Contact Info) Description 07/21/2024 Lab Requisition [facility] - Main Lab [address] [facility] [place] [address] Rakesh Bullock MD [address] [place] [address] Encounter for other orthopedic aftercare Social History Tobacco Use Types Packs/Day Years [...] Description 12/03/2024 12:[address] [facility] Pulmonary [address] [place] [address] 12/12/2024 12:30 PM EST Office Visit [facility] Cardiology - [place] [address] [place] [phone] Rodríguez Meza MD [address] [place] [address] 02/18/2025 10:00 AM EST Office Visit Infectious Disease [facility] [address] [place] [address] Daria Woodall MD [address] [place] [address] documented as of this encounter Visit Diagnoses Diagnosis Encounter for other orthopedic aftercare documented in this encounter Care Teams Embossing Machine Tender Relationship Specialty Start Date End Date Allyson Fairchild NP [address] [place] [id number] PCP - General Family Medicine 02/18/24 documented as of this encounter
--- OUTSIDE RECORDS SUMMARY | 2024-12-03 09:52 | XMS_ITS | Encounter Summary ---
Author Organization [facility] Address [address] [place] [address] Care Team Providers Care Etl Tester Name Role Phone Allyson Fairchild NP Primary Care Provider [phone] Encounter Details Date Type Department Care Team (Latest Contact Info) Description 03/24/2024 Lab Requisition [facility] - Main Lab [address] [facility] [place] [address] Rakesh Bullock MD [address] [place] [address] Osteomyelitis of vertebra, thoracolumbar region (CMS/HCC V24, CMS/HCC V28); Essential (primary) hypertension Social History Tobacco Use [...] Info) Description 12/03/2024 12:45 PM EDT Appointment [facility] Pulmonary [address] [place] [address] 12/12/2024 12:30 PM EST Office Visit [facility] Cardiology [facility] [address] [place] [phone] Rodríguez Meza MD [address] [place] [address] 02/18/2025 10:00 AM EST Office Visit Infectious Disease - [place] [address] [place] [address] Daria Woodall MD [address] [place], [place] [phone] documented as of this encounter Procedures Procedure Name Priority Date/Time Associated Diagnosis Comments SEDIMENTATION RATE Routine 03/25/2024 5: 00 AM EST Osteomyelitis of vertebra, thoracolumbar region (CMS/HCC) Essential (primary) hypertension COMPLETE BLOOD COUNT Routine 03/25/2024 5:00 AM EST Osteomyelitis of vertebra, thoracolumbar region ([facility]/HCC) Essential (primary) hypertension C-REACTIVE PROTEIN Routine 03/25/2024 5: 00 AM EST Osteomyelitis of vertebra, thoracolumbar region (CMS/HCC) Essential (primary) hypertension VANCOMYCIN, TROUGH STAT 03/25/2024 5: 00 AM EST Osteomyelitis of vertebra, thoracolumbar region (CMS/HCC) Essential (primary) hypertension COMPREHENSIVE METABOLIC PANEL Routine 03/25/2024 5:00 AM EST Osteomyelitis of vertebra, thoracolumbar region (CMS/HCC) Essential (primary) hypertension documented in this encounter Results * (ABNORMAL) Vancomycin, trough (03/25/2024 5:00 AM EST) Vancomycin Trough 24.6(H) 10.0 - 20.0 mcg/mL LAB CHEMISTRY METHOD 03/25/2024 6:49 AM EST [facility] Blood Venous blood specimen / Unknown 03/25/2024 5:00 AM EST 03/25/2024 6:21 AM EST us Rakesh Bullock MD LAB BLOOD ORDERABLES Final Resu lt Performing Organization Address City/[facility]/ZIP Co de Phone Number [facility] [address] [place] [address], [place] [phone] * (ABNORMAL) C-reactive protein (03/25/2024 5:00 AM EST) C-Reactive Protein 10.50(H) <=0.50 mg/dL LAB CHEMISTRY METHOD 03/25/2024 6:49 AM EST [facility] Blood Venous blood specimen / Unknown 03/25/2024 5:00 AM EST 03/25/2024 6:21 AM EST us Rakesh Bullock MD LAB BLOOD ORDERABLES Final Resu lt [facility] [address] [place] [address], [place] [phone] * (ABNORMAL) Sedimentation rate (03/25/2024 5:00 AM EST) Sed Rate >130(H) 0 - 30 mm/hr LAB HEMETOLOGY METHOD 03/25/2024 6:50 AM EST [facility] Blood Venous blood specimen / Unknown 03/25/2024 5:00 AM EST 03/25/2024 6:21 AM EST us Rakesh Bullock MD LAB BLOOD ORDERABLES Final Resu lt [facility] [address] [place] [address], * (ABNORMAL) Comprehensive metabolic panel (03/25/2024 5:00 AM EST) Sodium 136 133 - 145 mmol/L LAB CHEMISTRY METHOD 03/25/2024 6:49 AM EST [facility] Potassium 5.1 3.5 - 5.5 mmol/L LAB CHEMISTRY METHOD 03/25/2024 6:49 AM [facility] Chloride 103 96 - 110 mmol/L LAB CHEMISTRY METHOD 03/25/2024 6:49 AM [facility] CO2 27 21 - 32 mmol/L LAB CHEMISTRY METHOD 03/25/2024 6:49 AM [facility] Anion Gap 6 3 - 11 LAB CHEMISTRY METHOD 03/25/2024 6:49 AM [facility] Glucose 89 70 - 100 mg/dL LAB CHEMISTRY METHOD 03/25/2024 6:49 AM [facility] BUN 16 5 - 25 mg/dL LAB CHEMISTRY METHOD 03/25/2024 6:49 AM [facility] Creatinine 0.64 0.50 - 1.10 mg/dL LAB CHEMISTRY METHOD 03/25/2024 6:49 AM [facility] eGFR 92 >=60 mL/min/1. 73m2 LAB CHEMISTRY METHOD 03/25/2024 6:49 AM [facility] Comment:Calculation based on the Chronic Kidney Disease Epidemiology Collaboration (CKD-EPI) equation refit without adjustment for race. BUN/Creatinine Ratio 25.0 LAB CHEMISTRY METHOD 03/25/2024 6:49 AM [facility] Calcium 9.2 8.5 - 10.5 mg/dL LAB CHEMISTRY METHOD 03/25/2024 6:49 AM [facility] AST (SGOT) 13 10 - 42 unit/L LAB CHEMISTRY METHOD 03/25/2024 6:49 AM [facility] ALT (SGPT) 16 10 - 60 unit/L LAB CHEMISTRY METHOD 03/25/2024 6:49 AM [facility] Alkaline Phosphatase 110 42 - 121 unit/L LAB CHEMISTRY METHOD 03/25/2024 6:49 AM [facility] Total Protein 6.7 6.0 - 8.0 g/dL LAB CHEMISTRY METHOD 03/25/2024 6:49 AM [facility] Albumin 2.6(L) 3.2 - 5.0 g/dL LAB CHEMISTRY METHOD 03/25/2024 6:49 AM [facility] Total Bilirubin 0.4 0.0 - 1.4 mg/dL LAB CHEMISTRY METHOD 03/25/2024 6:49 AM [facility] Blood Venous blood specimen / Unknown 03/25/2024 5:00 AM EST 03/25/2024 6:21 AM EST us Rakesh Bullock MD LAB BLOOD ORDERABLES Final Resu lt [facility] [address] [place] [address], [place] [phone] * (ABNORMAL) Complete blood count (03/25/2024 5:00 AM EST) WBC 6.6 4.8 - 10.8 K/mcL LAB HEMETOLOGY METHOD 03/25/2024 6:32 AM [facility] RBC 3.30(L) 3.80 - 4.80 M/mcL LAB HEMETOLOGY METHOD 03/25/2024 6:32 AM [facility] Hemoglobin 8.9(L) 11.5 - 16.0 g/dL LAB HEMETOLOGY METHOD 03/25/2024 6:32 AM [facility] Hematocrit 29.0(L) 35.0 - 47.0 % LAB HEMETOLOGY METHOD 03/25/2024 6:32 AM EST [facility] MCV 88.1 79.0 - 98.0 FL LAB HEMETOLOGY METHOD 03/25/2024 6:32 AM [facility] MCH 27.1 27.0 - 32.0 pcg LAB HEMETOLOGY METHOD 03/25/2024 6:32 AM EST [facility] MCHC 30.7(L) 32.0 - 37.0 g/dL LAB HEMETOLOGY METHOD 03/25/2024 6:32 AM [facility] RDW 15.0 11.0 - 15.0 % LAB HEMETOLOGY METHOD 03/25/2024 6:32 AM [facility] Platelets 399 130 - 400 K/mcL LAB HEMETOLOGY METHOD 03/25/2024 6:32 AM EST [facility] MPV 9.1 7.0 - 11.0 FL LAB HEMETOLOGY METHOD 03/25/2024 6:32 AM [facility] NRBC 0.0 <1.0 % LAB HEMETOLOGY METHOD 03/25/2024 6:32 AM [facility] NRBC Absolute 0.00 <0.10 K/mcL LAB HEMETOLOGY METHOD 03/25/2024 6:32 AM [facility] Blood Venous blood specimen / Unknown 03/25/2024 5:00 AM EST 03/25/2024 6:21 AM EST us Rakesh Bullock MD LAB BLOOD ORDERABLES Final Resu lt [facility] [address] [place] [address], documented in this encounter Visit Diagnoses Diagnosis Osteomyelitis of vertebra, thoracolumbar region (CMS/HCC V24, CMS/HCC V28) Essential (primary) hypertension Unspecified essential hypertension documented in this encounter Additional Health Concerns Infection Onset Date Last Indicated Resolved Time MRSA 02/19/2024 06/13/2024 06/19/2024 12:0 3 PM EDT MRSA 06/27/2024 06/27/2024 07/01/2024 7:30 AM EDT MRSA 06/27/2024 06/27/2024 07/02/2024 1:23 PM EDT documented as of this encounter Care Teams Etl Tester Relationship Specialty Start Date End Date Allyson Fairchild NP [address] [address] PCP - General Family Medicine 02/18/24 documented as of this encounter
--- OUTSIDE RECORDS SUMMARY | 2024-12-03 09:52 | XMS_ITS | Encounter Summary ---
Author Organization [facility] Address [address] [place] [address] Care Team Providers Care Electrical Tech/Project Manager Name Role Phone Allyson Fairchild NP Primary Care Provider [phone] Encounter Details Date Type Department Care Team (Latest Contact Info) Description 08/01/2024 Lab Requisition [facility] - Main Lab [address] [facility] [place] [address] Rakesh Bullock MD [address] [place] [address] 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; Torticollis; Essential (primary) hypertension; Osteomyelitis of vertebra, thoracic [...] Info) Description 12/03/2024 12:45 PM EDT Appointment Pulmonary [address] [place] [address] 12/12/2024 12:30 PM EST Office Visit [facility] Cardiology - [place] [address] [place] [phone] Rodríguez Meza MD [address] [place], [place] [phone] 02/18/2025 10:00 AM EST Office Visit Infectious Disease - [place] [address] [place] [phone] Daria Woodall MD [address] [place] [address] documented as of this encounter Procedures Procedure Name Priority Date/Time Associated Diagnosis Comments C-REACTIVE PROTEIN Routine 08/04/2024 5: 08 AM EDT 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 Torticollis Essential (primary) hypertension Osteomyelitis of vertebra, thoracic region (CMS/HCC V24, CMS/HCC V28) COMPREHENSIVE METABOLIC PANEL Routine 08/04/2024 5:08 AM EDT 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 Torticollis Essential (primary) hypertension Osteomyelitis of vertebra, thoracic region (CMS/HCC V24, CMS/HCC V28) CBC WITH AUTO DIFFERENTIAL Routine 08/04/2024 5:05 AM EDT 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 Torticollis Essential (primary) hypertension Osteomyelitis of vertebra, thoracic region (CMS/HCC V24, CMS/HCC V28) SEDIMENTATION RATE Routine 08/04/2024 5: 05 AM EDT 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 Torticollis Essential (primary) hypertension Osteomyelitis of vertebra, thoracic region (CMS/HCC V24, CMS/HCC V28) CBC AND DIFFERENTIAL Routine 08/04/2024 5:05 AM EDT 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 Torticollis Essential (primary) hypertension Osteomyelitis of vertebra, thoracic region (CMS/HCC V24, CMS/HCC V28) documented in this encounter Results * (ABNORMAL) C-reactive protein (08/04/2024 5:08 AM EDT) C-Reactive Protein 0.52(H) <=0.50 mg/dL LAB CHEMISTRY METHOD 08/04/2024 10:55 AM EDT [facility] Blood Venous blood specimen / Unknown Venipuncture / Unknown 08/04/2024 5:08 AM EDT 08/04/2024 9:52 AM EDT us Rakesh Bullock MD LAB BLOOD ORDERABLES Final Resu lt [facility] [address] [place] [address], [place] [phone] * Comprehensive metabolic panel (08/04/2024 5:08 AM EDT) Pathologist [facility] Sodium 140 133 - 145 mmol/L LAB CHEMISTRY METHOD 08/04/2024 10:56 AM [facility] Potassium 4.2 3.5 - 5.5 mmol/L LAB CHEMISTRY METHOD 08/04/2024 10:56 AM [facility] Chloride 105 96 - 110 mmol/L LAB CHEMISTRY METHOD 08/04/2024 10:56 AM [facility] CO2 29 21 - 32 mmol/L LAB CHEMISTRY METHOD 08/04/2024 10:56 AM [facility] Anion Gap 6 3 - 11 LAB CHEMISTRY METHOD 08/04/2024 10:56 AM [facility] Glucose 74 70 - 100 mg/dL LAB CHEMISTRY METHOD 08/04/2024 10:56 AM [facility] BUN 15 5 - 25 mg/dL LAB CHEMISTRY METHOD 08/04/2024 10:56 AM [facility] Creatinine 0.97 0.50 - 1.10 mg/dL LAB CHEMISTRY METHOD 08/04/2024 10:56 AM [facility] eGFR 61 >=60 mL/min/1. 73m2 LAB CHEMISTRY METHOD 08/04/2024 10:56 AM [facility] Comment:Calculation based on the Chronic Kidney Disease Epidemiology Collaboration (CKD-EPI) equation refit without adjustment for race. BUN/Creatinine Ratio 15.5 LAB CHEMISTRY METHOD 08/04/2024 10:56 AM EDT [facility] Calcium 9.3 8.5 - 10.5 mg/dL LAB CHEMISTRY METHOD 08/04/2024 10:56 AM T [facility] AST (SGOT) 21 10 - 42 unit/L LAB CHEMISTRY METHOD 08/04/2024 10:56 AM [facility] ALT (SGPT) 23 10 - 60 unit/L LAB CHEMISTRY METHOD 08/04/2024 10:56 AM T [facility] Alkaline Phosphatase 93 42 - 121 unit/L LAB CHEMISTRY METHOD 08/04/2024 10:56 AM [facility] Total Protein 6.2 6.0 - 8.0 g/dL LAB CHEMISTRY METHOD 08/04/2024 10:56 AM [facility] Albumin 3.3 3.2 - 5.0 g/dL LAB CHEMISTRY METHOD 08/04/2024 10:56 AM [facility] Total Bilirubin 0.4 0.0 - 1.4 mg/dL LAB CHEMISTRY METHOD 08/04/2024 10:56 AM [facility] Blood Venous blood specimen / Unknown Venipuncture / Unknown 08/04/2024 5:08 AM EDT 08/04/2024 9:52 AM EDT us Rakesh Bullock MD LAB BLOOD ORDERABLES Final Resu lt [facility] [address] [place] [address], * (ABNORMAL) CBC auto differential (08/04/2024 5:05 AM EDT) WBC 5.1 4.8 - 10.8 K/mcL LAB HEMETOLOGY METHOD 08/04/2024 10:14 AM EDT [facility] RBC 3.70(L) 3.80 - 4.80 M/mcL LAB HEMETOLOGY METHOD 08/04/2024 10:14 AM [facility] Hemoglobin 9.8(L) 11.5 - 16.0 g/dL LAB HEMETOLOGY METHOD 08/04/2024 10:14 AM [facility] Hematocrit 32.6(L) 35.0 - 47.0 % LAB HEMETOLOGY METHOD 08/04/2024 10:14 AM [facility] MCV 87.6 79.0 - 98.0 FL LAB HEMETOLOGY METHOD 08/04/2024 10:14 AM [facility] MCH 26.3(L) 27.0 - 32.0 pcg LAB HEMETOLOGY METHOD 08/04/2024 10:14 AM [facility] MCHC 30.1(L) 32.0 - 37.0 g/dL LAB HEMETOLOGY METHOD 08/04/2024 10:14 AM [facility] RDW 14.4 11.0 - 15.0 % LAB HEMETOLOGY METHOD 08/04/2024 10:14 AM [facility] Platelets 220 130 - 400 K/mcL LAB HEMETOLOGY METHOD 08/04/2024 10:14 AM [facility] MPV 10.1 7.0 - 11.0 FL LAB HEMETOLOGY METHOD 08/04/2024 10:14 AM [facility] NRBC 0.0 <1.0 % LAB HEMETOLOGY METHOD 08/04/2024 10:14 AM [facility] NRBC Absolute 0.00 <0.10 K/mcL LAB HEMETOLOGY METHOD 08/04/2024 10:14 AM [facility] Neutrophils Relative 53.4 % LAB HEMETOLOGY METHOD 08/04/2024 10:14 AM [facility] Lymphocytes Relative 25.1 % LAB HEMETOLOGY METHOD 08/04/2024 10:14 AM [facility] Monocytes Relative 13.0 % LAB HEMETOLOGY METHOD 08/04/2024 10:14 AM [facility] Eosinophils Relative 7.7 % LAB HEMETOLOGY METHOD 08/04/2024 10:14 AM [facility] Basophils Relative 0.6 % LAB HEMETOLOGY METHOD 08/04/2024 10:14 AM [facility] Immature Granulocytes Relative 0.2 % LAB HEMETOLOGY METHOD 08/04/2024 10:14 AM [facility] Neutrophils Absolute 2.70 1.50 - 7.00 K/mcL LAB HEMETOLOGY METHOD 08/04/2024 10:14 AM [facility] Lymphocytes Absolute 1.27 1.00 - 5.00 K/mcL LAB HEMETOLOGY METHOD 08/04/2024 10:14 AM [facility] Monocytes Absolute 0.66 0.20 - 1.00 K/mcL LAB HEMETOLOGY METHOD 08/04/2024 10:14 AM [facility] Eosinophils Absolute 0.39 0.00 - 0.50 K/mcL LAB HEMETOLOGY METHOD 08/04/2024 10:14 AM [facility] Basophils Absolute 0.03 0.00 - 0.20 K/mcL LAB HEMETOLOGY METHOD 08/04/2024 10:14 AM [facility] Immature Granulocytes Absolute 0.01 0.00 - 0.03 K/mcL LAB HEMETOLOGY METHOD 08/04/2024 10:14 AM [facility] Blood Venous blood specimen / Unknown Venipuncture / Unknown 08/04/2024 5:05 AM EDT 08/04/2024 9:53 AM EDT us Rakesh Bullock MD LAB BLOOD ORDERABLES Final Resu lt Performing Organization Address [facility]/ZIP Co de Phone Number [facility] [address] [place] [address], [place] [phone] * (ABNORMAL) Sedimentation rate (08/04/2024 5:05 AM EDT) Sed Rate 43(H) 0 - 30 mm/hr LAB HEMETOLOGY METHOD 08/04/2024 10:24 AM EDT [facility] Blood Venous blood specimen / Unknown Venipuncture / Unknown 08/04/2024 5:05 AM EDT 08/04/2024 9:53 AM EDT Rakesh Bullock MD LAB BLOOD ORDERABLES Final Resu lt Performing Organization Address [facility] Co de Phone Number [facility] [address] [place] [address], documented in this encounter Visit Diagnoses Diagnosis 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 Torticollis Torticollis, unspecified Essential (primary) hypertension Unspecified essential hypertension Osteomyelitis of vertebra, thoracic region (CMS/HCC V24, CMS/HCC V28) documented in this encounter Care Teams Electrical Tech/Project Manager Relationship Specialty Start Date End Date Allyson Fairchild NP [address] [place] [id number] PCP - General Family Medicine 02/18/24 documented as of this encounter
--- OUTSIDE RECORDS SUMMARY | 2024-12-03 09:52 | XMS_ITS | Encounter Summary ---
Author Organization [facility] Address [address] [place] [address] Care Team Providers Care Improvement Spec Name Role Phone Allyson Fairchild NP Primary Care Provider [phone] Encounter Details Date Type Department Care Team (Latest Contact Info) Description 03/31/2024 Lab Requisition [facility] - Main Lab 299 [facility] [place] [address] Rakesh Bullock MD [address] [place] [address] Osteomyelitis of vertebra, thoracolumbar region [...] Info) Description 12/03/2024 12:45 PM EDT Appointment [facility] Pulmonary [address] [place] [address] 12/12/2024 12:30 PM EST Office Visit [facility] Cardiology - [place] [address] [place] [address] Rodríguez Meza MD [address] [place] [address] 02/18/2025 10:00 AM EST Office Visit Infectious Disease - [place] [address] [place] [address] Daria Woodall MD [address] [place], [place] [phone] documented as of this encounter Procedures Procedure Name Priority Date/Time Associated Diagnosis Comments SEDIMENTATION RATE Routine 04/01/2024 4: 58 AM EST Osteomyelitis of vertebra, thoracolumbar region (CMS/HCC) Essential (primary) hypertension COMPLETE BLOOD COUNT Routine 04/01/2024 4:58 AM EST Osteomyelitis of vertebra, thoracolumbar region (CMS/HCC) Essential (primary) hypertension C-REACTIVE PROTEIN Routine 04/01/2024 4: 58 AM EST Osteomyelitis of vertebra, thoracolumbar region (CMS/HCC) Essential (primary) hypertension VANCOMYCIN, TROUGH Routine 04/01/2024 4: 58 AM EST Osteomyelitis of vertebra, thoracolumbar region (CMS/HCC) Essential (primary) hypertension COMPREHENSIVE METABOLIC PANEL Routine 04/01/2024 4:58 AM EST Osteomyelitis of vertebra, thoracolumbar region (CMS/HCC) Essential (primary) hypertension documented in this encounter Results * Vancomycin, trough (04/01/2024 4:58 AM EST) Vancomycin Trough 12.3 10.0 - 20.0 mcg/mL LAB CHEMISTRY METHOD 04/01/2024 6:01 AM EST [facility] Blood Venous blood specimen / Unknown Venipuncture / Unknown 04/01/2024 4:58 AM EST 04/01/2024 5:32 AM EST us Rakesh Bullock MD LAB BLOOD ORDERABLES Final Resu lt Performing Organization Address City/[facility]/ZIP Co de Phone Number [facility] [address] [place] [address], [place] [phone] * (ABNORMAL) C-reactive protein (04/01/2024 4:58 AM EST) [facility] C-Reactive Protein 5.45(H) <=0.50 mg/dL LAB CHEMISTRY METHOD 04/01/2024 6:01 AM EST [facility] Blood Venous blood specimen / Unknown Venipuncture / Unknown 04/01/2024 4:58 AM EST 04/01/2024 5:32 AM EST us Rakesh Bullock MD LAB BLOOD ORDERABLES Final Resu lt Performing Organization Address City/[facility]/ZIP Co de Phone Number [facility] [address] [place] [address], [place] [phone] * (ABNORMAL) Sedimentation rate (04/01/2024 4:58 AM EST) Pathologist [facility] Sed Rate >130(H) 0 - 30 mm/hr LAB HEMETOLOGY METHOD 04/01/2024 6:27 AM EST [facility] Blood Venous blood specimen / Unknown Venipuncture / Unknown 04/01/2024 4:58 AM EST 04/01/2024 5:32 AM EST us Rakesh Bullock MD LAB BLOOD ORDERABLES Final Resu lt [facility] [address] [place] [address], [place] [phone] * (ABNORMAL) Comprehensive metabolic panel (04/01/2024 4:58 AM EST) Sodium 139 133 - 145 mmol/L LAB CHEMISTRY METHOD 04/01/2024 6:[address] [facility] Potassium 4.6 3.5 - 5.5 mmol/L LAB CHEMISTRY METHOD 04/01/2024 6:[address] [facility] Chloride 106 96 - 110 mmol/L LAB CHEMISTRY METHOD 04/01/2024 6:[address] [facility] CO2 27 21 - 32 mmol/L LAB CHEMISTRY METHOD 04/01/2024 6:[address] [facility] Anion Gap 6 3 - 11 LAB CHEMISTRY METHOD 04/01/2024 6:[address] [facility] Glucose 90 70 - 100 mg/dL LAB CHEMISTRY METHOD 04/01/2024 6:[address] [facility] BUN 18 5 - 25 mg/dL LAB CHEMISTRY METHOD 04/01/2024 6:[address] [facility] Creatinine 0.70 0.50 - 1.10 mg/dL LAB CHEMISTRY METHOD 04/01/2024 6:[address] [facility] eGFR 90 >=60 mL/min/1. 73m2 LAB CHEMISTRY METHOD 04/01/2024 6:[address] [facility] Comment:Calculation based on the Chronic Kidney Disease Epidemiology Collaboration (CKD-EPI) equation refit without adjustment for race. BUN/Creatinine Ratio 25.7 LAB CHEMISTRY METHOD 04/01/2024 6:[address] [facility] Calcium 9.1 8.5 - 10.5 mg/dL LAB CHEMISTRY METHOD 04/01/2024 6:[address] [facility] AST (SGOT) 11 10 - 42 unit/L LAB CHEMISTRY METHOD 04/01/2024 6:[address] [facility] ALT (SGPT) 15 10 - 60 unit/L LAB CHEMISTRY METHOD 04/01/2024 6:[address] [facility] Alkaline Phosphatase 107 42 - 121 unit/L LAB CHEMISTRY METHOD 04/01/2024 6:[address] [facility] Total Protein 6.3 6.0 - 8.0 g/dL LAB CHEMISTRY METHOD 04/01/2024 6:[address] [facility] Albumin 2.6(L) 3.2 - 5.0 g/dL LAB CHEMISTRY METHOD 04/01/2024 6:[address] [facility] Total Bilirubin 0.3 0.0 - 1.4 mg/dL LAB CHEMISTRY METHOD 04/01/2024 6:[address] [facility] Blood Venous blood specimen / Unknown Venipuncture / Unknown 04/01/2024 4:58 AM EST 04/01/2024 5:32 AM EST us Rakesh Bullock MD LAB BLOOD ORDERABLES Final Resu lt [facility] [address] [place] [address], [place] [phone] * (ABNORMAL) Complete blood count (04/01/2024 4:58 AM EST) WBC 7.1 4.8 - 10.8 K/mcL LAB HEMETOLOGY METHOD 04/01/2024 5:[address] [facility] RBC 3.10(L) 3.80 - 4.80 M/mcL LAB HEMETOLOGY METHOD 04/01/2024 5:[address] [facility] Hemoglobin 8.4(L) 11.5 - 16.0 g/dL LAB HEMETOLOGY METHOD 04/01/2024 5:45 AM EST [facility] Hematocrit 28.2(L) 35.0 - 47.0 % LAB HEMETOLOGY METHOD 04/01/2024 5:[address] [facility] MCV 91.6 79.0 - 98.0 FL LAB HEMETOLOGY METHOD 04/01/2024 5:[address] [facility] MCH 27.3 27.0 - 32.0 pcg LAB HEMETOLOGY METHOD 04/01/2024 5:45 AM EST [facility] MCHC 29.8(L) 32.0 - 37.0 g/dL LAB HEMETOLOGY METHOD 04/01/2024 5:[address] [facility] RDW 15.5(H) 11.0 - 15.0 % LAB HEMETOLOGY METHOD 04/01/2024 5:[address] [facility] Platelets 420(H) 130 - 400 K/mcL LAB HEMETOLOGY METHOD 04/01/2024 5:45 AM EST [facility] MPV 8.9 7.0 - 11.0 FL LAB HEMETOLOGY METHOD 04/01/2024 5:[address] [facility] NRBC 0.0 <1.0 % LAB HEMETOLOGY METHOD 04/01/2024 5:[address] [facility] NRBC Absolute 0.00 <0.10 K/mcL LAB HEMETOLOGY METHOD 04/01/2024 5:[address] [facility] Blood Venous blood specimen / Unknown Venipuncture / Unknown 04/01/2024 4:58 AM EST 04/01/2024 5:32 AM EST us Rakesh Bullock MD LAB BLOOD ORDERABLES Final Resu lt [facility] [address] [place] [address], documented in this encounter Visit Diagnoses Diagnosis Osteomyelitis of vertebra, thoracolumbar region ([facility] V24, [facility] V28) Essential (primary) hypertension Unspecified essential hypertension documented in this encounter Additional Health Concerns Infection Onset Date Last Indicated Resolved Time MRSA 02/19/2024 06/13/2024 06/19/2024 12:0 3 PM EDT MRSA 06/27/2024 06/27/2024 07/01/2024 7:30 AM EDT MRSA 06/27/2024 06/27/2024 07/02/2024 1:23 PM EDT documented as of this encounter Care Teams Improvement Spec Relationship Specialty Start Date End Date Allyson Fairchild NP [address] [place] [address] PCP - General Family Medicine 02/18/24 documented as of this encounter
--- OUTSIDE RECORDS SUMMARY | 2024-12-03 09:52 | XMS_ITS | Encounter Summary ---
Author Organization [facility] Address [address] [place] [address] Care Team Providers Care Agricultural Sales Representative Name Role Phone Allyson Fairchild NP Primary Care Provider [phone] Encounter Details Date Type Department Care Team (Latest Contact Info) Description 03/26/2024 Lab Requisition [facility] - Main Lab 299 [facility] [place] [address] Rakesh Bullock MD [address] [place] [address] Sepsis due to methicillin resistant Staphylococcus aureus ([facility] V24, [facility] V28) Social History Tobacco Use Types Packs/Day [...] Info) Description 12/03/2024 12:45 PM EDT Appointment [facility] Pulmonary [address] [place] [phone] 12/12/2024 12:30 PM EST Office Visit [facility] Cardiology - [place] [address] [place] [address] Rodríguez Meza MD [address] [place] [address] 02/18/2025 10:00 AM EST Office Visit Infectious Disease - [place] [address] [place] [address] Daria Woodall MD [address] [place], [place] [phone] documented as of this encounter Procedures Procedure Name Priority Date/Time Associated Diagnosis Comments VANCOMYCIN, TROUGH STAT 03/26/2024 5: 00 AM EST Sepsis due to methicillin resistant Staphylococcus aureus ([facility]) documented in this encounter Results * Vancomycin, trough (03/26/2024 5:00 AM EST) Vancomycin Trough 20.0 10.0 - 20.0 mcg/mL LAB CHEMISTRY METHOD 03/26/2024 6:52 AM EST [facility] Blood Venous blood specimen / Unknown 03/26/2024 5:00 AM EST 03/26/2024 6:09 AM EST us Rakesh Bullock MD LAB BLOOD ORDERABLES Final Resu lt [facility] [address] [place] [address], [place] [phone] documented in this encounter Visit Diagnoses Diagnosis Sepsis due to methicillin resistant Staphylococcus aureus (CMS/HCC V24, CMS/HCC V28) documented in this encounter Additional Health Concerns Infection Onset Date Last Indicated Resolved Time MRSA 02/19/2024 06/13/2024 06/19/2024 12:0 3 PM EDT MRSA 06/27/2024 06/27/2024 07/01/2024 7:30 AM EDT MRSA 06/27/2024 06/27/2024 07/02/2024 1:23 PM EDT documented as of this encounter Care Teams Agricultural Sales Representative Relationship Specialty Start Date End Date Allyson Fairchild NP [address] [place] [address] PCP - General Family Medicine 02/18/24 documented as of this encounter
--- OUTSIDE RECORDS SUMMARY | 2024-12-03 09:52 | XMS_ITS | Encounter Summary ---
Author Organization [facility] Address [address] [place] [address] Care Team Providers Care Churn Driller Name Role Phone Allyson Fairchild NP Primary Care Provider [phone] Encounter Details Date Type Department Care Team (Latest Contact Info) Description 03/17/[address] [facility] - Main Lab 299 [facility] [place] [address] Rakesh Bullock MD [address] [place] [address] Essential (primary) hypertension; Osteomyelitis of vertebra, thoracolumbar region (CMS/HCC V24, [...] Info) Description 12/03/2024 12:45 PM EDT Appointment [facility] Pulmonary [address] [place] [address] 12/12/2024 12:30 PM EST Office Visit [facility] Cardiology - [place] [address] [place] [address] Rodríguez Meza MD [address] [place] [address] 02/18/2025 10:00 AM EST Office Visit Infectious Disease - [place] [address] [place] [address] Daria Woodall MD [address] [place], [place] [phone] documented as of this encounter Procedures Procedure Name Priority Date/Time Associated Diagnosis Comments SEDIMENTATION RATE Routine 03/18/2024 4: 36 AM EST Essential (primary) hypertension Osteomyelitis of vertebra, thoracolumbar region (CMS/HCC) COMPLETE BLOOD COUNT Routine 03/18/2024 4:36 AM EST Essential (primary) hypertension Osteomyelitis of vertebra, thoracolumbar region (CMS/HCC) C-REACTIVE PROTEIN Routine 03/18/2024 4: 36 AM EST Essential (primary) hypertension Osteomyelitis of vertebra, thoracolumbar region (CMS/HCC) VANCOMYCIN, TROUGH STAT 03/18/2024 4: 36 AM EST Essential (primary) hypertension Osteomyelitis of vertebra, thoracolumbar region (CMS/HCC) COMPREHENSIVE METABOLIC PANEL Routine 03/18/2024 4:36 AM EST Essential (primary) hypertension Osteomyelitis of vertebra, thoracolumbar region (CMS/HCC) documented in this encounter Results * Vancomycin, trough (03/18/2024 4:36 AM EST) Vancomycin Trough 18.1 10.0 - 20.0 mcg/mL LAB CHEMISTRY METHOD 03/18/2024 6:39 AM EST [facility] Blood Venous blood specimen / Unknown Venipuncture / Unknown 03/18/2024 4:36 AM EST 03/18/2024 6:06 AM EST us Rakesh Bullock MD LAB BLOOD ORDERABLES Final Resu lt Performing Organization Address City/[facility]/ZIP Co de Phone Number [facility] [address] [place] [address], [place] [phone] * (ABNORMAL) C-reactive protein (03/18/2024 4:36 AM EST) [facility] C-Reactive Protein 11.30(H) <=0.50 mg/dL LAB CHEMISTRY METHOD 03/18/2024 6:39 AM EST [facility] Blood Venous blood specimen / Unknown Venipuncture / Unknown 03/18/2024 4:36 AM EST 03/18/2024 6:06 AM EST us Rakesh Bullock MD LAB BLOOD ORDERABLES Final Resu lt Performing Organization Address City/[facility]/ZIP Co de Phone Number [facility] [address] [place] [address], [place] [phone] * (ABNORMAL) Sedimentation rate (03/18/2024 4:36 AM EST) Pathologist [facility] Sed Rate >130(H) 0 - 30 mm/hr LAB HEMETOLOGY METHOD 03/18/2024 6:33 AM EST [facility] Blood Venous blood specimen / Unknown Venipuncture / Unknown 03/18/2024 4:36 AM EST 03/18/2024 6:05 AM EST us Rakesh Blulock MD LAB BLOOD ORDERABLES Final Resu lt [facility] [address] [place] [address], [place] [phone] * (ABNORMAL) Comprehensive metabolic panel (03/18/2024 4:36 AM EST) Sodium 133 133 - 145 mmol/L LAB CHEMISTRY METHOD 03/18/2024 6:39 AM EST [facility] Potassium 4.7 3.5 - 5.5 mmol/L LAB CHEMISTRY METHOD 03/18/2024 6:39 AM [facility] Chloride 102 96 - 110 mmol/L LAB CHEMISTRY METHOD 03/18/2024 6:39 AM [facility] CO2 27 21 - 32 mmol/L LAB CHEMISTRY METHOD 03/18/2024 6:39 AM [facility] Anion Gap 4 3 - 11 LAB CHEMISTRY METHOD 03/18/2024 6:39 AM [facility] Glucose 96 70 - 100 mg/dL LAB CHEMISTRY METHOD 03/18/2024 6:39 AM [facility] BUN 13 5 - 25 mg/dL LAB CHEMISTRY METHOD 03/18/2024 6:39 AM [facility] Creatinine 0.54 0.50 - 1.10 mg/dL LAB CHEMISTRY METHOD 03/18/2024 6:39 AM [facility] eGFR 96 >=60 mL/min/1. 73m2 LAB CHEMISTRY METHOD 03/18/2024 6:39 AM [facility] Comment:Calculation based on the Chronic Kidney Disease Epidemiology Collaboration (CKD-EPI) equation refit without adjustment for race. BUN/Creatinine Ratio 24.1 LAB CHEMISTRY METHOD 03/18/2024 6:39 AM [facility] Calcium 9.5 8.5 - 10.5 mg/dL LAB CHEMISTRY METHOD 03/18/2024 6:39 AM [facility] AST (SGOT) 17 10 - 42 unit/L LAB CHEMISTRY METHOD 03/18/2024 6:39 AM [facility] ALT (SGPT) 17 10 - 60 unit/L LAB CHEMISTRY METHOD 03/18/2024 6:39 AM [facility] Alkaline Phosphatase 107 42 - 121 unit/L LAB CHEMISTRY METHOD 03/18/2024 6:39 AM [facility] Total Protein 6.9 6.0 - 8.0 g/dL LAB CHEMISTRY METHOD 03/18/2024 6:39 AM [facility] Albumin 2.5(L) 3.2 - 5.0 g/dL LAB CHEMISTRY METHOD 03/18/2024 6:39 AM [facility] Total Bilirubin 0.3 0.0 - 1.4 mg/dL LAB CHEMISTRY METHOD 03/18/2024 6:39 AM [facility] Blood Venous blood specimen / Unknown Venipuncture / Unknown 03/18/2024 4:36 AM EST 03/18/2024 6:06 AM EST us Rakesh Bullock MD LAB BLOOD ORDERABLES Final Resu lt [facility] [address] [place] [address], [place] [phone] * (ABNORMAL) Complete blood count (03/18/2024 4:36 AM EST) WBC 7.3 4.8 - 10.8 K/mcL LAB HEMETOLOGY METHOD 03/18/2024 6:22 AM [facility] RBC 3.40(L) 3.80 - 4.80 M/mcL LAB HEMETOLOGY METHOD 03/18/2024 6:22 AM [facility] Hemoglobin 9.5(L) 11.5 - 16.0 g/dL LAB HEMETOLOGY METHOD 03/18/2024 6:22 AM [facility] Hematocrit 30.1(L) 35.0 - 47.0 % LAB HEMETOLOGY METHOD 03/18/2024 6:22 AM [facility] MCV 87.5 79.0 - 98.0 FL LAB HEMETOLOGY METHOD 03/18/2024 6:22 AM [facility] MCH 27.6 27.0 - 32.0 pcg LAB HEMETOLOGY METHOD 03/18/2024 6:22 AM [facility] MCHC 31.6(L) 32.0 - 37.0 g/dL LAB HEMETOLOGY METHOD 03/18/2024 6:22 AM [facility] RDW 14.9 11.0 - 15.0 % LAB HEMETOLOGY METHOD 03/18/2024 6:22 AM [facility] Platelets 360 130 - 400 K/mcL LAB HEMETOLOGY METHOD 03/18/2024 6:22 AM EST [facility] MPV 9.3 7.0 - 11.0 FL LAB HEMETOLOGY METHOD 03/18/2024 6:22 AM [facility] NRBC 0.0 <1.0 % LAB HEMETOLOGY METHOD 03/18/2024 6:22 AM [facility] NRBC Absolute 0.00 <0.10 K/mcL LAB HEMETOLOGY METHOD 03/18/2024 6:22 AM [facility] Blood Venous blood specimen / Unknown Venipuncture / Unknown 03/18/2024 4:36 AM EST 03/18/2024 6:05 AM EST us Rakesh Bullock MD LAB BLOOD ORDERABLES Final Resu lt [facility] [address] [place] [address], documented in this encounter Visit Diagnoses Diagnosis Essential (primary) hypertension Unspecified essential hypertension Osteomyelitis of vertebra, thoracolumbar region ([facility] V24, [facility] V28) documented in this encounter Additional Health Concerns Infection Onset Date Last Indicated Resolved Time MRSA 02/19/2024 06/13/2024 06/19/2024 12:0 3 PM EDT MRSA 06/27/2024 06/27/2024 07/01/2024 7:30 AM EDT MRSA 06/27/2024 06/27/2024 07/02/2024 1:23 PM EDT documented as of this encounter Care Teams Churn Driller Relationship Specialty Start Date End Date Allyson Fairchild NP [address] [place] [address] PCP - General Family Medicine 02/18/24 documented as of this encounter
--- OUTSIDE RECORDS SUMMARY | 2024-12-03 09:52 | XMS_ITS | Encounter Summary ---
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; Fusion of spine, thoracic region; Essential (primary) hypertension; Kissing spine, thoracic region Social History Tobacco Use Types Packs/Day Years [...] Info) Description 12/03/2024 12:45 PM EDT Appointment [facility] Pulmonary [address] [place] [address] 12/12/2024 12:30 PM EST Office Visit [facility] Cardiology [facility] [address] [place] [address] Rodríguez Meza MD [address] [place], [place] [phone] 02/18/2025 10:00 AM EST Office Visit Infectious Disease [facility] [address] [place] [phone] Daria Woodall MD [address] [facility] [address] [place] [address] documented as of this encounter Procedures Procedure Name Priority Date/Time Associated Diagnosis Comments COMPLETE BLOOD COUNT Routine 07/24/2024 6:22 AM EDT 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, thoracic region Essential (primary) hypertension Kissing spine, thoracic region BASIC METABOLIC PANEL Routine 07/24/2024 6:22 AM EDT 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, thoracic region Essential (primary) hypertension Kissing spine, thoracic region documented in this encounter Results * (ABNORMAL) Complete blood count (07/24/2024 6:22 AM EDT) WBC 4.8 4.8 - 10.8 K/mcL LAB HEMETOLOGY METHOD 07/24/2024 8:57 AM [facility] RBC 3.60(L) 3.80 - 4.80 M/mcL LAB HEMETOLOGY METHOD 07/24/2024 8:57 AM [facility] Hemoglobin 9.5(L) 11.5 - 16.0 g/dL LAB HEMETOLOGY METHOD 07/24/2024 8:57 AM [facility] Hematocrit 31.3(L) 35.0 - 47.0 % LAB HEMETOLOGY METHOD 07/24/2024 8:57 AM [facility] MCV 86.2 79.0 - 98.0 FL LAB HEMETOLOGY METHOD 07/24/2024 8:57 AM [facility] MCH 26.2(L) 27.0 - 32.0 pcg LAB HEMETOLOGY METHOD 07/24/2024 8:57 AM [facility] MCHC 30.4(L) 32.0 - 37.0 g/dL LAB HEMETOLOGY METHOD 07/24/2024 8:57 AM EDT [facility] RDW 14.2 11.0 - 15.0 % LAB HEMETOLOGY METHOD 07/24/2024 8:57 AM EDT [facility] Platelets 236 130 - 400 K/mcL LAB HEMETOLOGY METHOD 07/24/2024 8:57 AM EDT [facility] MPV 9.9 7.0 - 11.0 FL LAB HEMETOLOGY METHOD 07/24/2024 8:57 AM EDT [facility] NRBC 0.0 <1.0 % LAB HEMETOLOGY METHOD 07/24/2024 8:57 AM EDT [facility] NRBC Absolute 0.00 <0.10 K/mcL LAB HEMETOLOGY METHOD 07/24/2024 8:57 AM EDT [facility] Blood Venous blood specimen / Unknown Venipuncture / Unknown 07/24/2024 6:22 AM EDT 07/24/2024 8:41 AM EDT us Rakesh Bullock MD LAB BLOOD ORDERABLES Final Resu lt [facility] [address] [place] [address], * Basic metabolic panel (07/24/2024 6:22 AM EDT) Sodium 141 133 - 145 mmol/L LAB CHEMISTRY METHOD 07/24/2024 9:33 AM EDT [facility] Potassium 3.9 3.5 - 5.5 mmol/L LAB CHEMISTRY METHOD 07/24/2024 9:33 AM EDT [facility] Chloride 107 96 - 110 mmol/L LAB CHEMISTRY METHOD 07/24/2024 9:33 AM EDT [facility] CO2 26 21 - 32 mmol/L LAB CHEMISTRY METHOD 07/24[facility]24 [facility] An[facility] Gap 8 3 - 11 LAB CHEMISTRY METHOD 07/24/2024 9:33 AM [facility] Glucose 85 70 - 100 mg/dL LAB CHEMISTRY METHOD 07/24/2024 9:33 AM [facility] BUN 13 5 - 25 mg/dL LAB CHEMISTRY METHOD 07/24/2024 9:33 AM [facility] Creatinine 0.89 0.50 - 1.10 mg/dL LAB CHEMISTRY METHOD 07/24/2024 9:33 AM [facility] eGFR 67 >=60 mL/min/1. 73m2 LAB CHEMISTRY METHOD 07/24/2024 9:33 AM [facility] Comment:Calculation based on the Chronic Kidney Disease Epidemiology Collaboration (CKD-EPI) equation refit without adjustment for race. 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
--- OUTSIDE RECORDS SUMMARY | 2024-12-03 09:52 | XMS_ITS | Encounter Summary ---
Author Organization [facility] Address [address] [place] [address] Care Team Providers Care Deep Fat Fry Cook Name Role Phone Allyson Fairchild NP Primary Care Provider [phone] Encounter Details Date Type Department Care Team (Latest Contact Info) Description 04/07/2024 Lab Requisition [facility] - Main Lab 299 [facility] [place] [address] Rakesh Bullock MD [address] [place] [address] Osteomyelitis of vertebra, thoracolumbar region [...] Info) Description 12/03/2024 12:45 PM EDT Appointment [facility] Pulmonary [address] [place] [address] 12/12/2024 12:30 PM EST Office Visit [facility] Cardiology - [place] [address] [place] [address] Rodríguez Meza MD [address] [place] [address] 02/18/2025 10:00 AM EST Office Visit Infectious Disease - [place] [address] [place] [address] Daria Woodall MD [address] [place], [place] [phone] documented as of this encounter Procedures Procedure Name Priority Date/Time Associated Diagnosis Comments SEDIMENTATION RATE Routine 04/08/2024 5: 06 AM EST Osteomyelitis of vertebra, thoracolumbar region (CMS/HCC) Essential (primary) hypertension COMPLETE BLOOD COUNT Routine 04/08/2024 5:06 AM EST Osteomyelitis of vertebra, thoracolumbar region (CMS/HCC) Essential (primary) hypertension C-REACTIVE PROTEIN Routine 04/08/2024 5: 06 AM EST Osteomyelitis of vertebra, thoracolumbar region (CMS/HCC) Essential (primary) hypertension VANCOMYCIN, TROUGH Routine 04/08/2024 5: 06 AM EST Osteomyelitis of vertebra, thoracolumbar region (CMS/HCC) Essential (primary) hypertension COMPREHENSIVE METABOLIC PANEL Routine 04/08/2024 5:06 AM EST Osteomyelitis of vertebra, thoracolumbar region (CMS/HCC) Essential (primary) hypertension documented in this encounter Results * Vancomycin, trough (04/08/2024 5:06 AM EST) Vancomycin Trough 15.1 10.0 - 20.0 mcg/mL LAB CHEMISTRY METHOD 04/08/2024 7:17 AM EST [facility] Blood Venous blood specimen / Unknown Venipuncture / Unknown 04/08/2024 5:06 AM EST 04/08/2024 6:47 AM EST us Rakesh Bullock MD LAB BLOOD ORDERABLES Final Resu lt Performing Organization Address City/[facility]/ZIP Co de Phone Number [facility] [address] [place] [address], [place] [phone] * (ABNORMAL) C-reactive protein (04/08/2024 5:06 AM EST) [facility] C-Reactive Protein 2.32(H) <=0.50 mg/dL LAB CHEMISTRY METHOD 04/08/2024 7:19 AM EST [facility] Blood Venous blood specimen / Unknown Venipuncture / Unknown 04/08/2024 5:06 AM EST 04/08/2024 6:47 AM EST us Rakesh Bullock MD LAB BLOOD ORDERABLES Final Resu lt Performing Organization Address City/[facility]/ZIP Co de Phone Number [facility] [address] [place] [address], [place] [phone] * (ABNORMAL) Sedimentation rate (04/08/2024 5:06 AM EST) Pathologist [facility] Sed Rate 83(H) 0 - 30 mm/hr LAB HEMETOLOGY METHOD 04/08/2024 7:17 AM EST [facility] Blood Venous blood specimen / Unknown Venipuncture / Unknown 04/08/2024 5:06 AM EST 04/08/2024 6:47 AM EST us Rakesh Bullock MD LAB BLOOD ORDERABLES Final Resu lt [facility] [address] [place] [address], [place] [phone] * (ABNORMAL) Comprehensive metabolic panel (04/08/2024 5:06 AM EST) Sodium 138 133 - 145 mmol/L LAB CHEMISTRY METHOD 04/08/2024 7:19 AM [facility] Potassium 4.3 3.5 - 5.5 mmol/L LAB CHEMISTRY METHOD 04/08/2024 7:19 AM [facility] Chloride 108 96 - 110 mmol/L LAB CHEMISTRY METHOD 04/08/2024 7:19 AM [facility] CO2 26 21 - 32 mmol/L LAB CHEMISTRY METHOD 04/08/2024 7:19 AM [facility] Anion Gap 4 3 - 11 LAB CHEMISTRY METHOD 04/08/2024 7:19 AM [facility] Glucose 85 70 - 100 mg/dL LAB CHEMISTRY METHOD 04/08/2024 7:19 AM [facility] BUN 17 5 - 25 mg/dL LAB CHEMISTRY METHOD 04/08/2024 7:19 AM [facility] Creatinine 0.56 0.50 - 1.10 mg/dL LAB CHEMISTRY METHOD 04/08/2024 7:19 AM [facility] eGFR 95 >=60 mL/min/1. 73m2 LAB CHEMISTRY METHOD 04/08/2024 7:19 AM [facility] Comment:Calculation based on the Chronic Kidney Disease Epidemiology Collaboration (CKD-EPI) equation refit without adjustment for race. BUN/Creatinine Ratio 30.4 LAB CHEMISTRY METHOD 04/08/2024 7:19 AM [facility] Calcium 9.1 8.5 - 10.5 mg/dL LAB CHEMISTRY METHOD 04/08/2024 7:19 AM [facility] AST (SGOT) 24 10 - 42 unit/L LAB CHEMISTRY METHOD 04/08/2024 7:19 AM [facility] ALT (SGPT) 20 10 - 60 unit/L LAB CHEMISTRY METHOD 04/08/2024 7:19 AM [facility] Alkaline Phosphatase 100 42 - 121 unit/L LAB CHEMISTRY METHOD 04/08/2024 7:19 AM [facility] Total Protein 6.5 6.0 - 8.0 g/dL LAB CHEMISTRY METHOD 04/08/2024 7:19 AM [facility] Albumin 2.7(L) 3.2 - 5.0 g/dL LAB CHEMISTRY METHOD 04/08/2024 7:19 AM [facility] Total Bilirubin 0.3 0.0 - 1.4 mg/dL LAB CHEMISTRY METHOD 04/08/2024 7:19 AM [facility] Blood Venous blood specimen / Unknown Venipuncture / Unknown 04/08/2024 5:06 AM EST 04/08/2024 6:47 AM EST us Rakesh Bullock MD LAB BLOOD ORDERABLES Final Resu lt [facility] [address] [place] [address], [place] [phone] * (ABNORMAL) Complete blood count (04/08/2024 5:06 AM EST) WBC 5.6 4.8 - 10.8 K/mcL LAB HEMETOLOGY METHOD 04/08/2024 7:11 AM [facility] RBC 3.20(L) 3.80 - 4.80 M/mcL LAB HEMETOLOGY METHOD 04/08/2024 7:11 AM [facility] Hemoglobin 8.9(L) 11.5 - 16.0 g/dL LAB HEMETOLOGY METHOD 04/08/2024 7:11 AM EST [facility] Hematocrit 29.3(L) 35.0 - 47.0 % LAB HEMETOLOGY METHOD 04/08/2024 7:11 AM [facility] MCV 90.4 79.0 - 98.0 FL LAB HEMETOLOGY METHOD 04/08/2024 7:11 AM [facility] MCH 27.5 27.0 - 32.0 pcg LAB HEMETOLOGY METHOD 04/08/2024 7:11 AM [facility] MCHC 30.4(L) 32.0 - 37.0 g/dL LAB HEMETOLOGY METHOD 04/08/2024 7:11 AM [facility] RDW 15.9(H) 11.0 - 15.0 % LAB HEMETOLOGY METHOD 04/08/2024 7:11 AM [facility] Platelets 383 130 - 400 K/mcL LAB HEMETOLOGY METHOD 04/08/2024 7:11 AM [facility] MPV 9.4 7.0 - 11.0 FL LAB HEMETOLOGY METHOD 04/08/2024 7:11 AM [facility] NRBC 0.0 <1.0 % LAB HEMETOLOGY METHOD 04/08/2024 7:11 AM [facility] NRBC Absolute 0.00 <0.10 K/mcL LAB HEMETOLOGY METHOD 04/08/2024 7:11 AM [facility] Blood Venous blood specimen / Unknown Venipuncture / Unknown 04/08/2024 5:06 AM EST 04/08/2024 6:47 AM EST us Rakesh Bullock MD LAB BLOOD ORDERABLES Final Resu lt [facility] [address] [place] [address], documented in this encounter Visit Diagnoses Diagnosis Osteomyelitis of vertebra, thoracolumbar region ([facility] V24, [facility] V28) Essential (primary) hypertension Unspecified essential hypertension documented in this encounter Additional Health Concerns Infection Onset Date Last Indicated Resolved Time MRSA 02/19/2024 06/13/2024 06/19/2024 12:0 3 PM EDT MRSA 06/27/2024 06/27/2024 07/01/2024 7:30 AM EDT MRSA 06/27/2024 06/27/2024 07/02/2024 1:23 PM EDT documented as of this encounter Care Teams Deep Fat Fry Cook Relationship Specialty Start Date End Date Allyson Fairchild NP [address] [place] [address] PCP - General Family Medicine 02/18/24 documented as of this encounter
--- OUTSIDE RECORDS SUMMARY | 2024-12-03 09:53 | XMS_ITS | Encounter Summary ---
Author Organization [facility] Address [address] [place] [address] Care Team Providers Care Pastry Wrapper Name Role Phone Allyson Fairchild NP Primary Care Provider [phone] Encounter Details Date Type Department Care Team (Latest Contact Info) Description 03/01/2024 Lab Requisition [facility] - Main Lab [address] [facility] [place] [address] Rakesh Bullock MD [address] [place] [address] Sepsis due to methicillin resistant Staphylococcus aureus ([facility] V24, [facility] V28); Methicillin resistant Staphylococcus aureus infection, unspecified site; [...] [facility] Pulmonary [address] [place] [address] 12/12/2024 12:30 PM EST Office Visit [facility] Cardiology - [place] [address] [place] [address] Rodríguez Meza MD [address] [place], [place] [phone] 02/18/2025 10:00 AM EST Office Visit Infectious Disease - [place] [address] [place] [address] Daria Woodall MD [address] [place], [place] [phone] documented as of this encounter Procedures Procedure Name Priority Date/Time Associated Diagnosis Comments COMPLETE BLOOD COUNT Routine 03/03/2024 9:00 AM EST Sepsis due to methicillin resistant Staphylococcus aureus (CMS/HCC) Methicillin resistant Staphylococcus aureus infection, unspecified site Essential (primary) hypertension VANCOMYCIN, TROUGH STAT 03/03/2024 9: 00 AM EST Sepsis due to methicillin resistant Staphylococcus aureus (CMS/HCC) Methicillin resistant Staphylococcus aureus infection, unspecified site Essential (primary) hypertension COMPREHENSIVE METABOLIC PANEL Routine 03/03/2024 9:00 AM EST Sepsis due to methicillin resistant Staphylococcus aureus (CMS/HCC) Methicillin resistant Staphylococcus aureus infection, unspecified site Essential (primary) hypertension documented in this encounter Results * Vancomycin, trough (03/03/2024 9:00 AM EST) Vancomycin Trough 19.1 10.0 - 20.0 mcg/mL LAB CHEMISTRY METHOD 03/03/2024 11:27 AM EST [facility] Blood Venous blood specimen / Unknown 03/03/2024 9:00 AM EST 03/03/2024 10:16 AM EST us Rakesh Bullock MD LAB BLOOD ORDERABLES Final Resu lt [facility] [address] [place] [address], * (ABNORMAL) Comprehensive metabolic panel (03/03/2024 9:00 AM EST) Sodium 132(L) 133 - 145 mmol/L LAB CHEMISTRY METHOD 03/03/2024 11:29 AM [facility] Potassium 4.1 3.5 - 5.5 mmol/L LAB CHEMISTRY METHOD 03/03/2024 11:29 AM [facility] Chloride 102 96 - 110 mmol/L LAB CHEMISTRY METHOD 03/03/2024 11:29 AM [facility] CO2 23 21 - 32 mmol/L LAB CHEMISTRY METHOD 03/03/2024 11:29 AM [facility] Anion Gap 7 3 - 11 LAB CHEMISTRY METHOD 03/03/2024 11:29 AM [facility] Glucose 97 70 - 100 mg/dL LAB CHEMISTRY METHOD 03/03/2024 11:29 AM [facility] BUN 10 5 - 25 mg/dL LAB CHEMISTRY METHOD 03/03/2024 11:29 AM [facility] Creatinine 0.46(L) 0.50 - 1.10 mg/dL LAB CHEMISTRY METHOD 03/03/2024 11:29 AM [facility] eGFR 99 >=60 mL/min/1. 73m2 LAB CHEMISTRY METHOD 03/03/2024 11:29 AM [facility] Comment:Calculation based on the Chronic Kidney Disease Epidemiology Collaboration (CKD-EPI) equation refit without adjustment for race. BUN/Creatinine Ratio 21.7 LAB CHEMISTRY METHOD 03/03/2024 11:29 AM [facility] Calcium 9.3 8.5 - 10.5 mg/dL LAB CHEMISTRY METHOD 03/03/2024 11:29 AM [facility] AST (SGOT) 69(H) 10 - 42 unit/L LAB CHEMISTRY METHOD 03/03/2024 11:29 AM [facility] ALT (SGPT) 102(H) 10 - 60 unit/L LAB CHEMISTRY METHOD 03/03/2024 11:29 AM [facility] Alkaline Phosphatase 92 42 - 121 unit/L LAB CHEMISTRY METHOD 03/03/2024 11:29 AM [facility] Total Protein 6.9 6.0 - 8.0 g/dL LAB CHEMISTRY METHOD 03/03/2024 11:29 AM [facility] Albumin 2.3(L) 3.2 - 5.0 g/dL LAB CHEMISTRY METHOD 03/03/2024 11:29 AM [facility] Total Bilirubin 0.3 0.0 - 1.4 mg/dL LAB CHEMISTRY METHOD 03/03/2024 11:29 AM [facility] Blood Venous blood specimen / Unknown 03/03/2024 9:00 AM EST 03/03/2024 10:16 AM EST us Rakesh Bullock MD LAB BLOOD ORDERABLES Final Resu lt [facility] [address] [place] [address], * (ABNORMAL) Complete blood count (03/03/2024 9:00 AM EST) WBC 7.9 4.8 - 10.8 K/mcL LAB HEMETOLOGY METHOD 03/03/2024 10:31 AM [facility] RBC 3.10(L) 3.80 - 4.80 M/mcL LAB HEMETOLOGY METHOD 03/03/2024 10:31 AM [facility] Hemoglobin 9.0(L) 11.5 - 16.0 g/dL LAB HEMETOLOGY METHOD 03/03/2024 10:31 AM [facility] Hematocrit 28.2(L) 35.0 - 47.0 % LAB HEMETOLOGY METHOD 03/03/2024 10:31 AM [facility] MCV 92.2 79.0 - 98.0 FL LAB HEMETOLOGY METHOD 03/03/2024 10:31 AM [facility] MCH 29.4 27.0 - 32.0 pcg LAB HEMETOLOGY METHOD 03/03/2024 10:31 AM [facility] MCHC 31.9(L) 32.0 - 37.0 g/dL LAB HEMETOLOGY METHOD 03/03/2024 10:31 AM [facility] RDW 14.6 11.0 - 15.0 % LAB HEMETOLOGY METHOD 03/03/2024 10:31 AM [facility] Platelets 544(H) 130 - 400 K/mcL LAB HEMETOLOGY METHOD 03/03/2024 10:31 AM [facility] MPV 9.1 7.0 - 11.0 FL LAB HEMETOLOGY METHOD 03/03/2024 10:31 AM [facility] NRBC 0.0 <1.0 % LAB HEMETOLOGY METHOD 03/03/2024 10:31 AM [facility] NRBC Absolute 0.00 <0.10 K/mcL LAB HEMETOLOGY METHOD 03/03/2024 10:31 AM [facility] Blood Venous blood specimen / Unknown 03/03/2024 9:00 AM EST 03/03/2024 10:16 AM EST Rakesh Bullock MD LAB BLOOD ORDERABLES [facility] [address] [place] [address], documented in this encounter Visit Diagnoses Diagnosis Sepsis due to methicillin resistant Staphylococcus aureus ([facility] V24, [facility] V28) Methicillin resistant Staphylococcus aureus infection, unspecified site Essential (primary) hypertension Unspecified essential hypertension documented in this encounter Additional Health Concerns Infection Onset Date Last Indicated Resolved Time MRSA 02/19/2024 06/13/2024 06/19/2024 12:0 3 PM EDT MRSA 06/27/2024 06/27/2024 07/01/2024 7:30 AM EDT MRSA 06/27/2024 06/27/2024 07/02/2024 1:23 PM EDT documented as of this encounter Care Teams Pastry Wrapper Relationship Specialty Start Date End Date Allyson Fairchild NP [address] [address] PCP - General Family Medicine 02/18/24 documented as of this encounter
--- OUTSIDE RECORDS SUMMARY | 2024-12-03 09:53 | XMS_ITS | Encounter Summary ---
Author Organization [facility] Address [address] [place] [address] Care Team Providers Care Statistical Technician Name Role Phone Allyson Fairchild NP Primary Care Provider [phone] Encounter Details Date Type Department Care Team (Latest Contact Info) Description 07/15/2024 Lab Requisition [facility] - Main Lab 299 [facility] [place] [address] Rakesh Bullock MD [address] [place] [address] Osteomyelitis of vertebra, thoracic region [...] Info) Description 12/03/2024 12:45 PM EDT Appointment [facility] Pulmonary [address] [place] [address] 12/12/2024 12:30 PM EST Office Visit [facility] Cardiology - [place] [address] [place] [phone] Rodríguez Meza MD [address] [place], [place] [phone] 02/18/2025 10:00 AM EST Office Visit Infectious Disease [facility] [address] [place] [address] aDria Woodall MD [address] [place] [address] documented as of this encounter Procedures Procedure Name Priority Date/Time Associated Diagnosis Comments VANCOMYCIN, TROUGH Routine 07/15/2024 11 :05 AM EDT Osteomyelitis of vertebra, thoracic region ([facility] V24, [facility] V28) documented in this encounter Results * Vancomycin, trough (07/15/2024 11:05 AM EDT) Vancomycin Trough 16.7 10.0 - 20.0 mcg/mL LAB CHEMISTRY METHOD 07/15/2024 1:21 PM EDT [facility] Blood Venous blood specimen / Unknown Venipuncture / Unknown 07/15/2024 11:05 AM EDT 07/15/2024 11:32 AM EDT us Rakesh Bullock MD LAB BLOOD ORDERABLES Final Resu lt [facility] [address] [place] [address], [place] [phone] documented in this encounter Visit Diagnoses Diagnosis Osteomyelitis of vertebra, thoracic region ([facility] V24, [facility] V28) documented in this encounter Care Teams Statistical Technician Relationship Specialty Start Date End Date Allyson Fairchild NP [address] [address] PCP - General Family Medicine 02/18/24 documented as of this encounter
--- OUTSIDE RECORDS SUMMARY | 2024-12-03 09:53 | XMS_ITS | Encounter Summary ---
Author Organization [facility] Address [address] [place] [address] Care Team Providers Care Business Intelligence Architect Name Role Phone Allyson Fairchild NP Primary Care Provider [phone] Encounter Details Date Type Department Care Team (Latest Contact Info) Description 04/22/2024 Lab Requisition [facility] - Main Lab [address] [facility] [place] [address] Rakesh Bullock MD [address] [place] [address] Essential (primary) hypertension; Osteomyelitis of [...] [facility] Pulmonary [address] [place] [phone] 12/12/2024 12:30 PM EST Office Visit [facility] Cardiology - [place] [address] [place] [address] Rodríguez Meza MD [address] [place] [address] 02/18/2025 10:00 AM EST Office Visit Infectious Disease - [place] [address] [place] [address] Daria Woodall MD [address] [place], [place] [phone] documented as of this encounter Visit Diagnoses Diagnosis Essential (primary) hypertension Unspecified essential hypertension Osteomyelitis of vertebra, thoracolumbar region ([facility] V24, [facility] V28) documented in this encounter Additional Health Concerns Infection Onset Date Last Indicated Resolved Time MRSA 02/19/2024 06/13/2024 06/19/2024 12:0 3 PM EDT MRSA 06/27/2024 06/27/2024 07/01/2024 7:30 AM EDT MRSA 06/27/2024 06/27/2024 07/02/2024 1:23 PM EDT documented as of this encounter Care Teams Business Intelligence Architect Relationship Specialty Start Date End Date Allyson Fairchild NP [address] [address] PCP - General Family Medicine 02/18/24 documented as of this encounter
--- OUTSIDE RECORDS SUMMARY | 2024-12-03 09:53 | XMS_ITS | Encounter Summary ---
Author Organization [facility] Address [address] [place] [address] Care Team Providers Care Production Analyst Name Role Phone Allyson Fairchild NP Primary Care Provider [phone] Encounter Details Date Type Department Care Team (Late st Contact Info) Description 07/19/2024 Lab Requisition [facility] - Main Lab 299 [facility] [place] [address] Rakehs Bullock MD [address] [place] [address] Encounter for other orthopedic aftercare [...] Description 12/03/2024 12:45 PM EDT Appointment [facility] Pulmonary [address] [place] [address] 12/12/2024 12:30 PM EST Office Visit [facility] Cardiology - [place] [address] [place] [phone] Rodríguez Meza MD [address] [place] [address] 02/18/2025 10:00 AM EST Office Visit Infectious Disease [facility] [address] [place] [address] Daria Woodall MD [address] [place] [address] [phone] (work) documented as of this encounter Procedures Procedure Name Priority Date/Time Associated Diagnosis Comments BASIC METABOLIC PANEL Routine 07/19/2024 8:17 AM EDT Encounter for other orthopedic aftercare documented in this encounter Results * Basic metabolic panel (07/19/2024 8:17 AM EDT) Sodium 137 133 - 145 mmol/L LAB CHEMISTRY METHOD 07/19/2024 12:58 PM [facility] Potassium 4.1 3.5 - 5.5 mmol/L LAB CHEMISTRY METHOD 07/19/2024 12:58 PM [facility] Chloride 103 96 - 110 mmol/L LAB CHEMISTRY METHOD 07/19/2024 12:58 PM [facility] CO2 29 21 - 32 mmol/L LAB CHEMISTRY METHOD 07/19/2024 12:58 PM [facility] Anion Gap 5 3 - 11 LAB CHEMISTRY METHOD 07/19/2024 12:58 PM [facility] Glucose 84 70 - 100 mg/dL LAB CHEMISTRY METHOD 07/19/2024 12:58 PM [facility] BUN 14 5 - 25 mg/dL LAB CHEMISTRY METHOD 07/19/2024 12:58 PM [facility] Creatinine 0.91 0.50 - 1.10 mg/dL LAB CHEMISTRY METHOD 07/19/2024 12:58 PM [facility] eGFR 66 >=60 mL/min/1. 73m2 LAB CHEMISTRY METHOD 07/19/2024 12:58 PM [facility] Comment:Calculation based on the Chronic Kidney Disease Epidemiology Collaboration (CKD-EPI) equation refit without adjustment for race. BUN/Creatinine Ratio 15.4 LAB CHEMISTRY METHOD 07/19/2024 12:58 PM [facility] Calcium 9.4 8.5 - 10.5 mg/dL LAB CHEMISTRY METHOD 07/19/2024 12:58 PM EDT [facility] Blood Venous blood specimen / Unknown Venipuncture / Unknown 07/19/2024 8:17 AM EDT 07/19/2024 12:17 PM EDT us Rakesh Bullock MD LAB BLOOD ORDERABLES Final Resu lt [facility] [address] [place] [address], documented in this encounter Visit Diagnoses Diagnosis Encounter for other orthopedic aftercare documented in this encounter Care Teams Production Analyst Relationship Specialty Start Date End Date Allyson Fairchild NP [address] [place] [address] PCP - General Family Medicine 02/18/24 documented as of this encounter
--- OUTSIDE RECORDS SUMMARY | 2024-12-03 09:53 | XMS_ITS | Encounter Summary ---
Author Organization [facility] Address [address] [place] [address] Care Team Providers Care Sawmill Relief Worker Name Role Phone Allyson Fairchild NP Primary Care Provider [phone] Encounter Details Date Type Department Care Team (Latest Contact Info) Description 07/09/2024 Lab Requisition [facility] - Main Lab 299 [facility] [place] [address] Rakesh Bullock MD [address] [place] [address] Methicillin resistant Staphylococcus aureus infection [...] Info) Description 12/03/2024 12:45 PM EDT Appointment [facility] Pulmonary [address] [place] [address] 12/12/2024 12:30 PM EST Office Visit [facility] Cardiology - [place] [address] [place] [phone] Rodríguez Meza MD [address] [place], [place] [phone] 02/18/2025 10:00 AM EST Office Visit Infectious Disease [facility] [address] [place] [address] Daria Woodall MD [address] [email or web address] [address] [place] [address] documented as of this encounter Procedures Procedure Name Priority Date/Time Associated Diagnosis Comments COMPLETE BLOOD COUNT Routine 07/10/2024 6:52 AM EDT 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, thoracic region Essential (primary) hypertension Osteomyelitis of vertebra, thoracic region (CMS/HCC V24, CMS/[facility] V28) BASIC METABOLIC PANEL Routine 07/10/2024 6:52 AM EDT 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, thoracic region Essential (primary) hypertension Osteomyelitis of vertebra, thoracic region (CMS/HCC V24, [facility] V28) documented in this encounter Results * Basic metabolic panel (07/10/2024 6:52 AM EDT) Sodium 137 133 - 145 mmol/L LAB CHEMISTRY METHOD 07/10/2024 8:51 AM [facility] Potassium 4.4 3.5 - 5.5 mmol/L LAB CHEMISTRY METHOD 07/10/2024 8:51 AM [facility] Chloride 102 96 - 110 mmol/L LAB CHEMISTRY METHOD 07/10/2024 8:51 AM [facility] CO2 31 21 - 32 mmol/L LAB CHEMISTRY METHOD 07/10/2024 8:51 AM [facility] Anion Gap 4 3 - 11 LAB CHEMISTRY METHOD 07/10/2024 8:51 AM [facility] Glucose 90 70 - 100 mg/dL LAB CHEMISTRY METHOD 07/10/2024 8:51 AM [facility] BUN 12 5 - 25 mg/dL LAB CHEMISTRY METHOD 07/10/2024 8:51 AM [facility] Creatinine 0.92 0.50 - 1.10 mg/dL LAB CHEMISTRY METHOD 07/10/2024 8:51 AM EDT [facility] eGFR 65 >=60 mL/min/1. 73m2 LAB CHEMISTRY METHOD 07/10/2024 8:51 AM T [facility] Comment:Calculation based on the Chronic Kidney Disease Epidemiology Collaboration (CKD-EPI) equation refit without adjustment for race. BUN/Creatinine Ratio 13.0 LAB CHEMISTRY METHOD 07/10/2024 8:51 AM T [facility] Calcium 9.7 8.5 - 10.5 mg/dL LAB CHEMISTRY METHOD 07/10/2024 8:51 AM [facility] Blood Venous blood specimen / Unknown Venipuncture / Unknown 07/10/2024 6:52 AM EDT 07/10/2024 7:24 AM EDT Rakesh Bullock MD LAB BLOOD ORDERABLES Final Resu lt [facility] [address] [place] [address], [place] [phone] * (ABNORMAL) Complete blood count (07/10/2024 6:52 AM EDT) WBC 7.3 4.8 - 10.8 K/[facility] LAB HEMETOLOGY METHOD 07/10/2024 8:06 AM [facility] RBC 3.60(L) 3.80 - 4.80 M/[facility] LAB HEMETOLOGY METHOD 07/10/2024 8:06 AM [facility] Hemoglobin 9.5(L) 11.5 - 16.0 g/dL LAB HEMETOLOGY METHOD 07/10/2024 8:06 AM [facility] Hematocrit 31.6(L) 35.0 - 47.0 % LAB HEMETOLOGY METHOD 07/10/2024 8:06 AM [facility] MCV 87.3 79.0 - 98.0 FL LAB HEMETOLOGY METHOD 07/10/2024 8:06 AM EDT [facility] MCH 26.2(L) 27.0 - 32.0 pcg LAB HEMETOLOGY METHOD 07/10/2024 8:06 AM T [facility] MCHC 30.1(L) 32.0 - 37.0 g/dL LAB HEMETOLOGY METHOD 07/10/2024 8:06 AM EDT [facility] RDW 13.9 11.0 - 15.0 % LAB HEMETOLOGY METHOD 07/10/2024 8:06 AM T [facility] Platelets 320 130 - 400 K/mcL LAB HEMETOLOGY METHOD 07/10/2024 8:06 AM T [facility] MPV 9.2 7.0 - 11.0 FL LAB HEMETOLOGY METHOD 07/10/2024 8:06 AM EDT [facility] NRBC 0.0 <1.0 % LAB HEMETOLOGY METHOD 07/10/2024 8:06 AM [facility] NRBC Absolute 0.00 <0.10 K/mcL LAB HEMETOLOGY METHOD 07/10/2024 8:06 AM [facility] Blood Venous blood specimen / Unknown Venipuncture / Unknown 07/10/2024 6:52 AM EDT 07/10/2024 7:24 AM EDT us Rakesh Bullock MD LAB BLOOD ORDERABLES Final Resu lt [facility] [address] [place] [address], documented in this encounter Visit Diagnoses Diagnosis 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, thoracic region Essential (primary) hypertension Unspecified essential hypertension Osteomyelitis of vertebra, thoracic region (CMS/HCC V24, CMS/HCC V28) documented in this encounter Care Teams Sawmill Relief Worker Relationship Specialty Start Date End Date Allyson Fairchild NP [address] [place] [address] PCP - General Family Medicine 02/18/24 documented as of this encounter
--- OUTSIDE RECORDS SUMMARY | 2024-12-03 09:53 | XMS_ITS | Encounter Summary ---
Author Organization [facility] Address [address] [place] [address] Care Team Providers Care Tailor'S Aide Name Role Phone Allyson Fairchild NP Primary Care Provider [phone] Encounter Details Date Type Department Care Team (Latest Contact Info) Description 03/11/2024 Lab Requisition [facility] - Main Lab 299 [facility] [place] [place] [address] Rakesh Bullock MD [address] [place] [address] Acute respiratory failure with hypoxia (CMS/HCC V24, CMS/HCC V28); Osteomyelitis of vertebra, thoracolumbar region (CMS/HCC V24, [...] Info) Description 12/03/2024 12:45 PM EDT Appointment [facility] Pulmonary [address] [place] [address] 12/12/2024 12:30 PM EST Office Visit [facility] Cardiology - [place] [address] [place] [address] Rodríguez Meza MD [address] [place] [address] 02/18/2025 10:00 AM EST Office Visit Infectious Disease - [place] [address] [place] [address] Daria Woodall MD [address] [place] [address] documented as of this encounter Procedures Procedure Name Priority Date/Time Associated Diagnosis Comments SEDIMENTATION RATE Routine 03/11/2024 5: 08 AM EST Acute respiratory failure with hypoxia (CMS/HCC) Osteomyelitis of vertebra, thoracolumbar region (CMS/HCC) COMPLETE BLOOD COUNT Routine 03/11/2024 5:08 AM EST Acute respiratory failure with hypoxia (CMS/HCC) Osteomyelitis of vertebra, thoracolumbar region (CMS/HCC) C-REACTIVE PROTEIN Routine 03/11/2024 5: 08 AM EST Acute respiratory failure with hypoxia (CMS/HCC) Osteomyelitis of vertebra, thoracolumbar region (CMS/HCC) VANCOMYCIN, TROUGH STAT 03/11/2024 5: 08 AM EST Acute respiratory failure with hypoxia (CMS/HCC) Osteomyelitis of vertebra, thoracolumbar region (CMS/HCC) COMPREHENSIVE METABOLIC PANEL Routine 03/11/2024 5:08 AM EST Acute respiratory failure with hypoxia (CMS/HCC) Osteomyelitis of vertebra, thoracolumbar region (CMS/HCC) documented in this encounter Results * (ABNORMAL) Vancomycin, trough (03/11/2024 5:08 AM EST) [facility] Vancomycin Trough 21.9(H) 10.0 - 20.0 mcg/mL LAB CHEMISTRY METHOD 03/11/2024 6:20 AM EST [facility] Blood Venous blood specimen / Unknown 03/11/2024 5:08 AM EST 03/11/2024 5:52 AM EST us Rakesh Bullock MD LAB BLOOD ORDERABLES Final Resu lt Performing Organization Address [facility]/ZIP Co de Phone Number [facility] [address] [place] [address], [place] [phone] * (ABNORMAL) C-reactive protein (03/11/2024 5:08 AM EST) [facility] C-Reactive Protein 8.20(H) <=0.50 mg/dL LAB CHEMISTRY METHOD 03/11/2024 6:21 AM EST [facility] Blood Venous blood specimen / Unknown 03/11/2024 5:08 AM EST 03/11/2024 5:52 AM EST us Rakesh Bullock MD LAB BLOOD ORDERABLES Final Resu lt [facility] [address] [place] [address], [place] [phone] * (ABNORMAL) Sedimentation rate (03/11/2024 5:08 AM EST) [facility] Sed Rate 101(H) 0 - 30 mm/hr LAB HEMETOLOGY METHOD 03/11/2024 7:02 AM EST [facility] Blood Venous blood specimen / Unknown 03/11/2024 5:08 AM EST 03/11/2024 5:52 AM EST us Rakesh Bullock MD LAB BLOOD ORDERABLES Final Resu lt [facility] [address] [place] [address], [place] [phone] * (ABNORMAL) Comprehensive metabolic panel (03/11/2024 5:08 AM EST) Sodium 136 133 - 145 mmol/L LAB CHEMISTRY METHOD 03/11/2024 6:20 AM [facility] Potassium 4.1 3.5 - 5.5 mmol/L LAB CHEMISTRY METHOD 03/11/2024 6:20 AM [facility] Chloride 109 96 - 110 mmol/L LAB CHEMISTRY METHOD 03/11/2024 6:20 AM [facility] CO2 21 21 - 32 mmol/L LAB CHEMISTRY METHOD 03/11/2024 6:20 AM [facility] Anion Gap 6 3 - 11 LAB CHEMISTRY METHOD 03/11/2024 6:20 AM [facility] Glucose 94 70 - 100 mg/dL LAB CHEMISTRY METHOD 03/11/2024 6:20 AM [facility] BUN 13 5 - 25 mg/dL LAB CHEMISTRY METHOD 03/11/2024 6:20 AM [facility] Creatinine 0.49(L) 0.50 - 1.10 mg/dL LAB CHEMISTRY METHOD 03/11/2024 6:20 AM [facility] eGFR 98 >=60 mL/min/1. 73m2 LAB CHEMISTRY METHOD 03/11/2024 6:20 AM [facility] Comment:Calculation based on the Chronic Kidney Disease Epidemiology Collaboration (CKD-EPI) equation refit without adjustment for race. BUN/Creatinine Ratio 26.5 LAB CHEMISTRY METHOD 03/11/2024 6:20 AM [facility] Calcium 8.9 8.5 - 10.5 mg/dL LAB CHEMISTRY METHOD 03/11/2024 6:20 AM [facility] AST (SGOT) 12 10 - 42 unit/L LAB CHEMISTRY METHOD 03/11/2024 6:20 AM [facility] ALT (SGPT) 22 10 - 60 unit/L LAB CHEMISTRY METHOD 03/11/2024 6:20 AM [facility] Alkaline Phosphatase 98 42 - 121 unit/L LAB CHEMISTRY METHOD 03/11/2024 6:20 AM [facility] Total Protein 6.5 6.0 - 8.0 g/dL LAB CHEMISTRY METHOD 03/11/2024 6:20 AM [facility] Albumin 2.3(L) 3.2 - 5.0 g/dL LAB CHEMISTRY METHOD 03/11/2024 6:20 AM [facility] Total Bilirubin 0.2 0.0 - 1.4 mg/dL LAB CHEMISTRY METHOD 03/11/2024 6:20 AM [facility] Blood Venous blood specimen / Unknown 03/11/2024 5:08 AM EST 03/11/2024 5:52 AM EST us Rakesh Bullock MD LAB BLOOD ORDERABLES Final Resu lt [facility] [address] [place] [address], * (ABNORMAL) Complete blood count (03/11/2024 5:08 AM EST) WBC 6.7 4.8 - 10.8 K/mcL LAB HEMETOLOGY METHOD 03/11/2024 6:24 AM [facility] RBC 3.10(L) 3.80 - 4.80 M/mcL LAB HEMETOLOGY METHOD 03/11/2024 6:24 AM [facility] Hemoglobin 8.6(L) 11.5 - 16.0 g/dL LAB HEMETOLOGY METHOD 03/11/2024 6:24 AM [facility] Hematocrit 27.8(L) 35.0 - 47.0 % LAB HEMETOLOGY METHOD 03/11/2024 6:24 AM [facility] MCV 90.8 79.0 - 98.0 FL LAB HEMETOLOGY METHOD 03/11/2024 6:24 AM [facility] MCH 28.1 27.0 - 32.0 pcg LAB HEMETOLOGY METHOD 03/11/2024 6:24 AM [facility] MCHC 30.9(L) 32.0 - 37.0 g/dL LAB HEMETOLOGY METHOD 03/11/2024 6:24 AM [facility] RDW 15.0 11.0 - 15.0 % LAB HEMETOLOGY METHOD 03/11/2024 6:24 AM [facility] Platelets 425(H) 130 - 400 K/mcL LAB HEMETOLOGY METHOD 03/11/2024 6:24 AM [facility] MPV 9.1 7.0 - 11.0 FL LAB HEMETOLOGY METHOD 03/11/2024 6:24 AM [facility] NRBC 0.0 <1.0 % LAB HEMETOLOGY METHOD 03/11/2024 6:24 AM [facility] NRBC Absolute 0.00 <0.10 K/mcL LAB HEMETOLOGY METHOD 03/11/2024 6:24 AM [facility] Blood Venous blood specimen / Unknown 03/11/2024 5:08 AM EST 03/11/2024 5:52 AM EST us Rakesh Bullock MD LAB BLOOD ORDERABLES Final Resu lt [facility] [address] [place] [address] [phone] documented in this encounter Visit Diagnoses Diagnosis Acute respiratory failure with hypoxia ([facility] V24, [facility] V28) Osteomyelitis of vertebra, thoracolumbar region ([facility] V24, [facility] V28) documented in this encounter Additional Health Concerns Infection Onset Date Last Indicated Resolved Time MRSA 02/19/2024 06/13/2024 06/19/2024 12:0 3 PM EDT MRSA 06/27/2024 06/27/2024 07/01/2024 7:30 AM EDT MRSA 06/27/2024 06/27/2024 07/02/2024 1:23 PM EDT documented as of this encounter Care Teams Tailor'S Aide Relationship Specialty Start Date End Date Allyson Fairchild NP [address] [address] PCP - General Family Medicine 02/18/24 documented as of this encounter
--- OUTSIDE RECORDS SUMMARY | 2024-12-03 09:53 | XMS_ITS | Encounter Summary ---
Author Organization [facility] Address [address] [place] [address] Care Team Providers Care Outdoor Adventure Instructor Name Role Phone Allyson Fairchild NP Primary Care Provider [phone] Encounter Details Date Type Department Care Team (Latest Contact Info) Description 07/12/2024 Lab Requisition [facility] - Main Lab 299 [facility] [place] [address] Rakesh Bullock MD [address] [place] [address] Osteomyelitis of vertebra, thoracic region ([facility] V24, [facility] V28); 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 Social History Tobacco Use Types Packs/Day Years [...] Info) Description 12/03/2024 12:45 PM EDT Appointment [facility] Pulmonary [address] [place] [address] 12/12/2024 12:30 PM EST Office Visit [facility] Cardiology [facility] [address] [place] [address] Rodríguez Meza MD [address] [place], [place] [phone] 02/18/2025 10:00 AM EST Office Visit Infectious Disease [facility] [address] [place] [phone] Daria Woodall MD [address] [place] [address] documented as of this encounter Procedures Procedure Name Priority Date/Time Associated Diagnosis Comments VANCOMYCIN, TROUGH STAT 07/12/2024 8: 14 AM EDT Osteomyelitis of vertebra, thoracic region ([facility] V24, [facility] V28) 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 documented in this encounter Results * (ABNORMAL) Vancomycin, trough (07/12/2024 8:14 AM EDT) Vancomycin Trough 23.0(H) 10.0 - 20.0 mcg/mL LAB CHEMISTRY METHOD 07/12/2024 10:22 AM EDT [facility] Blood Venous blood specimen / Unknown 07/12/2024 8:14 AM EDT 07/12/2024 10:04 AM EDT us Rakesh Bullock MD LAB BLOOD ORDERABLES Final Resu lt [facility] [address] [place] [address], documented in this encounter Visit Diagnoses Diagnosis Osteomyelitis of vertebra, thoracic region ([facility] V24, [facility] V28) 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
--- OUTSIDE RECORDS SUMMARY | 2024-12-03 09:53 | XMS_ITS | Encounter Summary ---
Author Organization Address [address] [place] [address] Care Team Providers Care Shuttle Inspector Name Role Phone Allyson Fairchild NP Primary Care Provider [phone] Encounter Details Date Type Department Care Team (Latest Contact Info) Description 02/27/2024 Lab Requisition [facility] - Main Lab 299 [facility] [place] [address] Rakesh Bullock MD [address] [place] [address] Methicillin resistant Staphylococcus aureus infection, [...] Info) Description 12/03/2024 12:45 PM EDT Appointment [facility] Pulmonary [address] [place] [phone] 12/12/2024 12:30 PM EST Office Visit [facility] Cardiology - [place] [address] [place] [address] Rodríguez Meza MD [address] [place] [address] 02/18/2025 10:00 AM EST Office Visit Infectious Disease - [place] [address] [place] [phone] Daria Woodall MD [address] [place], [place] [phone] documented as of this encounter Procedures Procedure Name Priority Date/Time Associated Diagnosis Comments COMPLETE BLOOD COUNT Routine 02/28/2024 5:35 AM EST Methicillin resistant Staphylococcus aureus infection, unspecified site Essential (primary) hypertension BASIC METABOLIC PANEL Routine 02/28/2024 5:35 AM EST Methicillin resistant Staphylococcus aureus infection, unspecified site Essential (primary) hypertension documented in this encounter Results * (ABNORMAL) Basic metabolic panel (02/28/2024 5:35 AM EST) Sodium 132(L) 133 - 145 mmol/L LAB CHEMISTRY METHOD 02/28/2024 11:38 AM EST [facility] Potassium 4.8 3.5 - 5.5 mmol/L LAB CHEMISTRY METHOD 02/28/2024 11:38 AM EST [facility] Chloride 101 96 - 110 mmol/L LAB CHEMISTRY METHOD 02/28/2024 11:38 AM EST [facility] CO2 27 21 - 32 mmol/L LAB CHEMISTRY METHOD 02/28/2024 11:38 AM EST [facility] Anion Gap 4 3 - 11 LAB CHEMISTRY METHOD 02/28/2024 11:38 AM [facility] Glucose 85 70 - 100 mg/dL LAB CHEMISTRY METHOD 02/28/2024 11:38 AM [facility] BUN 11 5 - 25 mg/dL LAB CHEMISTRY METHOD 02/28/2024 11:38 AM [facility] Creatinine 0.54 0.50 - 1.10 mg/dL LAB CHEMISTRY METHOD 02/28/2024 11:38 AM [facility] eGFR 96 >=60 mL/min/1. 73m2 LAB CHEMISTRY METHOD 02/28/2024 11:38 AM [facility] Comment:Calculation based on the Chronic Kidney Disease Epidemiology Collaboration (CKD-EPI) equation refit without adjustment for race. BUN/Creatinine Ratio 20.4 LAB CHEMISTRY METHOD 02/28/2024 11:38 AM [facility] Calcium 8.5 8.5 - 10.5 mg/dL LAB CHEMISTRY METHOD 02/28/2024 11:38 AM [facility] Blood Venous blood specimen / Unknown Venipuncture / Unknown 02/28/2024 5:35 AM EST 02/28/2024 10:59 AM EST us Rakesh Bullock MD LAB BLOOD ORDERABLES Final Resu lt [facility] [address] [place] [address], * (ABNORMAL) Complete blood count (02/28/2024 5:35 AM EST) WBC 9.1 4.8 - 10.8 K/[facility] LAB HEMETOLOGY METHOD 02/28/2024 11:20 AM [facility] RBC 2.70(L) 3.80 - 4.80 M/[facility] LAB HEMETOLOGY METHOD 02/28/2024 11:20 AM [facility] Hemoglobin 7.7(L) 11.5 - 16.0 g/dL LAB HEMETOLOGY METHOD 02/28/2024 11:20 AM [facility] Hematocrit 25.5(L) 35.0 - 47.0 % LAB HEMETOLOGY METHOD 02/28/2024 11:20 AM [facility] MCV 95.5 79.0 - 98.0 FL LAB HEMETOLOGY METHOD 02/28/2024 11:20 AM [facility] MCH 28.8 27.0 - 32.0 pcg LAB HEMETOLOGY METHOD 02/28/2024 11:20 AM [facility] MCHC 30.2(L) 32.0 - 37.0 g/dL LAB HEMETOLOGY METHOD 02/28/2024 11:20 AM [facility] RDW 14.5 11.0 - 15.0 % LAB HEMETOLOGY METHOD 02/28/2024 11:20 AM [facility] Platelets 513(H) 130 - 400 K/mcL LAB HEMETOLOGY METHOD 02/28/2024 11:20 AM [facility] MPV 9.5 7.0 - 11.0 FL LAB HEMETOLOGY METHOD 02/28/2024 11:20 AM [facility] NRBC 0.0 <1.0 % LAB HEMETOLOGY METHOD 02/28/2024 11:20 AM [facility] NRBC Absolute 0.00 <0.10 K/mcL LAB HEMETOLOGY METHOD 02/28/2024 11:20 AM [facility] Blood Venous blood specimen / Unknown Venipuncture / Unknown 02/28/2024 5:35 AM EST 02/28/2024 11:01 AM EST Rakesh Bullock MD LAB BLOOD ORDERABLES Final Resu lt [facility] LAB [address] [place] [address], documented in this encounter Visit Diagnoses Diagnosis Methicillin resistant Staphylococcus aureus infection, unspecified site Essential (primary) hypertension Unspecified essential hypertension documented in this encounter Additional Health Concerns Infection Onset Date Last Indicated Resolved Time MRSA 02/19/2024 06/13/2024 06/19/2024 12:0 3 PM EDT MRSA 06/27/2024 06/27/2024 07/01/2024 7:30 AM EDT MRSA 06/27/2024 06/27/2024 07/02/2024 1:23 PM EDT documented as of this encounter Care Teams Shuttle Inspector Relationship Specialty Start Date End Date Allyson Fairchild NP [address] [place] [id number] PCP - General Family Medicine 02/18/24 documented as of this encounter
--- OUTSIDE RECORDS SUMMARY | 2024-12-03 09:53 | XMS_ITS | Encounter Summary ---
Author Organization [facility] Address [address] [place] [address] Care Team Providers Care Electronic Warfare Linguist Name Role Phone Allyson Fairchild NP Primary Care Provider [phone] Encounter Details Date Type Department Care Team (Latest Contact Info) Description 04/14/2024 Lab Requisition [facility] - Main Lab [address] [facility] [place] [address] Rakesh Bullock MD [address] [place] [address] Essential (primary) hypertension; Osteomyelitis of [...] Info) Description 12/03/2024 12:45 PM EDT Appointment [facility] Pulmonary [address] [place] [address] 12/12/2024 12:30 PM EST Office Visit [facility] Cardiology - [place] [address] [place] [address] Rodríguez Meza MD [address] [place] [address] 02/18/2025 10:00 AM EST Office Visit Infectious Disease - [place] [address] [place] [address] Daria Woodall MD [address] [place], [place] [id number] documented as of this encounter Procedures Procedure Name Priority Date/Time Associated Diagnosis Comments SEDIMENTATION RATE Routine 04/15/2024 4: 53 AM EDT Essential (primary) hypertension Osteomyelitis of vertebra, thoracolumbar region (CMS/HCC) COMPLETE BLOOD COUNT Routine 04/15/2024 4:53 AM EDT Essential (primary) hypertension Osteomyelitis of vertebra, thoracolumbar region (CMS/HCC) C-REACTIVE PROTEIN Routine 04/15/2024 4: 53 AM EDT Essential (primary) hypertension Osteomyelitis of vertebra, thoracolumbar region (CMS/HCC) VANCOMYCIN, TROUGH Routine 04/15/2024 4: 53 AM EDT Essential (primary) hypertension Osteomyelitis of vertebra, thoracolumbar region (CMS/HCC) COMPREHENSIVE METABOLIC PANEL Routine 04/15/2024 4:53 AM EDT Essential (primary) hypertension Osteomyelitis of vertebra, thoracolumbar region (CMS/HCC) documented in this encounter Results * Vancomycin, trough (04/15/2024 4:53 AM EDT) [facility] Vancomycin Trough 13.6 10.0 - 20.0 mcg/mL LAB CHEMISTRY METHOD 04/15/2024 6:48 AM EDT [facility] Blood Venous blood specimen / Unknown Venipuncture / Unknown 04/15/2024 4:53 AM EDT 04/15/2024 6:18 AM EDT us Rakesh Bullock MD LAB BLOOD ORDERABLES Final Resu lt [facility] [address] [place] [address], [place] [phone] * (ABNORMAL) C-reactive protein (04/15/2024 4:53 AM EDT) [facility] C-Reactive Protein 1.87(H) <=0.50 mg/dL LAB CHEMISTRY METHOD 04/15/2024 6:48 AM EDT [facility] Blood Venous blood specimen / Unknown Venipuncture / Unknown 04/15/2024 4:53 AM EDT 04/15/2024 6:18 AM EDT us Rakesh Bullock MD LAB BLOOD ORDERABLES Final Resu lt [facility] [address] [place] [address], [place] [phone] * (ABNORMAL) Sedimentation rate (04/15/2024 4:53 AM EDT) [facility] Sed Rate 71(H) 0 - 30 mm/hr LAB HEMETOLOGY METHOD 04/15/2024 6:51 AM EDT [facility] Blood Venous blood specimen / Unknown Venipuncture / Unknown 04/15/2024 4:53 AM EDT 04/15/2024 6:17 AM EDT us Rakesh Bullock MD LAB BLOOD ORDERABLES Final Resu lt [facility] [address] [place] [address], [place] [phone] * (ABNORMAL) Comprehensive metabolic panel (04/15/2024 4:53 AM EDT) Sodium 140 133 - 145 mmol/L LAB CHEMISTRY METHOD 04/15/2024 6:48 AM EDT [facility] Potassium 4.2 3.5 - 5.5 mmol/L LAB CHEMISTRY METHOD 04/15/2024 6:48 AM [facility] Chloride 107 96 - 110 mmol/L LAB CHEMISTRY METHOD 04/15/2024 6:48 AM [facility] CO2 26 21 - 32 mmol/L LAB CHEMISTRY METHOD 04/15/2024 6:48 AM [facility] Anion Gap 7 3 - 11 LAB CHEMISTRY METHOD 04/15/2024 6:48 AM [facility] Glucose 92 70 - 100 mg/dL LAB CHEMISTRY METHOD 04/15/2024 6:48 AM [facility] BUN 12 5 - 25 mg/dL LAB CHEMISTRY METHOD 04/15/2024 6:48 AM [facility] Creatinine 0.57 0.50 - 1.10 mg/dL LAB CHEMISTRY METHOD 04/15/2024 6:48 AM [facility] eGFR 94 >=60 mL/min/1. 73m2 LAB CHEMISTRY METHOD 04/15/2024 6:48 AM [facility] Comment:Calculation based on the Chronic Kidney Disease Epidemiology Collaboration (CKD-EPI) equation refit without adjustment for race. BUN/Creatinine Ratio 21.1 LAB CHEMISTRY METHOD 04/15/2024 6:48 AM [facility] Calcium 9.2 8.5 - 10.5 mg/dL LAB CHEMISTRY METHOD 04/15/2024 6:48 AM EDT [facility] AST (SGOT) 20 10 - 42 unit/L LAB CHEMISTRY METHOD 04/15/2024 6:48 AM EDT [facility] ALT (SGPT) 20 10 - 60 unit/L LAB CHEMISTRY METHOD 04/15/2024 6:48 AM EDT [facility] Alkaline Phosphatase 108 42 - 121 unit/L LAB CHEMISTRY METHOD 04/15/2024 6:48 AM EDT [facility] Total Protein 6.5 6.0 - 8.0 g/dL LAB CHEMISTRY METHOD 04/15/2024 6:48 AM EDT [facility] Albumin 2.9(L) 3.2 - 5.0 g/dL LAB CHEMISTRY METHOD 04/15/2024 6:48 AM EDT [facility] Total Bilirubin 0.3 0.0 - 1.4 mg/dL LAB CHEMISTRY METHOD 04/15/2024 6:48 AM EDT [facility] Blood Venous blood specimen / Unknown Venipuncture / Unknown 04/15/2024 4:53 AM EDT 04/15/2024 6:18 AM EDT us Rakesh Bullock MD LAB BLOOD ORDERABLES Final Resu lt [facility] [address] [place] [address], * (ABNORMAL) Complete blood count (04/15/2024 4:53 AM EDT) WBC 5.7 4.8 - 10.8 K/mcL LAB HEMETOLOGY METHOD 04/15/2024 6:33 AM EDT [facility] RBC 3.50(L) 3.80 - 4.80 M/mcL LAB HEMETOLOGY METHOD 04/15/2024 6:33 AM EDT [facility] Hemoglobin 9.6(L) 11.5 - 16.0 g/dL LAB HEMETOLOGY METHOD 04/15/2024 6:33 AM [facility] Hematocrit 31.0(L) 35.0 - 47.0 % LAB HEMETOLOGY METHOD 04/15/2024 6:33 AM [facility] MCV 87.6 79.0 - 98.0 FL LAB HEMETOLOGY METHOD 04/15/2024 6:33 AM [facility] MCH 27.1 27.0 - 32.0 pcg LAB HEMETOLOGY METHOD 04/15/2024 6:33 AM [facility] MCHC 31.0(L) 32.0 - 37.0 g/dL LAB HEMETOLOGY METHOD 04/15/2024 6:33 AM [facility] RDW 16.9(H) 11.0 - 15.0 % LAB HEMETOLOGY METHOD 04/15/2024 6:33 AM [facility] Platelets 367 130 - 400 K/mcL LAB HEMETOLOGY METHOD 04/15/2024 6:33 AM [facility] MPV 9.1 7.0 - 11.0 FL LAB HEMETOLOGY METHOD 04/15/2024 6:33 AM [facility] NRBC 0.0 <1.0 % LAB HEMETOLOGY METHOD 04/15/2024 6:33 AM [facility] NRBC Absolute 0.00 <0.10 K/mcL LAB HEMETOLOGY METHOD 04/15/2024 6:33 AM [facility] Blood Venous blood specimen / Unknown Venipuncture / Unknown 04/15/2024 4:53 AM EDT 04/15/2024 6:17 AM EDT us Rakesh Bullock MD LAB BLOOD ORDERABLES [facility] LAB [address] [place] [address], documented in this encounter Visit Diagnoses Diagnosis Essential (primary) hypertension Unspecified essential hypertension Osteomyelitis of vertebra, thoracolumbar region ([facility] V24, [facility] V28) documented in this encounter Additional Health Concerns Infection Onset Date Last Indicated Resolved Time MRSA 02/19/2024 06/13/2024 06/19/2024 12:0 3 PM EDT MRSA 06/27/2024 06/27/2024 07/01/2024 7:30 AM EDT MRSA 06/27/2024 06/27/2024 07/02/2024 1:23 PM EDT documented as of this encounter Care Teams Electronic Warfare Linguist Relationship Specialty Start Date End Date Allyson Fairchild BLANKET INSPECTOR [address] [address] PCP - General Family Medicine 02/18/24 documented as of this encounter
--- OUTSIDE RECORDS SUMMARY | 2024-12-03 09:53 | XMS_ITS | Encounter Summary ---
Author Organization [facility] Address [address] [place] [address] Care Team Providers Care Ct Manager Name Role Phone Allyson Fairchild NP Primary Care Provider [phone] Encounter Details Date Type Department Care Team (Latest Contact Info) Description 07/16/2024 Lab Requisition [facility] - Main Lab [address] [facility] [place] [address] Rakesh Bullock MD [address] [place] [address] Methicillin resistant Staphylococcus aureus infection [...] Info) Description 12/03/2024 12:45 PM EDT Appointment [facility] Pulmonary [address] [place] [address] 12/12/2024 12:30 PM EST Office Visit [facility] Cardiology - [place] [address] [place] [phone] Rodríguez Meza MD [address] [place], [place] [phone] 02/18/2025 10:00 AM EST Office Visit Infectious Disease [facility] [address] [place] [phone] [facility]all MD [address] [facility] [address] [place] [address] documented as of this encounter Procedures Procedure Name Priority Date/Time Associated Diagnosis Comments COMPLETE BLOOD COUNT Routine 07/17/2024 7:49 AM EDT 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, thoracic region Essential (primary) hypertension Osteomyelitis of vertebra, thoracic region (CMS/HCC V24, CMS/HCC V28) BASIC METABOLIC PANEL Routine 07/17/2024 7:49 AM EDT 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, thoracic region Essential (primary) hypertension Osteomyelitis of vertebra, thoracic region (CMS/HCC V24, CMS/HCC V28) documented in this encounter Results * (ABNORMAL) Complete blood count (07/17/2024 7:49 AM EDT) [facility] WBC 6.0 4.8 - 10.8 K/mcL LAB HEMETOLOGY METHOD 07/17/2024 9:[address] [facility] RBC 3.80 3.80 - 4.80 M/mcL LAB HEMETOLOGY METHOD 07/17/2024 9:[address] [facility] Hemoglobin 10.0(L) 11.5 - 16.0 g/dL LAB HEMETOLOGY METHOD 07/17/2024 9:[address] [facility] Hematocrit 33.0(L) 35.0 - 47.0 % LAB HEMETOLOGY METHOD 07/17/2024 9:[address] [facility] MCV 87.8 79.0 - 98.0 FL LAB HEMETOLOGY METHOD 07/17/2024 9:[address] [facility] MCH 26.6(L) 27.0 - 32.0 pcg LAB HEMETOLOGY METHOD 07/17/2024 9:[address] [facility] MCHC 30.3(L) 32.0 - 37.0 g/dL LAB HEMETOLOGY METHOD 07/17/2024 9:01 AM EDT [facility] RDW 13.9 11.0 - 15.0 % LAB HEMETOLOGY METHOD 07/17/2024 9:01 AM EDT [facility] Platelets 249 130 - 400 K/mcL LAB HEMETOLOGY METHOD 07/17/2024 9:01 AM EDT [facility] MPV 9.6 7.0 - 11.0 FL LAB HEMETOLOGY METHOD 07/17/2024 9:01 AM EDT [facility] NRBC 0.0 <1.0 % LAB HEMETOLOGY METHOD 07/17/2024 9:01 AM EDT [facility] NRBC Absolute 0.00 <0.10 K/mcL LAB HEMETOLOGY METHOD 07/17/2024 9:01 AM T [facility] Blood Venous blood specimen / Unknown Venipuncture / Unknown 07/17/2024 7:49 AM EDT 07/17/2024 8:37 AM EDT us Rakesh Bullock MD LAB BLOOD ORDERABLES Final Resu lt [facility] [address] [place] [address], * Basic metabolic panel (07/17/2024 7:49 AM EDT) Sodium 138 133 - 145 mmol/L LAB CHEMISTRY METHOD 07/17/2024 9:49 AM T [facility] Potassium 4.1 3.5 - 5.5 mmol/L LAB CHEMISTRY METHOD 07/17/2024 9:[address] [facility] Chloride 104 96 - 110 mmol/L LAB CHEMISTRY METHOD 07/17/2024 9:[address] [facility] CO2 29 21 - 32 mmol/L LAB CHEMISTRY METHOD 07/17/2024 9:[address] [facility] Anion Gap 5 3 - 11 LAB CHEMISTRY METHOD 07/17/2024 9:[address] [facility] Glucose 95 70 - 100 mg/dL LAB CHEMISTRY METHOD 07/17/2024 9:[address] [facility] BUN 12 5 - 25 mg/dL LAB CHEMISTRY METHOD 07/17/2024 9:[address] [facility] Creatinine 0.89 0.50 - 1.10 mg/dL LAB CHEMISTRY METHOD 07/17/2024 9:[address] [facility] eGFR 67 >=60 mL/min/1. 73m2 LAB CHEMISTRY METHOD 07/17/2024 9:[address] [facility] Comment:Calculation based on the Chronic Kidney Disease Epidemiology Collaboration (CKD-EPI) equation refit without adjustment for race. 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
--- OUTSIDE RECORDS SUMMARY | 2024-12-03 09:53 | XMS_ITS | Encounter Summary ---
Author Organization [facility] Address [address] [place] [address] Care Team Providers Care Chief [place] Division Name Role Phone Allyson Fairchild NP Primary Care Provider [phone] Encounter Details Date Type Department Care Team (Latest Contact Info) Description 02/29/[address] [facility] - Main Lab [address] [facility] [place] [address] Rakesh Bullock MD [address] [place] [address] Abnormal finding of blood chemistry, unspecified; Osteomyelitis of vertebra, thoracolumbar region (CMS/HCC V24, [...] [facility] Pulmonary [address] [place] [address] 12/12/2024 12:30 PM EST Office Visit [facility] Cardiology - [place] [address] [place] [phone] Rodríguez Meza MD [address] [place] [address] 02/18/2025 10:00 AM EST Office Visit Infectious Disease [facility] [address] [place] [address] Daria Woodall MD [address] [place], [place] [phone] documented as of this encounter Procedures Procedure Name Priority Date/Time Associated Diagnosis Comments IRON AND TIBC Routine 02/29/2024 5:10 AM EST Abnormal finding of blood chemistry, unspecified Osteomyelitis of vertebra, thoracolumbar region (CMS/HCC) FERRITIN Routine 02/29/2024 5:10 AM EST Abnormal finding of blood chemistry, unspecified Osteomyelitis of vertebra, thoracolumbar region (CMS/HCC) documented in this encounter Results * (ABNORMAL) Ferritin (02/29/2024 5:10 AM EST) Ferritin 1,212(H) 8 - 252 ng/mL LAB CHEMISTRY METHOD 02/29/2024 11:16 AM EST [facility] Blood Venous blood specimen / Unknown Venipuncture / Unknown 02/29/2024 5:10 AM EST 02/29/2024 9:49 AM EST us Rakesh Bullock MD LAB BLOOD ORDERABLES Final Resu lt Performing Organization Address [facility]/ZIP Co de Phone Number [facility] [address] [place] [address], * (ABNORMAL) Iron and TIBC (02/29/2024 5:10 AM EST) Iron 12(L) 40 - 150 mcg/dL LAB CHEMISTRY METHOD 02/29/2024 11:16 AM EST [facility] TIBC 140(L) 250 - 450 mcg/dL LAB CHEMISTRY METHOD 02/29/2024 11:16 AM EST [facility] Iron Saturation 9(L) 15 - 50 % LAB CHEMISTRY METHOD 02/29/2024 11:16 AM EST [facility] Blood Venous blood specimen / Unknown Venipuncture / Unknown 02/29/2024 5:10 AM EST 02/29/2024 9:49 AM EST Rakesh Bullock MD LAB BLOOD ORDERABLES Final Resu lt Performing Organization Address [facility] Co de Phone Number [facility] [address] [place] [address], documented in this encounter Visit Diagnoses Diagnosis Abnormal finding of blood chemistry, unspecified Osteomyelitis of vertebra, thoracolumbar region ([facility] V24, CMS/[facility] V28) documented in this encounter Additional Health Concerns Infection Onset Date Last Indicated Resolved Time MRSA 02/19/2024 06/13/2024 06/19/2024 12:0 3 PM EDT MRSA 06/27/2024 06/27/2024 07/01/2024 7:30 AM EDT MRSA 06/27/2024 06/27/2024 07/02/2024 1:23 PM EDT documented as of this encounter Care Teams Chief Arson Division Relationship Specialty Start Date End Date Allyson Fairchild NP [address] [place] [address] PCP - General Family Medicine 02/18/24 documented as of this encounter
--- OUTSIDE RECORDS SUMMARY | 2024-12-03 09:53 | XMS_ITS | Encounter Summary ---
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; Osteomyelitis of vertebra, thoracic region (CMS/HCC V24, CMS/HCC V28); Fusion of spine, thoracic region; Essential (primary) hypertension Social History Tobacco Use [...] of Assessment Author No 06/13/2024 10:38 AM Eid Pulido RN documented as of this encounter [...] Appointment [facility] Pulmonary [address] [place] [address] 12/12/2024 12:30 PM EST [facility] [place] [address] [place] [phone] Rodríguez Meza MD [address] [place], [place] [phone] 02/18/2025 10:00 AM EST Office Visit Infectious Disease [facility] [address] [place] [phone] [facility]all [facility] [address] [facility] [address] [place] [address] documented as of this encounter Procedures Procedure Name Priority Date/Time Associated Diagnosis Comments CBC WITH AUTO DIFFERENTIAL Routine 07/14/2024 5:35 AM EDT 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, thoracic region (CMS/HCC V24, CMS/HCC V28) Fusion of spine, thoracic region Essential (primary) hypertension SEDIMENTATION RATE Routine 07/14/2024 5: 35 AM EDT 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, thoracic region (CMS/HCC V24, CMS/HCC V28) Fusion of spine, thoracic region Essential (primary) hypertension CBC AND DIFFERENTIAL Routine 07/14/2024 5:35 AM EDT 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, thoracic region (CMS/HCC V24, CMS/HCC V28) Fusion of spine, thoracic region Essential (primary) hypertension C-REACTIVE PROTEIN Routine 07/14/2024 5: 35 AM EDT 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, thoracic region (CMS/HCC V24, CMS/HCC V28) Fusion of spine, thoracic region Essential (primary) hypertension VANCOMYCIN, RANDOM Routine 07/14/2024 5: 35 AM EDT 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, thoracic region (CMS/HCC V24, CMS/HCC V28) Fusion of spine, thoracic region Essential (primary) hypertension COMPREHENSIVE METABOLIC PANEL Routine 07/14/2024 5:35 AM EDT 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 Hemoglobin 9.6(L) 11.5 - 16.0 g/dL LAB HEMETOLOGY METHOD 07/14/2024 2:19 PM [facility] Hematocrit 33.0(L) 35.0 - 47.0 % LAB HEMETOLOGY METHOD 07/14/2024 2:19 PM [facility] MCV 88.9 79.0 - 98.0 FL LAB HEMETOLOGY METHOD 07/14/2024 2:19 PM [facility] MCH 25.9(L) 27.0 - 32.0 pcg LAB HEMETOLOGY METHOD 07/14/2024 2:19 PM [facility] MCHC 29.1(L) 32.0 - 37.0 g/dL LAB HEMETOLOGY METHOD 07/14/2024 2:19 PM [facility] RDW 14.1 11.0 - 15.0 % LAB HEMETOLOGY METHOD 07/14/2024 2:19 PM [facility] Platelets 307 130 - 400 K/mcL LAB HEMETOLOGY METHOD 07/14/2024 2:19 PM [facility] MPV 9.7 7.0 - 11.0 FL LAB HEMETOLOGY METHOD 07/14/2024 2:19 PM [facility] NRBC 0.0 <1.0 % LAB HEMETOLOGY METHOD [facility] NRBC Absolute 0.00 <0.10 K/mcL LAB HEMETOLOGY METHOD 07/14/2024 2:19 PM [facility] Neutrophils Relative 61.1 % LAB HEMETOLOGY METHOD 07/14/2024 2:19 PM [facility] Lymphocytes Relative 21.0 % LAB HEMETOLOGY METHOD 07/14/2024 2:19 PM [facility] Monocytes Relative 11.1 % LAB HEMETOLOGY METHOD 07/14/2024 2:19 PM [facility] Eosinophils Relative 5.6 % LAB HEMETOLOGY METHOD 07/14/2024 2:19 PM [facility] Basophils Relative 0.9 % LAB HEMETOLOGY METHOD 07/14/2024 2:19 PM [facility] Immature Granulocytes Relative 0.3 % LAB HEMETOLOGY METHOD 07/14/2024 2:19 PM [facility] Neutrophils Absolute 3.52 1.50 - 7.00 K/mcL LAB HEMETOLOGY METHOD 07/14/2024 2:19 PM [facility] Lymphocytes Absolute 1.21 1.00 - 5.00 K/mcL LAB HEMETOLOGY METHOD 07/14/2024 2:19 PM [facility] Monocytes Absolute 0.64 0.20 - 1.00 K/mcL LAB HEMETOLOGY METHOD 07/14/2024 2:19 PM [facility] Eosinophils Absolute 0.32 0.00 - 0.50 K/mcL LAB HEMETOLOGY METHOD 07/14/2024 2:19 PM [facility] Basophils Absolute 0.05 0.00 - 0.20 K/mcL LAB HEMETOLOGY METHOD 07/14/2024 2:19 PM [facility] Immature Granulocytes Absolute 0.02 0.00 - 0.03 K/mcL LAB HEMETOLOGY METHOD 07/14/2024 2:19 PM EDT [facility] Blood Venous blood specimen / Unknown Venipuncture / Unknown 07/14/2024 5:35 AM EDT 07/14/2024 12:08 PM EDT us Rakesh Bullock MD LAB BLOOD ORDERABLES Final Resu lt Performing Organization Address City/[facility]/ZIP Co de Phone Number [facility] [address] [place] [address], [place] [phone] * (ABNORMAL) Sedimentation rate (07/14/2024 5:35 AM EDT) Sed Rate 71(H) 0 - 30 mm/hr LAB HEMETOLOGY METHOD 07/14/2024 2:31 PM EDT [facility] Blood Venous blood specimen / Unknown Venipuncture / Unknown 07/14/2024 5:35 AM EDT 07/14/2024 12:08 PM EDT us Rakesh Bullock MD LAB BLOOD ORDERABLES Final Resu lt Performing Organization Address [facility]/ZIP Co de Phone Number [facility] [address] [place] [address], [place] [phone] * (ABNORMAL) C-reactive protein (07/14/2024 5:35 AM EDT) C-Reactive Protein 0.71(H) <=0.50 mg/dL LAB CHEMISTRY METHOD 07/14/2024 1:19 PM EDT [facility] Blood Venous blood specimen / Unknown 07/14/2024 5:35 AM EDT 07/14/2024 1:18 PM EDT us Rakesh Bullock MD LAB BLOOD ORDERABLES Final Resu lt Performing Organization Address City/[facility]/ZIP Co de Phone Number [facility] [address] [place] [address], * (ABNORMAL) Comprehensive metabolic panel (07/14/2024 5:35 AM EDT) Sodium 138 133 - 145 mmol/L LAB CHEMISTRY METHOD 07/14/2024 1:18 PM [facility] Potassium 3.9 3.5 - 5.5 mmol/L LAB CHEMISTRY METHOD 07/14/2024 1:18 PM [facility] Chloride 103 96 - 110 mmol/L LAB CHEMISTRY METHOD 07/14/2024 1:18 PM [facility] CO2 29 21 - 32 mmol/L LAB CHEMISTRY METHOD 07/14/2024 1:18 PM [facility] Anion Gap 6 3 - 11 LAB CHEMISTRY METHOD 07/14/2024 1:18 PM [facility] Glucose 79 70 - 100 mg/dL LAB CHEMISTRY METHOD 07/14/2024 1:18 PM [facility] BUN 12 5 - 25 mg/dL LAB CHEMISTRY METHOD 07/14/2024 1:18 PM [facility] Creatinine 0.96 0.50 - 1.10 mg/dL LAB CHEMISTRY METHOD 07/14/2024 1:18 PM [facility] eGFR 61 >=60 mL/min/1. 73m2 LAB CHEMISTRY METHOD 07/14/2024 1:18 PM [facility] Comment:Calculation based on the Chronic Kidney Disease Epidemiology Collaboration (CKD-EPI) equation refit without adjustment for race. BUN/Creatinine Ratio 12.5 LAB CHEMISTRY METHOD 07/14/2024 1:18 PM [facility] Calcium 9.4 8.5 - 10.5 mg/dL LAB CHEMISTRY METHOD 07/14/2024 1:18 PM [facility] AST (SGOT) 13 10 - 42 unit/L LAB CHEMISTRY METHOD 07/14/2024 1:18 PM [facility] ALT (SGPT) 14 10 - 60 unit/L LAB CHEMISTRY METHOD 07/14/2024 1:18 PM EDT [facility] Alkaline Phosphatase 96 42 - 121 unit/L LAB CHEMISTRY METHOD 07/14/2024 1:18 PM EDT [facility] Total Protein 5.9(L) 6.0 - 8.0 g/dL LAB CHEMISTRY METHOD 07/14/2024 1:18 PM EDT [facility] Albumin 2.9(L) 3.2 - 5.0 g/dL LAB CHEMISTRY METHOD 07/14/2024 1:18 PM EDT [facility] Total Bilirubin 0.2 0.0 - 1.4 mg/dL LAB CHEMISTRY METHOD 07/14/2024 1:18 PM EDT [facility] Blood Venous blood specimen / Unknown 07/14/2024 5:35 AM EDT 07/14/2024 1:18 PM EDT us Rakesh Bullock MD LAB BLOOD ORDERABLES Final Resu lt [facility] [address] [place] [address], [place] [phone] * Vancomycin random (07/14/2024 5:35 AM EDT) Vancomycin Rm 23.4 mcg/mL LAB CHEMISTRY METHOD 07/14/2024 1:18 PM EDT [facility] Blood Venous blood specimen / Unknown 07/14/2024 5:35 AM EDT 07/14/2024 1:18 PM EDT us Rakesh Bullock MD LAB BLOOD ORDERABLES Final Resu lt Performing Organization Address City/[facility]/ZIP Co de Phone Number [facility] [address] [place] [address], [place] [phone] documented in this encounter Visit Diagnoses Diagnosis 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
--- OUTSIDE RECORDS SUMMARY | 2024-12-03 09:53 | XMS_ITS | Encounter Summary ---
Author Organization [facility] Address [address] [place] [address] Care Team Providers Care Bowling Ball Finisher Name Role Phone Allyson Fairchild NP Primary Care Provider [phone] Encounter Details Date Type Department Care Team (Late st Contact Info) Description 02/26/2024 Lab Requisition [facility] - Main Lab [address] [facility] [place] [address] Rakesh Bullock MD [address] [place] [address] Essential (primary) hypertension Social History Tobacco Use [...] Description 12/03/2024 12:45 PM EDT Appointment [facility] Pulmonary [address] [place] [address] 12/12/2024 12:30 PM EST Office Visit [facility] Cardiology - [place] [address] [place] [address] Rodríguez Meza MD [address] [place] [address] 02/18/2025 10:00 AM EST Office Visit Infectious Disease - [place] [address] [place] [address] Daria Woodall MD [address] [place], [place] [phone] documented as of this encounter Procedures Procedure Name Priority Date/Time Associated Diagnosis Comments COMPLETE BLOOD COUNT Routine 02/26/2024 5:07 AM EST Essential (primary) hypertension COMPREHENSIVE METABOLIC PANEL Routine 02/26/2024 5:07 AM EST Essential (primary) hypertension documented in this encounter Results * (ABNORMAL) Comprehensive metabolic panel (02/26/2024 5:07 AM EST) Sodium 136 133 - 145 mmol/L LAB CHEMISTRY METHOD 02/26/2024 10:52 AM EST [facility] Potassium 5.9(H) 3.5 - 5.5 mmol/L LAB CHEMISTRY METHOD 02/26/2024 10:52 AM EST [facility] Chloride 105 96 - 110 mmol/L LAB CHEMISTRY METHOD 02/26/2024 10:52 AM EST [facility] CO2 28 21 - 32 mmol/L LAB CHEMISTRY METHOD 02/26/2024 10:[address] [facility] Anion Gap 3 3 - 11 LAB CHEMISTRY METHOD 02/26/2024 10:[address] [facility] Glucose 86 70 - 100 mg/dL LAB CHEMISTRY METHOD 02/26/2024 10:[address] [facility] BUN 10 5 - 25 mg/dL LAB CHEMISTRY METHOD 02/26/2024 10:[address] [facility] Creatinine 0.60 0.50 - 1.10 mg/dL LAB CHEMISTRY METHOD 02/26/2024 10:[address] [facility] eGFR 93 >=60 mL/min/1. 73m2 LAB CHEMISTRY METHOD 02/26/2024 10:[address] [facility] Comment:Calculation based on the Chronic Kidney Disease Epidemiology Collaboration (CKD-EPI) equation refit without adjustment for race. BUN/Creatinine Ratio 16.7 LAB CHEMISTRY METHOD 02/26/2024 10:[address] [facility] Calcium 9.4 8.5 - 10.5 mg/dL LAB CHEMISTRY METHOD 02/26/2024 10:[address] [facility] AST (SGOT) 22 10 - 42 unit/L LAB CHEMISTRY METHOD 02/26/2024 10:[address] [facility] ALT (SGPT) 29 10 - 60 unit/L LAB CHEMISTRY METHOD 02/26/2024 10:[address] [facility] Alkaline Phosphatase 101 42 - 121 unit/L LAB CHEMISTRY METHOD 02/26/2024 10:[address] [facility] Total Protein 6.1 6.0 - 8.0 g/dL LAB CHEMISTRY METHOD 02/26/2024 10:[address] [facility] Albumin 2.0(L) 3.2 - 5.0 g/dL LAB CHEMISTRY METHOD 02/26/2024 10:[address] [facility] Total Bilirubin 0.3 0.0 - 1.4 mg/dL LAB CHEMISTRY METHOD 02/26/2024 10:[address] [facility] Blood Venous blood specimen / Unknown Venipuncture / Unknown 02/26/2024 5:07 AM EST 02/26/2024 9:29 AM EST us Rakesh Bullock MD LAB BLOOD ORDERABLES Final Resu lt [facility] [address] [place] [address], [place] [phone] * (ABNORMAL) Complete blood count (02/26/2024 5:07 AM EST) WBC 10.2 4.8 - 10.8 K/mcL LAB HEMETOLOGY METHOD 02/26/2024 10:[address] [facility] RBC 2.90(L) 3.80 - 4.80 M/mcL LAB HEMETOLOGY METHOD 02/26/2024 10:[address] [facility] Hemoglobin 8.6(L) 11.5 - 16.0 g/dL LAB HEMETOLOGY METHOD 02/26/2024 10:[address] [facility] Hematocrit 28.2(L) 35.0 - 47.0 % LAB HEMETOLOGY METHOD 02/26/2024 10:[address] [facility] MCV 97.9 79.0 - 98.0 FL LAB HEMETOLOGY METHOD 02/26/2024 10:[address] [facility] MCH 29.9 27.0 - 32.0 pcg LAB HEMETOLOGY METHOD 02/26/2024 10:[address] [facility] MCHC 30.5(L) 32.0 - 37.0 g/dL LAB HEMETOLOGY METHOD 02/26/2024 10:[address] [facility] RDW 14.1 11.0 - 15.0 % LAB HEMETOLOGY METHOD 02/26/2024 10:[address] [facility] Platelets 612(H) 130 - 400 K/mcL LAB HEMETOLOGY METHOD 02/26/2024 10:26 AM EST [facility] MPV 9.6 7.0 - 11.0 FL LAB HEMETOLOGY METHOD 02/26/2024 10:26 AM EST [facility] NRBC 0.0 <1.0 % LAB HEMETOLOGY METHOD 02/26/2024 10:26 AM EST [facility] NRBC Absolute 0.00 <0.10 K/mcL LAB HEMETOLOGY METHOD 02/26/2024 10:26 AM EST [facility] Blood Venous blood specimen / Unknown Venipuncture / Unknown 02/26/2024 5:07 AM EST 02/26/2024 9:29 AM EST us Rakesh Bullock MD LAB BLOOD ORDERABLES Final Resu lt [facility] [address] [place] [address], documented in this encounter Visit Diagnoses Diagnosis Essential (primary) hypertension Unspecified essential hypertension documented in this encounter Additional Health Concerns Infection Onset Date Last Indicated Resolved Time MRSA 02/19/2024 06/13/2024 06/19/2024 12:0 3 PM EDT MRSA 06/27/2024 06/27/2024 07/01/2024 7:30 AM EDT MRSA 06/27/2024 06/27/2024 07/02/2024 1:23 PM EDT documented as of this encounter Care Teams Bowling Ball Finisher Relationship Specialty Start Date End Date Allyson Fairchild NP [address] [address] PCP - General Family Medicine 02/18/24 documented as of this encounter
--- OUTSIDE RECORDS SUMMARY | 2024-12-03 09:53 | XMS_ITS | Encounter Summary ---
Author Organization [facility] Address [address] [place] [address] Care Team Providers Care Nitrating Acid Mixer Name Role Phone Allyson Fairchild NP Primary Care Provider [phone] Encounter Details Date Type Department Care Team (Latest Contact Info) Description 03/07/2024 Lab Requisition [facility] - Main Lab [address] [facility] [place] [address] Rakesh Bullock MD [address] [place] [address] Methicillin resistant Staphylococcus aureus infection, [...] Info) Description 12/03/2024 12:45 PM EDT Appointment [facility] Pulmonary [address] [place] [phone] 12/12/2024 12:30 PM EST Office Visit [facility] Cardiology - [place] [address] [place] [phone] Rodríguez Meza MD [address] [place] [address] 02/18/2025 10:00 AM EST Office Visit Infectious Disease - [place] [address] [place] [phone] Daria Woodall MD [address] [place], [place] [phone] documented as of this encounter Procedures Procedure Name Priority Date/Time Associated Diagnosis Comments COMPLETE BLOOD COUNT Routine 03/10/2024 6:15 AM EST Methicillin resistant Staphylococcus aureus infection, unspecified site Essential (primary) hypertension COMPREHENSIVE METABOLIC PANEL Routine 03/10/2024 6:15 AM EST Methicillin resistant Staphylococcus aureus infection, unspecified site Essential (primary) hypertension documented in this encounter Results * (ABNORMAL) Comprehensive metabolic panel (03/10/2024 6:15 AM EST) Sodium 135 133 - 145 mmol/L LAB CHEMISTRY METHOD 03/10/2024 10:47 AM EST [facility] Potassium 4.5 3.5 - 5.5 mmol/L LAB CHEMISTRY METHOD 03/10/2024 10:47 AM EST [facility] Chloride 106 96 - 110 mmol/L LAB CHEMISTRY METHOD 03/10/2024 10:47 AM EST [facility] CO2 22 21 - 32 mmol/L LAB CHEMISTRY METHOD 03/10/2024 10:47 AM EST [facility] Anion Gap 7 3 - 11 LAB CHEMISTRY METHOD 03/10/2024 10:47 AM [facility] Glucose 90 70 - 100 mg/dL LAB CHEMISTRY METHOD 03/10/2024 10:47 AM [facility] BUN 12 5 - 25 mg/dL LAB CHEMISTRY METHOD 03/10/2024 10:47 AM [facility] Creatinine 0.49(L) 0.50 - 1.10 mg/dL LAB CHEMISTRY METHOD 03/10/2024 10:47 AM [facility] eGFR 98 >=60 mL/min/1. 73m2 LAB CHEMISTRY METHOD 03/10/2024 10:47 AM [facility] Comment:Calculation based on the Chronic Kidney Disease Epidemiology Collaboration (CKD-EPI) equation refit without adjustment for race. BUN/Creatinine Ratio 24.5 LAB CHEMISTRY METHOD 03/10/2024 10:47 AM [facility] Calcium 8.9 8.5 - 10.5 mg/dL LAB CHEMISTRY METHOD 03/10/2024 10:47 AM [facility] AST (SGOT) 14 10 - 42 unit/L LAB CHEMISTRY METHOD 03/10/2024 10:47 AM [facility] ALT (SGPT) 26 10 - 60 unit/L LAB CHEMISTRY METHOD 03/10/2024 10:47 AM [facility] Alkaline Phosphatase 100 42 - 121 unit/L LAB CHEMISTRY METHOD 03/10/2024 10:47 AM [facility] Total Protein 6.7 6.0 - 8.0 g/dL LAB CHEMISTRY METHOD 03/10/2024 10:47 AM [facility] Albumin 2.3(L) 3.2 - 5.0 g/dL LAB CHEMISTRY METHOD 03/10/2024 10:47 AM [facility] Total Bilirubin 0.3 0.0 - 1.4 mg/dL LAB CHEMISTRY METHOD 03/10/2024 10:47 AM [facility] Blood Venous blood specimen / Unknown Venipuncture / Unknown 03/10/2024 6:15 AM EST 03/10/2024 10:04 AM EST Rakesh Bullock MD LAB BLOOD ORDERABLES Final Resu lt [facility] [address] [place] [address], * (ABNORMAL) Complete blood count (03/10/2024 6:15 AM EST) WBC 7.3 4.8 - 10.8 K/mcL LAB HEMETOLOGY METHOD 03/10/2024 10:35 AM [facility] RBC 3.10(L) 3.80 - 4.80 M/mcL LAB HEMETOLOGY METHOD 03/10/2024 10:35 AM [facility] Hemoglobin 8.7(L) 11.5 - 16.0 g/dL LAB HEMETOLOGY METHOD 03/10/2024 10:35 AM [facility] Hematocrit 28.0(L) 35.0 - 47.0 % LAB HEMETOLOGY METHOD 03/10/2024 10:35 AM [facility] MCV 91.2 79.0 - 98.0 FL LAB HEMETOLOGY METHOD 03/10/2024 10:35 AM [facility] MCH 28.3 27.0 - 32.0 pcg LAB HEMETOLOGY METHOD 03/10/2024 10:35 AM [facility] MCHC 31.1(L) 32.0 - 37.0 g/dL LAB HEMETOLOGY METHOD 03/10/2024 10:35 AM [facility] RDW 15.2(H) 11.0 - 15.0 % LAB HEMETOLOGY METHOD 03/10/2024 10:35 AM [facility] Platelets 434(H) 130 - 400 K/mcL LAB HEMETOLOGY METHOD 03/10/2024 10:35 AM EST [facility] MPV 9.3 7.0 - 11.0 FL LAB HEMETOLOGY METHOD 03/10/2024 10:35 AM EST [facility] NRBC 0.0 <1.0 % LAB HEMETOLOGY METHOD 03/10/2024 10:35 AM EST [facility] NRBC Absolute 0.00 <0.10 K/mcL LAB HEMETOLOGY METHOD 03/10/2024 10:35 AM EST [facility] Blood Venous blood specimen / Unknown Venipuncture / Unknown 03/10/2024 6:15 AM EST 03/10/2024 10:01 AM EST Rakesh Bullock MD LAB BLOOD ORDERABLES Final Resu lt [facility] [address] [place] [address], documented in this encounter Visit Diagnoses Diagnosis Methicillin resistant Staphylococcus aureus infection, unspecified site Essential (primary) hypertension Unspecified essential hypertension documented in this encounter Additional Health Concerns Infection Onset Date Last Indicated Resolved Time MRSA 02/19/2024 06/13/2024 06/19/2024 12:0 3 PM EDT MRSA 06/27/2024 06/27/2024 07/01/2024 7:30 AM EDT MRSA 06/27/2024 06/27/2024 07/02/2024 1:23 PM EDT documented as of this encounter Care Teams Nitrating Acid Mixer Relationship Specialty Start Date End Date Allyson Fairchild NP [address] [address] PCP - General Family Medicine 02/18/24 documented as of this encounter
--- OUTSIDE RECORDS SUMMARY | 2024-12-03 09:53 | XMS_ITS | Encounter Summary ---
Author Organization [facility] [address] Address [address] [place] [address] Care Team Providers Care Manual Qa Tester Name Role Phone Allyson Fairchild NP Primary Care Provider [phone] Encounter Details Date Type Department Care Team (Latest Contact Info) Description 07/04/2024 Lab Requisition [facility] - Main Lab 299 [facility] [place] [address] Rakesh Bullock MD [address] [place] [address] Methicillin resistant Staphylococcus aureus infection [...] Info) Description 12/03/2024 12:45 PM EDT Appointment [facility] Pulmonary [address] [place] [address] 12/12/2024 12:30 PM EST Office Visit [facility] Cardiology - [place] [address] [place] [phone] Rodríguez Meza MD [address] [place], [place] [phone] 02/18/2025 10:00 AM EST Office Visit Infectious Disease [facility] [address] [place] [phone] Daria Woodall MD [facility] [address] [place] [address] documented as of this encounter Procedures Procedure Name Priority Date/Time Associated Diagnosis Comments CBC WITH AUTO DIFFERENTIAL Routine 07/07/2024 8:56 AM EDT 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, thoracic region Essential (primary) hypertension Osteomyelitis of vertebra, thoracic region (CMS/HCC V24, CMS/HCC V28) SEDIMENTATION RATE Routine 07/07/2024 8: 56 AM EDT 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, thoracic region Essential (primary) hypertension Osteomyelitis of vertebra, thoracic region (CMS/HCC V24, CMS/HCC V28) CBC AND DIFFERENTIAL Routine 07/07/2024 8:56 AM EDT 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, thoracic region Essential (primary) hypertension Osteomyelitis of vertebra, thoracic region (CMS/HCC V24, CMS/HCC V28) C-REACTIVE PROTEIN Routine 07/07/2024 8: 56 AM EDT 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, thoracic region Essential (primary) hypertension Osteomyelitis of vertebra, thoracic region (CMS/HCC V24, CMS/HCC V28) VANCOMYCIN, RANDOM Routine 07/07/2024 8: 56 AM EDT 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, thoracic region Essential (primary) hypertension Osteomyelitis of vertebra, thoracic region (CMS/HCC V24, CMS/HCC V28) COMPREHENSIVE METABOLIC PANEL Routine 07/07/2024 8:56 AM EDT 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, thoracic region Essential (primary) hypertension Osteomyelitis of vertebra, thoracic region (CMS/HCC V24, CMS/HCC V28) documented in this encounter Results * Vancomycin random (07/07/2024 8:56 AM EDT) Pathologist [facility] Vancomycin Rm 19.6 mcg/mL LAB CHEMISTRY METHOD 07/07/2024 1:03 PM EDT [facility] Blood Venous blood specimen / Unknown Venipuncture / Unknown 07/07/2024 8:56 AM EDT 07/07/2024 10:47 AM EDT us Rakesh Bullock MD LAB BLOOD ORDERABLES Final Resu lt [facility] [address] [place] [address], * (ABNORMAL) CBC auto differential (07/07/2024 8:56 AM EDT) [facility] WBC 7.1 4.8 - 10.8 K/mcL LAB HEMETOLOGY METHOD 07/07/2024 11:18 AM [facility] RBC 3.70(L) 3.80 - 4.80 M/[facility] LAB HEMETOLOGY METHOD 07/07/2024 11:18 AM [facility] Hemoglobin 9.9(L) 11.5 - 16.0 g/dL LAB HEMETOLOGY METHOD 07/07/2024 11:18 AM [facility] Hematocrit 32.7(L) 35.0 - 47.0 % LAB HEMETOLOGY METHOD 07/07/2024 11:18 AM EDT [facility] MCV 87.4 79.0 - 98.0 FL LAB HEMETOLOGY METHOD 07/07/2024 11:18 AM [facility] MCH 26.5(L) 27.0 - 32.0 pcg LAB HEMETOLOGY METHOD 07/07/2024 11:18 AM [facility] MCHC 30.3(L) 32.0 - 37.0 g/dL LAB HEMETOLOGY METHOD 07/07/2024 11:18 AM [facility] RDW 13.8 11.0 - 15.0 % LAB HEMETOLOGY METHOD 07/07/2024 11:18 AM [facility] Platelets 402(H) 130 - 400 K/mcL LAB HEMETOLOGY METHOD 07/07/2024 11:18 AM [facility] MPV 9.5 7.0 - 11.0 FL LAB HEMETOLOGY METHOD 07/07/2024 11:18 AM [facility] NRBC 0.0 <1.0 % LAB HEMETOLOGY METHOD 07/07/2024 11:18 AM [facility] NRBC Absolute 0.00 <0.10 K/mcL LAB HEMETOLOGY METHOD 07/07/2024 11:18 AM [facility] Neutrophils Relative 61.3 % LAB HEMETOLOGY METHOD 07/07/2024 11:18 AM [facility] Lymphocytes Relative 20.1 % LAB HEMETOLOGY METHOD 07/07/2024 11:18 AM [facility] Monocytes Relative 12.1 % LAB HEMETOLOGY METHOD 07/07/2024 11:18 AM [facility] Eosinophils Relative 5.1 % LAB HEMETOLOGY METHOD 07/07/2024 11:18 AM [facility] Basophils Relative 0.7 % LAB HEMETOLOGY METHOD 07/07/2024 11:18 AM [facility] Immature Granulocytes Relative 0.7 % LAB HEMETOLOGY METHOD 07/07/2024 11:18 AM [facility] Neutrophils Absolute 4.36 1.50 - 7.00 K/mcL LAB HEMETOLOGY METHOD 07/07/2024 11:18 AM [facility] Lymphocytes Absolute 1.43 1.00 - 5.00 K/mcL LAB HEMETOLOGY METHOD 07/07/2024 11:18 AM EDT [facility] Monocytes Absolute 0.86 0.20 - 1.00 K/[facility] LAB HEMETOLOGY METHOD 07/07/2024 11:18 AM EDT [facility] Eosinophils Absolute 0.36 0.00 - 0.50 K/[facility] LAB HEMETOLOGY METHOD 07/07/2024 11:18 AM EDT [facility] Basophils Absolute 0.05 0.00 - 0.20 K/[facility] LAB HEMETOLOGY METHOD 07/07/2024 11:18 AM EDT [facility] Immature Granulocytes Absolute 0.05(H) 0.00 - 0.03 K/[facility] LAB HEMETOLOGY METHOD 07/07/2024 11:18 AM EDT [facility] Blood Venous blood specimen / Unknown Venipuncture / Unknown 07/07/2024 8:56 AM EDT 07/07/2024 10:47 AM EDT us Rakesh Bullock MD LAB BLOOD ORDERABLES Final Resu lt [facility] [address] [place] [address], [place] [phone] * (ABNORMAL) Sedimentation rate (07/07/2024 8:56 AM EDT) Sed Rate 105(H) 0 - 30 mm/hr LAB HEMETOLOGY METHOD 07/07/2024 11:28 AM EDT [facility] Blood Venous blood specimen / Unknown Venipuncture / Unknown 07/07/2024 8:56 AM EDT 07/07/2024 10:47 AM EDT us Rakesh Bullock MD LAB BLOOD ORDERABLES Final Resu lt [facility] [address] [place] [address], [place] [phone] * (ABNORMAL) C-reactive protein (07/07/2024 8:56 AM EDT) [facility] C-Reactive Protein 3.61(H) <=0.50 mg/dL LAB CHEMISTRY METHOD 07/07/2024 1:05 PM [facility] Blood Venous blood specimen / Unknown Venipuncture / Unknown 07/07/2024 8:56 AM EDT 07/07/2024 10:47 AM EDT Rakesh Bullock MD LAB BLOOD ORDERABLES Final Resu lt [facility] [address] [place] [address], [place] [phone] * (ABNORMAL) Comprehensive metabolic panel (07/07/2024 8:56 AM EDT) [facility] Sodium 138 133 - 145 mmol/L LAB CHEMISTRY METHOD 07/07/2024 1:05 PM [facility] Potassium 4.0 3.5 - 5.5 mmol/L LAB CHEMISTRY METHOD 07/07/2024 1:05 PM [facility] Chloride 100 96 - 110 mmol/L LAB CHEMISTRY METHOD 07/07/2024 1:05 PM [facility] CO2 28 21 - 32 mmol/L LAB CHEMISTRY METHOD 07/07/2024 1:05 PM [facility] Anion Gap 10 3 - 11 LAB CHEMISTRY METHOD 07/07/2024 1:05 PM [facility] Glucose 84 70 - 100 mg/dL LAB CHEMISTRY METHOD 07/07/2024 1:05 PM [facility] BUN 8 5 - 25 mg/dL LAB CHEMISTRY METHOD 07/07/2024 1:05 PM [facility] Creatinine 1.03 0.50 - 1.10 mg/dL LAB CHEMISTRY METHOD 07/07/2024 1:05 PM [facility] eGFR 56(L) >=60 mL/min/1. 73m2 LAB CHEMISTRY METHOD 07/07/2024 1:05 PM [facility] Comment:Calculation based on the Chronic Kidney Disease Epidemiology Collaboration (CKD-EPI) equation refit without adjustment for race. BUN/Creatinine Ratio 7.8 LAB CHEMISTRY METHOD 07/07/2024 1:05 PM [facility] Calcium 9.5 8.5 - 10.5 mg/dL LAB CHEMISTRY METHOD 07/07/2024 1:05 PM [facility] AST (SGOT) 24 10 - 42 unit/L LAB CHEMISTRY METHOD 07/07/2024 1:05 PM [facility] ALT (SGPT) 14 10 - 60 unit/L LAB CHEMISTRY METHOD 07/07/2024 1:05 PM [facility] Alkaline Phosphatase 110 42 - 121 unit/L LAB CHEMISTRY METHOD 07/07/2024 1:05 PM [facility] Total Protein 6.8 6.0 - 8.0 g/dL LAB CHEMISTRY METHOD 07/07/2024 1:05 PM [facility] Albumin 3.0(L) 3.2 - 5.0 g/dL LAB CHEMISTRY METHOD 07/07/2024 1:05 PM [facility] Total Bilirubin 0.3 0.0 - 1.4 mg/dL LAB CHEMISTRY METHOD 07/07/2024 1:05 PM [facility] Blood Venous blood specimen / Unknown Venipuncture / Unknown 07/07/2024 8:56 AM EDT 07/07/2024 10:47 AM EDT us Rakesh Bullock MD LAB BLOOD ORDERABLES Final Resu lt [facility] [address] [place] [address], [place] [phone] documented in this encounter Visit Diagnoses Diagnosis 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
--- OUTSIDE RECORDS SUMMARY | 2024-12-03 09:53 | XMS_ITS | Encounter Summary ---
Author Organization [facility] Address [address] [place] [address] Care Team Providers Care Commander Internal Affairs Name Role Phone Allyson Fairchild NP Primary Care Provider [phone] Encounter Details Date Type Department Care Team (Latest Contact Info) Description 02/29/[address] [facility] - Main Lab 299 [facility] [place] [address] Rakesh Bullock MD [address] [place] [address] Osteomyelitis of vertebra, thoracolumbar region ([facility]/HCC V24, [facility] V28) Social History Tobacco Use Types Packs/Day [...] Appointment [facility] Pulmonary [address] [place] [phone] 12/12/2024 12:30 PM EST Office Visit [facility] Cardiology - [place] [address] [place] [phone] Rodríguez Meza MD [address] [place] [address] 02/18/2025 10:00 AM EST Office Visit Infectious Disease - [place] [address] [place] [phone] Daria Woodall MD [address] [place], [place] [phone] documented as of this encounter Procedures Procedure Name Priority Date/Time Associated Diagnosis Comments COMPLETE BLOOD COUNT Routine 02/29/2024 2:40 PM EST Osteomyelitis of vertebra, thoracolumbar region (CMS/HCC) documented in this encounter Results * (ABNORMAL) Complete blood count (02/29/2024 2:40 PM EST) WBC 9.2 4.8 - 10.8 K/mcL LAB HEMETOLOGY METHOD 02/29/2024 4:12 PM EST [facility] RBC 3.30(L) 3.80 - 4.80 M/mcL LAB HEMETOLOGY METHOD 02/29/2024 4:12 PM EST [facility] Hemoglobin 9.5(L) 11.5 - 16.0 g/dL LAB HEMETOLOGY METHOD 02/29/2024 4:12 PM [facility] Hematocrit 31.1(L) 35.0 - 47.0 % LAB HEMETOLOGY METHOD 02/29/2024 4:12 PM EST [facility] MCV 95.7 79.0 - 98.0 FL LAB HEMETOLOGY METHOD 02/29/2024 4:12 PM [facility] MCH 29.2 27.0 - 32.0 pcg LAB HEMETOLOGY METHOD 02/29/2024 4:12 PM [facility] MCHC 30.5(L) 32.0 - 37.0 g/dL LAB HEMETOLOGY METHOD 02/29/2024 4:12 PM [facility] RDW 14.4 11.0 - 15.0 % LAB HEMETOLOGY METHOD 02/29/2024 4:12 PM [facility] Platelets 548(H) 130 - 400 K/mcL LAB HEMETOLOGY METHOD 02/29/2024 4:12 PM [facility] MPV 9.5 7.0 - 11.0 FL LAB HEMETOLOGY METHOD 02/29/2024 4:12 PM [facility] NRBC 0.0 <1.0 % LAB HEMETOLOGY METHOD 02/29/2024 4:12 PM [facility] NRBC Absolute 0.00 <0.10 K/mcL LAB HEMETOLOGY METHOD 02/29/2024 4:12 PM [facility] Blood Venous blood specimen / Unknown Venipuncture / Unknown 02/29/2024 2:40 PM EST 02/29/2024 3:40 PM EST us Rakesh Bullock MD LAB BLOOD ORDERABLES Final Resu lt [facility] [address] [place] [address], documented in this encounter Visit Diagnoses Diagnosis Osteomyelitis of vertebra, thoracolumbar region (CMS/HCC V24, CMS/HCC V28) documented in this encounter Additional Health Concerns Infection Onset Date Last Indicated Resolved Time MRSA 02/19/2024 06/13/2024 06/19/2024 12:0 3 PM EDT MRSA 06/27/2024 06/27/2024 07/01/2024 7:30 AM EDT MRSA 06/27/2024 06/27/2024 07/02/2024 1:23 PM EDT documented as of this encounter Care Teams Commander Internal Affairs Relationship Specialty Start Date End Date Allyson Fairchild NP [address] [place] [address] PCP - General Family Medicine 02/18/24 documented as of this encounter
--- OUTSIDE RECORDS SUMMARY | 2024-12-03 09:53 | XMS_ITS | Encounter Summary ---
Author Organization [facility] Address [address] [place] [address] Care Team Providers Care Certified Home Health Aide Name Role Phone Allyson Fairchild NP Primary Care Provider [phone] Encounter Details Date Type Department Care Team (Latest Contact Info) Description 03/05/2024 Lab Requisition [facility] - Main Lab 299 [facility] [place] [address] Rakesh Bullock MD [address] [place] [address] Methicillin resistant Staphylococcus aureus infection, [...] Description 12/03/2024 12:45 PM EDT Appointment [facility] Pulmonary [address] [place] [phone] 12/12/2024 12:30 PM EST Office Visit [facility] Cardiology - [place] [address] [place] [address] Rodríguez Meza MD [address] [place] [address] 02/18/2025 10:00 AM EST Office Visit Infectious Disease - [place] [address] [place] [phone] Daria Woodall MD [address] [place], [place] [phone] documented as of this encounter Procedures Procedure Name Priority Date/Time Associated Diagnosis Comments COMPLETE BLOOD COUNT Routine 03/06/2024 5:34 AM EST Methicillin resistant Staphylococcus aureus infection, unspecified site Essential (primary) hypertension BASIC METABOLIC PANEL Routine 03/06/2024 5:34 AM EST Methicillin resistant Staphylococcus aureus infection, unspecified site Essential (primary) hypertension documented in this encounter Results * Basic metabolic panel (03/06/2024 5:34 AM EST) Sodium 135 133 - 145 mmol/L LAB CHEMISTRY METHOD 03/06/2024 1:08 PM EST [facility] Potassium 4.8 3.5 - 5.5 mmol/L LAB CHEMISTRY METHOD 03/06/2024 1:08 PM EST [facility] Chloride 107 96 - 110 mmol/L LAB CHEMISTRY METHOD 03/06/2024 1:08 PM EST [facility] CO2 23 21 - 32 mmol/L LAB CHEMISTRY METHOD 03/06/2024 1:08 PM EST [facility] Anion Gap 5 3 - 11 LAB CHEMISTRY METHOD 03/06/2024 1:08 PM EST [facility] Glucose 78 70 - 100 mg/dL LAB CHEMISTRY METHOD 03/06/2024 1:08 PM [facility] BUN 13 5 - 25 mg/dL LAB CHEMISTRY METHOD 03/06/2024 1:08 PM [facility] Creatinine 0.57 0.50 - 1.10 mg/dL LAB CHEMISTRY METHOD 03/06/2024 1:08 PM [facility] eGFR 94 >=60 mL/min/1. 73m2 LAB CHEMISTRY METHOD 03/06/2024 1:08 PM [facility] Comment:Calculation based on the Chronic Kidney Disease Epidemiology Collaboration (CKD-EPI) equation refit without adjustment for race. BUN/Creatinine Ratio 22.8 LAB CHEMISTRY METHOD 03/06/2024 1:08 PM [facility] Calcium 9.2 8.5 - 10.5 mg/dL LAB CHEMISTRY METHOD 03/06/2024 1:08 PM [facility] Blood Venous blood specimen / Unknown Venipuncture / Unknown 03/06/2024 5:34 AM EST 03/06/2024 11:18 AM EST us Rakesh Bullock MD LAB BLOOD ORDERABLES Final Resu lt [facility] [address] [place] [address], * (ABNORMAL) Complete blood count (03/06/2024 5:34 AM EST) WBC 6.2 4.8 - 10.8 K/mcL LAB HEMETOLOGY METHOD 03/06/2024 11:57 AM [facility] RBC 3.00(L) 3.80 - 4.80 M/mcL LAB HEMETOLOGY METHOD 03/06/2024 11:57 AM [facility] Hemoglobin 8.8(L) 11.5 - 16.0 g/dL LAB HEMETOLOGY METHOD 03/06/2024 11:57 AM [facility] Hematocrit 28.7(L) 35.0 - 47.0 % LAB HEMETOLOGY METHOD 03/06/2024 11:57 AM [facility] MCV 95.0 79.0 - 98.0 FL LAB HEMETOLOGY METHOD 03/06/2024 11:57 AM [facility] MCH 29.1 27.0 - 32.0 pcg LAB HEMETOLOGY METHOD 03/06/2024 11:57 AM [facility] MCHC 30.7(L) 32.0 - 37.0 g/dL LAB HEMETOLOGY METHOD 03/06/2024 11:57 AM [facility] RDW 14.9 11.0 - 15.0 % LAB HEMETOLOGY METHOD 03/06/2024 11:57 AM [facility] Platelets 463(H) 130 - 400 K/mcL LAB HEMETOLOGY METHOD 03/06/2024 11:57 AM [facility] MPV 9.5 7.0 - 11.0 FL LAB HEMETOLOGY METHOD 03/06/2024 11:57 AM [facility] NRBC 0.0 <1.0 % LAB HEMETOLOGY METHOD 03/06/2024 11:57 AM [facility] NRBC Absolute 0.00 <0.10 K/mcL LAB HEMETOLOGY METHOD 03/06/2024 11:57 AM [facility] Blood Venous blood specimen / Unknown Venipuncture / Unknown 03/06/2024 5:34 AM EST 03/06/2024 11:18 AM EST us Rakesh Bullock MD LAB BLOOD ORDERABLES Final Resu lt [facility] [address] [place] [address], documented in this encounter Visit Diagnoses Diagnosis Methicillin resistant Staphylococcus aureus infection, unspecified site Essential (primary) hypertension Unspecified essential hypertension documented in this encounter Additional Health Concerns Infection Onset Date Last Indicated Resolved Time MRSA 02/19/2024 06/13/2024 06/19/2024 12:0 3 PM EDT MRSA 06/27/2024 06/27/2024 07/01/2024 7:30 AM EDT MRSA 06/27/2024 06/27/2024 07/02/2024 1:23 PM EDT documented as of this encounter Care Teams Certified Home Health Aide Relationship Specialty Start Date End Date Allyson Fairchild NP [address] [place] [address] PCP - General Family Medicine 02/18/24 documented as of this encounter
--- OUTSIDE RECORDS SUMMARY | 2024-12-03 09:53 | XMS_ITS | Encounter Summary ---
Author Organization [facility] Address [address] [place] [address] Care Team Providers Care Industrial Spraypainter Name Role Phone Allyson Fairchild NP Primary Care Provider [phone] Encounter Details Date Type Department Care Team (Latest Contact Info) Description 08/07/2024 Lab Requisition [facility] - Main Lab 299 [facility] [place] [address] Rakesh Bullock MD [address] [place] [address] Methicillin resistant Staphylococcus aureus infection [...] Description 12/03/2024 12:45 PM EDT Appointment [facility] Pulmonary [address] [place] [address] 12/12/2024 12:30 PM EST Office Visit [facility] Cardiology - [place] [address] [place] [phone] Rodríguez Meza MD [address] [place], [place] [phone] 02/18/2025 10:00 AM EST Office Visit Infectious Disease [facility] [address] [place] [phone] Daria Woodall MD [address] 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
--- OUTSIDE RECORDS SUMMARY | 2024-12-03 09:53 | XMS_ITS | Encounter Summary ---
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 V28) Social History Tobacco Use Types Packs/Day [...] [facility] Pulmonary [address] [place] [address] 12/12/2024 12:30 PM EST Office Visit [facility] Cardiology [facility] [address] [place] [address] Rodríguez Meza MD [address] [place], [place] [phone] 02/18/2025 10:00 AM EST Office Visit Infectious Disease [facility] [address] [place] [phone] Daria Woodall MD [address] [place] [address] documented as of this encounter Visit Diagnoses Diagnosis 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 V24, [facility] V28) documented in this encounter Care Teams Voyage Management System Operator Relationship Specialty Start Date End Date Allyson Fairchild NP [address] [address] PCP - General Family Medicine 02/18/24 documented as of this encounter
--- OUTSIDE RECORDS SUMMARY | 2024-12-03 09:53 | XMS_ITS | Encounter Summary ---
Author Organization [facility] Address [address] [place] [address] Care Team Providers Care Automotive Brake Technician Name Role Phone Allyson Fairchild NP Primary Care Provider [phone] Encounter Details Date Type Department Care Team (Latest Contact Info) Description 07/03/2024 Lab Requisition [facility] - Main Lab [address] [facility] [place] [address] Rakesh Bullock MD [address] [place] [address] Osteomyelitis of vertebra, thoracic region ([facility] V24, [facility] V28); Methicillin resistant Staphylococcus aureus infection as [...] Info) Description 12/03/2024 12:45 PM EDT Appointment [facility] Pulmonary [address] [place] [address] 12/12/2024 12:30 PM EST Office Visit [facility] Cardiology - [place] [address] [place] [phone] Rodríguez Meza MD [address] [place], [place] [id number] 02/18/2025 10:00 AM EST Office Visit Infectious Disease [facility] [address] [place] [phone] [facility]all [facility] [address] [place] [address] documented as of this encounter Procedures Procedure Name Priority Date/Time Associated Diagnosis Comments CBC WITH AUTO DIFFERENTIAL Routine 07/03/2024 8:21 AM EDT Osteomyelitis of vertebra, thoracic region (CMS/HCC V24, CMS/HCC V28) 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, thoracic region Essential (primary) hypertension CBC AND DIFFERENTIAL Routine 07/03/2024 8:21 AM EDT Osteomyelitis of vertebra, thoracic region (CMS/HCC V24, CMS/HCC V28) 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, thoracic region Essential (primary) hypertension COMPREHENSIVE METABOLIC PANEL Routine 07/03/2024 8:21 AM EDT Osteomyelitis of vertebra, thoracic region (CMS/HCC V24, CMS/HCC V28) 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, thoracic region Essential (primary) hypertension documented in this encounter Results * (ABNORMAL) CBC auto differential (07/03/2024 8:21 AM EDT) [facility] WBC 8.0 4.8 - 10.8 K/mcL LAB HEMETOLOGY METHOD 07/03/2024 10:38 AM [facility] LAB RBC 3.50(L) 3.80 - 4.80 M/mcL LAB HEMETOLOGY METHOD 07/03/2024 10:38 AM [facility] LAB Hemoglobin 9.4(L) 11.5 - 16.0 g/dL LAB HEMETOLOGY METHOD 07/03/2024 10:38 AM [facility] LAB Hematocrit 30.2(L) 35.0 - 47.0 % LAB HEMETOLOGY METHOD 07/03/2024 10:38 AM [facility] LAB MCV 87.3 79.0 - 98.0 FL LAB HEMETOLOGY METHOD 07/03/2024 10:38 AM [facility] LAB MCH 27.2 27.0 - 32.0 pcg LAB HEMETOLOGY METHOD 07/03/2024 10:38 AM [facility] LAB MCHC 31.1(L) 32.0 - 37.0 g/dL LAB HEMETOLOGY METHOD 07/03/2024 10:38 AM [facility] LAB RDW 13.9 11.0 - 15.0 % LAB HEMETOLOGY METHOD 07/03/2024 10:38 AM [facility] LAB Platelets 367 130 - 400 K/mcL LAB HEMETOLOGY METHOD 07/03/2024 10:38 AM [facility] LAB MPV 9.7 7.0 - 11.0 FL LAB HEMETOLOGY METHOD 07/03/2024 10:38 AM [facility] NRBC 0.0 <1.0 % LAB HEMETOLOGY METHOD 07/03/2024 10:38 AM [facility] LAB NRBC Absolute 0.00 <0.10 K/mcL LAB HEMETOLOGY METHOD 07/03/2024 10:38 AM [facility] LAB Neutrophils Relative 68.1 % LAB HEMETOLOGY METHOD 07/03/2024 10:38 AM [facility] Lymphocytes Relative 15.0 % LAB HEMETOLOGY METHOD 07/03/2024 10:38 AM [facility] Monocytes Relative 11.4 % LAB HEMETOLOGY METHOD 07/03/2024 10:38 AM [facility] Eosinophils Relative 4.5 % LAB HEMETOLOGY METHOD 07/03/2024 10:38 AM [facility] Basophils Relative 0.4 % LAB HEMETOLOGY METHOD 07/03/2024 10:38 AM [facility] Immature Granulocytes Relative 0.6 % LAB HEMETOLOGY METHOD 07/03/2024 10:[address] [facility] Neutrophils Absolute 5.44 1.50 - 7.00 K/mcL LAB HEMETOLOGY METHOD 07/03/2024 10:[address] [facility] Lymphocytes Absolute 1.20 1.00 - 5.00 K/mcL LAB HEMETOLOGY METHOD 07/03/2024 10:[address] [facility] Monocytes Absolute 0.91 0.20 - 1.00 K/mcL LAB HEMETOLOGY METHOD 07/03/2024 10:[address] [facility] Eosinophils Absolute 0.36 0.00 - 0.50 K/mcL LAB HEMETOLOGY METHOD 07/03/2024 10:[address] [facility] Basophils Absolute 0.03 0.00 - 0.20 K/mcL LAB HEMETOLOGY METHOD 07/03/2024 10:[address] [facility] Immature Granulocytes Absolute 0.05(H) 0.00 - 0.03 K/mcL LAB HEMETOLOGY METHOD 07/03/2024 10:38 AM [facility] Blood Venous blood specimen / Unknown Venipuncture / Unknown 07/03/2024 8:21 AM EDT 07/03/2024 10:01 AM EDT us Rakesh Bullock MD LAB BLOOD ORDERABLES Final Resu lt [facility] [address] [place] [address], * (ABNORMAL) Comprehensive metabolic panel (07/03/2024 8:21 AM EDT) Sodium 136 133 - 145 mmol/L LAB CHEMISTRY METHOD 07/03/2024 11:[address] [facility] Potassium 3.9 3.5 - 5.5 mmol/L LAB CHEMISTRY METHOD 07/03/2024 11:27 AM [facility] Chloride 99 96 - 110 mmol/L LAB CHEMISTRY METHOD 07/03/2024 11:27 AM [facility] CO2 31 21 - 32 mmol/L LAB CHEMISTRY METHOD 07/03/2024 11:27 AM [facility] Anion Gap 6 3 - 11 LAB CHEMISTRY METHOD 07/03/2024 11:27 AM [facility] Glucose 96 70 - 100 mg/dL LAB CHEMISTRY METHOD 07/03/2024 11:27 AM [facility] BUN 13 5 - 25 mg/dL LAB CHEMISTRY METHOD 07/03/2024 11:27 AM [facility] Creatinine 0.84 0.50 - 1.10 mg/dL LAB CHEMISTRY METHOD 07/03/2024 11:27 AM [facility] eGFR 72 >=60 mL/min/1. 73m2 LAB CHEMISTRY METHOD 07/03/2024 11:27 AM [facility] Comment:Calculation based on the Chronic Kidney Disease Epidemiology Collaboration (CKD-EPI) equation refit without adjustment for race. BUN/Creatinine Ratio 15.5 LAB CHEMISTRY METHOD 07/03/2024 11:27 AM [facility] Calcium 9.0 8.5 - 10.5 mg/dL LAB CHEMISTRY METHOD 07/03/2024 11:27 AM [facility] AST (SGOT) 11 10 - 42 unit/L LAB CHEMISTRY METHOD 07/03/2024 11:27 AM [facility] ALT (SGPT) 10 10 - 60 unit/L LAB CHEMISTRY METHOD 07/03/2024 11:27 AM [facility] Alkaline Phosphatase 93 42 - 121 unit/L LAB CHEMISTRY METHOD 07/03/2024 11:27 AM [facility] Total Protein 6.2 6.0 - 8.0 g/dL LAB CHEMISTRY METHOD 07/03/2024 11:[address] [facility] Albumin 2.6(L) 3.2 - 5.0 g/dL LAB CHEMISTRY METHOD 07/03/2024 11:[address] [facility] Total Bilirubin 0.3 0.0 - 1.4 mg/dL LAB CHEMISTRY METHOD 07/03/2024 11:[address] [facility] Blood Venous blood specimen / Unknown Venipuncture / Unknown 07/03/2024 8:21 AM EDT 07/03/2024 10:01 AM EDT us Rakesh Bullock MD LAB BLOOD ORDERABLES Final Resu lt 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
--- OUTSIDE RECORDS SUMMARY | 2024-12-03 09:53 | XMS_ITS | Encounter Summary ---
Author Organization [facility] Address [address] [place] [address] Care Team Prov[address] Care [address] Man Name Role Phone Allyson Fairchild NP Primary Care Provider [phone] Encounter Details Date Type Department Care Team (Latest Contact Info) Description 07/18/2024 Lab Requisition [facility] - Main Lab 299 [facility] [place] [address] Rakesh Bullock MD [address] [place] [address] Methicillin resistant Staphylococcus aureus infection [...] Info) Description 12/03/2024 12:45 PM EDT Appointment [facility] Pulmonary [address] [place] [address] 12/12/2024 12:30 PM EST Office Visit [facility] Cardiology - [place] [address] [place] [phone] Rodríguez Meza MD [address] [place], [place] [phone] 02/18/2025 10:00 AM EST Office Visit Infectious Disease [facility] [address] [place] [phone] Daria [facility]all MD [address] [facility] [address] [place] [address] documented as of this encounter Procedures Procedure Name Priority Date/Time Associated Diagnosis Comments CBC WITH AUTO DIFFERENTIAL Routine 07/21/2024 8:56 AM EDT 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, thoracic region Essential (primary) hypertension Osteomyelitis of vertebra, thoracic region (CMS/HCC V24, CMS/HCC V28) SEDIMENTATION RATE Routine 07/21/2024 8: 56 AM EDT 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, thoracic region Essential (primary) hypertension Osteomyelitis of vertebra, thoracic region (CMS/HCC V24, CMS/HCC V28) CBC AND DIFFERENTIAL Routine 07/21/2024 8:56 AM EDT 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, thoracic region Essential (primary) hypertension Osteomyelitis of vertebra, thoracic region (CMS/HCC V24, CMS/HCC V28) C-REACTIVE PROTEIN Routine 07/21/2024 8: 56 AM EDT 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, thoracic region Essential (primary) hypertension Osteomyelitis of vertebra, thoracic region (CMS/HCC V24, CMS/HCC V28) VANCOMYCIN, TROUGH Routine 07/21/2024 8: 56 AM EDT 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, thoracic region Essential (primary) hypertension Osteomyelitis of vertebra, thoracic region (CMS/HCC V24, CMS/HCC V28) COMPREHENSIVE METABOLIC PANEL Routine 07/21/2024 8:56 AM EDT 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, thoracic region Essential (primary) hypertension Osteomyelitis of vertebra, thoracic region (CMS/HCC V24, CMS/HCC V28) documented in this encounter Results * Vancomycin, trough (07/21/2024 8:56 AM EDT) Pathologist [facility] Vancomycin Trough 17.6 10.0 - 20.0 mcg/mL LAB CHEMISTRY METHOD 07/21/2024 11:23 AM EDT [facility] LAB Blood Venous blood specimen / Unknown Venipuncture / Unknown 07/21/2024 8:56 AM EDT 07/21/2024 10:40 AM EDT Rakesh Bullock MD LAB BLOOD ORDERABLES Final Resu lt [facility] LAB [address] [place] [address], * (ABNORMAL) CBC auto differential (07/21/2024 8:56 AM EDT) [facility] WBC 5.8 4.8 - 10.8 K/mcL LAB HEMETOLOGY METHOD 07/21/2024 11:12 AM T [facility] LAB RBC 3.90 3.80 - 4.80 M/mcL LAB HEMETOLOGY METHOD 07/21/2024 11:12 AM [facility] LAB Hemoglobin 10.3(L) 11.5 - 16.0 g/dL LAB HEMETOLOGY METHOD 07/21/2024 11:12 AM [facility] LAB Hematocrit 33.8(L) 35.0 - 47.0 % LAB HEMETOLOGY METHOD 07/21/2024 11:12 AM [facility] LAB MCV 87.8 79.0 - 98.0 FL LAB HEMETOLOGY METHOD 07/21/2024 11:12 AM [facility] LAB MCH 26.8(L) 27.0 - 32.0 pcg LAB HEMETOLOGY METHOD 07/21/2024 11:12 AM [facility] LAB MCHC 30.5(L) 32.0 - 37.0 g/dL LAB HEMETOLOGY METHOD 07/21/2024 11:12 AM [facility] LAB RDW 14.1 11.0 - 15.0 % LAB HEMETOLOGY METHOD 07/21/2024 11:12 AM [facility] LAB Platelets 265 130 - 400 K/mcL LAB HEMETOLOGY METHOD 07/21/2024 11:12 AM [facility] LAB MPV 9.9 7.0 - 11.0 FL LAB HEMETOLOGY METHOD 07/21/2024 11:12 AM [facility] LAB NRBC 0.0 <1.0 % LAB HEMETOLOGY METHOD 07/21/2024 11:12 AM [facility] NRBC Absolute 0.00 <0.10 K/mcL LAB HEMETOLOGY METHOD 07/21/2024 11:12 AM [facility] Neutrophils Relative 61.7 % LAB HEMETOLOGY METHOD 07/21/2024 11:12 AM [facility] Lymphocytes Relative 19.1 % LAB HEMETOLOGY METHOD 07/21/2024 11:12 AM [facility] Monocytes Relative 10.2 % LAB HEMETOLOGY METHOD 07/21/2024 11:12 AM [facility] Eosinophils Relative 7.8 % LAB HEMETOLOGY METHOD 07/21/2024 11:12 AM [facility] Basophils Relative 0.7 % LAB HEMETOLOGY METHOD 07/21/2024 11:12 AM [facility] Immature Granulocytes Relative 0.5 % LAB HEMETOLOGY METHOD 07/21/2024 11:12 AM [facility] Neutrophils Absolute 3.56 1.50 - 7.00 K/mcL LAB HEMETOLOGY METHOD 07/21/2024 11:12 AM [facility] Lymphocytes Absolute 1.10 1.00 - 5.00 K/mcL LAB HEMETOLOGY METHOD 07/21/2024 11:12 AM EDT [facility] Monocytes Absolute 0.59 0.20 - 1.00 K/mcL LAB HEMETOLOGY METHOD 07/21/2024 11:12 AM EDT [facility] Eosinophils Absolute 0.45 0.00 - 0.50 K/mcL LAB HEMETOLOGY METHOD 07/21/2024 11:12 AM EDT [facility] Basophils Absolute 0.04 0.00 - 0.20 K/[facility] LAB HEMETOLOGY METHOD 07/21/2024 11:12 AM EDT [facility] LAB Immature Granulocytes Absolute 0.03 0.00 - 0.03 K/[facility] LAB HEMETOLOGY METHOD 07/21/2024 11:12 AM EDT [facility] LAB Blood Venous blood specimen / Unknown Venipuncture / Unknown 07/21/2024 8:56 AM EDT 07/21/2024 10:38 AM EDT us Rakesh Bullock MD LAB BLOOD ORDERABLES Final Resu lt [facility] [address] [place] [address], [place] [phone] * (ABNORMAL) Sedimentation rate (07/21/2024 8:56 AM EDT) Sed Rate 80(H) 0 - 30 mm/hr LAB HEMETOLOGY METHOD 07/21/2024 2:11 PM EDT [facility] LAB Blood Venous blood specimen / Unknown Venipuncture / Unknown 07/21/2024 8:56 AM EDT 07/21/2024 10:38 AM EDT us Rakesh Bullock MD LAB BLOOD ORDERABLES Final Resu lt [facility] [address] [place] [address], [place] [phone] * (ABNORMAL) C-reactive protein (07/21/2024 8:56 AM EDT) [facility] C-Reactive Protein 0.60(H) <=0.50 mg/dL LAB CHEMISTRY METHOD 07/21/2024 11:56 AM EDT [facility] Blood Venous blood specimen / Unknown Venipuncture / Unknown 07/21/2024 8:56 AM EDT 07/21/2024 10:40 AM EDT us Rakesh Bullock MD LAB BLOOD ORDERABLES Final Resu lt [facility] [address] [place] [address], [place] [phone] * Comprehensive metabolic panel (07/21/2024 8:56 AM EDT) [facility] Sodium 137 133 - 145 mmol/L LAB CHEMISTRY METHOD 07/21/2024 11:27 AM [facility] Potassium 4.3 3.5 - 5.5 mmol/L LAB CHEMISTRY METHOD 07/21/2024 11:27 AM [facility] Chloride 104 96 - 110 mmol/L LAB CHEMISTRY METHOD 07/21/2024 11:27 AM [facility] CO2 30 21 - 32 mmol/L LAB CHEMISTRY METHOD 07/21/2024 11:27 AM [facility] Anion Gap 3 3 - 11 LAB CHEMISTRY METHOD 07/21/2024 11:27 AM [facility] Glucose 88 70 - 100 mg/dL LAB CHEMISTRY METHOD 07/21/2024 11:27 AM [facility] BUN 13 5 - 25 mg/dL LAB CHEMISTRY METHOD 07/21/2024 11:27 AM [facility] Creatinine 0.96 0.50 - 1.10 mg/dL LAB CHEMISTRY METHOD 07/21/2024 11:27 AM [facility] eGFR 61 >=60 mL/min/1. 73m2 LAB CHEMISTRY METHOD 07/21/2024 11:27 AM [facility] Comment:Calculation based on the Chronic Kidney Disease Epidemiology Collaboration (CKD-EPI) equation refit without adjustment for race. BUN/Creatinine Ratio 13.5 LAB CHEMISTRY METHOD 07/21/2024 11:27 AM [facility] Calcium 9.8 8.5 - 10.5 mg/dL LAB CHEMISTRY METHOD 07/21/2024 11:27 AM [facility] AST (SGOT) 25 10 - 42 unit/L LAB CHEMISTRY METHOD 07/21/2024 11:27 AM [facility] ALT (SGPT) 21 10 - 60 unit/L LAB CHEMISTRY METHOD 07/21/2024 11:27 AM [facility] Alkaline Phosphatase 100 42 - 121 unit/L LAB CHEMISTRY METHOD 07/21/2024 11:27 AM [facility] Total Protein 6.5 6.0 - 8.0 g/dL LAB CHEMISTRY METHOD 07/21/2024 11:27 AM [facility] Albumin 3.2 3.2 - 5.0 g/dL LAB CHEMISTRY METHOD 07/21/2024 11:27 AM [facility] Total Bilirubin 0.4 0.0 - 1.4 mg/dL LAB CHEMISTRY METHOD 07/21/2024 11:27 AM [facility] Blood Venous blood specimen / Unknown Venipuncture / Unknown 07/21/2024 8:56 AM EDT 07/21/2024 10:40 AM EDT us Rakesh Bullock MD LAB BLOOD ORDERABLES Final Resu lt [facility] [address] [place] [address], [place] [phone] documented in this encounter Visit Diagnoses Diagnosis 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 V24, [facility] V28) documented in this encounter Care Teams Drive Man Relationship Specialty Start Date End Date Allyson Fairchild PHOTOENGRAVING ETCHER APPRENTICE [address] [place] [address] PCP - General Family Medicine 02/18/24 documented as of this encounter
== END 2024-12-02 08:55 | disposition home or self-care (01) ==
LOC: HO.HOSX 08:54
PROVIDERS: Visit Provider Orthopaedic Surgery
DX: M17.0 Bilateral primary osteoarthritis of knee (principal)
CPT/HCPCS: 73562; 99202

== ENCOUNTER 2024-12-02 12:59 | Outpatient (AMB) | payer MEDICARE, SELFPAY ==
--- NOTE | 2024-12-02 13:10 | MHC.OFFVIS ---
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 The patient describes her pains as sharp in nature. Most of the pain is along the medial aspects of her knee. Her symptoms have gotten worse over the last 5 years in spite of continued non operative treatments. The patient did have cortisone injections in the past by another provider which gave her minimal relief. She has failed the last 3 months of conservative treatment which has included Tylenol, anti-inflammatory medicines, gabapentin and a home exercise program. At this point her bilateral knee pains are interfering with her activities of daily living and her ability to sleep well through the night. She wishes to hold off on total knee replacement surgery for as long as possible. Allergies No Known Allergies Allergy (Verified 12/02/24 13:15) Medication List - Last Reconciled 12/02/24 by Papa Veliz MD duloxetine 30 mg PO DAILY gabapentin 300 mg PO BID PRN propranolol 10 mg PO DAILY PRN Physical Exam Const Other: Well-nourished well-developed very friendly female awake alert and oriented x3 in no acute distress Extrem Other: Bilateral knee examination shows minimal effusions, palpable crepitus with range of motion, pain with range of motion, no instability Results Reviewed Results Reviewed: X-rays of the patient's bilateral knees taken today show joint space narrowing, subchondral sclerosis, no acute bony abnormalities Assessment & Plan Assessment & Plan (1) Osteoarthritis of left knee: Code(s): M17.12 - Unilateral primary osteoarthritis, left knee Category: Medical (2) Osteoarthritis of right knee: Code(s): M17.11 - Unilateral primary osteoarthritis, right knee Category: Medical Plan Ms. Miller presents with bilateral knee pains due to osteoarthritis. I had a lengthy discussion with the patient regarding the treatment options. She wishes to hold off on surgery if at all possible. I agree with this plan. I will see if the patient's insurance company will cover a viscosupplementation injection, such as Durolane, for both of her knees. I will see her back once the injections are approved. Feel free to call me at any time should questions regarding her orthopedic management arise. Thank you very much for asking me to see this very friendly patient. I spent 22 minutes in reviewing the patient's records and imaging studies, seeing the patient and documenting in the medical record. Orders: Orders XR Knee Sudarshan 3V Today M25.561 - Pain in right knee, M25.562 - Pain in left knee Coding Level of Care Code New Pt Level 3 (61582) Complex EM visit Add On G2211 Diagnoses Osteoarthritis of left knee M17.12 Osteoarthritis of right knee M17.11
--- OUTSIDE RECORDS SUMMARY | 2024-12-02 16:26 | XMS_ITS ---
Author Name [facility] Organization Unknown Results Test Name/Text Value Interpretation Date Range Source eGFRcr SerPlBld CKD-EPI 2020 54.0 mL/min/1.73m2 09/09/2024 [facility] Creat Bld-mCnc 1.0 mg/dL 09/09/2024 0.5 - 1 [facility] Vancomycin Trough SerPl-mCnc 15.7 mcg/mL 07/02/2024 10 - 20 [facility] CRP SerPl-mCnc 10.7 mg/dL Above high normal 06/30/2024 - [facility] eGFRcr SerPlBld CKD-EPI 2020 66.0 mL/min/1.73m2 06/30/2024 - [facility] BUN/Creat SerPl 13.3 06/30/2024 12 - 20 [facility] CO2 SerPl-sCnc 31.0 mmol/L 06/30/2024 24 - 32 [facility] Potassium SerPl-sCnc 3.9 mmol/L 06/30/2024 3.5 - 5.1 [facility] Anion Gap SerPl Calc-sCnc 7.0 06/30/2024 5 - 14 [facility] Chloride SerPl-sCnc 98.0 mmol/L 06/30/2024 98 - 107 [facility] BUN SerPl-mCnc 12.0 mg/dL 06/30/2024 7 - 17 [facility] Sodium SerPl-sCnc 136.0 mmol/L 06/30/2024 135 - 14 5 [facility] Creat SerPl-mCnc 0.9 mg/dL 06/30/2024 0.5 - 1 CT [facility] Calcium SerPl-mCnc 9.3 mg/dL 06/30/2024 8.4 - 10.2 [facility] Glucose SerPl-mCnc 95.0 mg/dL 06/30/2024 70 - 99 [facility] PT Bld 12.8 sec 06/30/2024 10.5 - 13.3 [facility] INR PPP 1.1 06/30/2024 0.8 - 1.1 [facility] RDW RBC Auto 15.0 % 06/30/2024 12.1 - 16.2 [facility] Hct VFr Bld Auto 30.7 % Below low normal 06/30/2024 37 - 47 [facility] WBC # Bld Auto 8.7 K/mcL 06/30/2024 4 - 10.5 [facility] PMV Bld Auto 7.4 FL 06/30/2024 7.4 - 11.4 [facility] Hgb Bld-mCnc 10.0 g/dL Below low normal 06/30/2024 12.5 - 16 [facility] MCHC RBC Auto-EntMCnc 32.6 g/dL 06/30/2024 32 - 36 [facility] RBC Auto 83.9 FL 06/30/2024 78 - 100 [facility] MCH RBC Qn Auto 27.4 pcg 06/30/2024 25 - 33 [facility] RBC # Bld Auto 3.65 M/mcL Below low normal 06/30/2024 4.2 - 5.4 [facility] Platelet # Bld Auto 339.0 K/mcL 06/30/2024 150 - 450 [facility] Magnesium SerPl-mCnc 1.9 mg/dL 06/29/2024 1.7 - 2.8 [facility] Chloride SerPl-sCnc 100.0 mmol/L 06/29/2024 98 - 107 [facility] BUN/Creat SerPl 15.6 06/29/2024 12 - 20 [facility] Potassium SerPl-sCnc 3.8 mmol/L 06/29/2024 3.5 - 5.1 [facility] BUN SerPl-mCnc 14.0 mg/dL 06/29/2024 7 - 17 [facility] eGFRcr SerPlBld CKD-EPI 2020 66.0 mL/min/1.73m2 06/29/2024 - [facility] Calcium SerPl-mCnc 9.2 mg/dL 06/29/2024 8.4 - 10.2 [facility] Glucose SerPl-mCnc 89.0 mg/dL 06/29/2024 70 - 199 [facility] Anion Gap SerPl Calc-sCnc 7.0 06/29/2024 5 - 14 [facility] Creat SerPl-mCnc 0.9 mg/dL 06/29/2024 0.5 - 1 CT [facility] CO2 SerPl-sCnc 31.0 mmol/L 06/29/2024 24 - 32 [facility] Sodium SerPl-sCnc 138.0 mmol/L 06/29/2024 135 - 14 5 [facility] INR PPP 1.1 06/29/2024 0.8 - 1.1 [facility] PT Bld 12.1 sec 06/29/2024 10.5 - 13.3 [facility] RBC # Bld Auto 3.4 M/mcL Below low normal 06/29/2024 4.2 - 5 .4 [facility] RBC Auto 84.9 FL 06/29/2024 78 - 100 [facility] WBC # Bld Auto 10.1 K/mcL 06/29/2024 4 - 10.5 [facility] Hct VFr Bld Auto 28.9 % Below low normal 06/29/2024 37 - 47 [facility] RDW RBC Auto 15.4 % 06/29/2024 12.1 - 16.2 [facility] PMV Bld Auto 7.6 FL 06/29/2024 7.4 - 11.4 [facility] MCH RBC Qn Auto 27.4 pcg 06/29/2024 25 - 33 [facility] MCHC RBC Auto-EntMCnc 32.2 g/dL 06/29/2024 32 - 36 [facility] Hgb Bld-mCnc 9.3 g/dL Below low normal 06/29/2024 12.5 - 16 [facility] Platelet # Bld Auto 346.0 K/mcL 06/29/2024 150 - 450 [facility] Vancomycin Trough SerPl-mCnc 26.4 mcg/mL Above high normal 06/28/2024 10 - 20 [facility] Magnesium SerPl-mCnc 1.9 mg/dL 06/28/2024 1.7 - 2.8 [facility] CO2 SerPl-sCnc 30.0 mmol/L 06/28/2024 24 - 32 [facility] Glucose SerPl-mCnc 138.0 mg/dL 06/28/2024 70 - 199 [facility] Sodium SerPl-sCnc 136.0 mmol/L 06/28/2024 135 - 14 5 [facility] Chloride SerPl-sCnc 100.0 mmol/L 06/28/2024 98 - 107 [facility] BUN SerPl-mCnc 16.0 mg/dL 06/28/2024 7 - 17 [facility] Creat SerPl-mCnc 1.0 mg/dL 06/28/2024 0.5 - 1 CT [facility] Potassium SerPl-sCnc 4.5 mmol/L 06/28/2024 3.5 - 5.1 [facility] Anion Gap SerPl Calc-sCnc 6.0 06/28/2024 5 - 14 [facility] Calcium SerPl-mCnc 9.6 mg/dL 06/28/2024 8.4 - 10.2 [facility] BUN/Creat SerPl 16.0 06/28/2024 12 - 20 [facility] eGFRcr SerPlBld CKD-EPI 2020 59.0 mL/min/1.73m2 Below low normal 06/28/2024 - [facility] PT Bld 11.3 sec 06/28/2024 10.5 - 13.3 [facility] INR PPP 1.0 06/28/2024 0.8 - 1.1 [facility] Monocytes NFr Bld Auto 6.5 % 06/28/2024 2 - 12 [facility] Eosinophil NFr Bld Auto 0.0 % 06/28/2024 0 - 6 [facility] WBC # Bld Auto 14.6 K/mcL Above high normal 06/28/2024 4 - 1 0.5 [facility] MCHC RBC Auto-EntMCnc 32.3 g/dL 06/28/2024 32 - 36 [facility] Neutrophils NFr Bld Auto 86.7 % Above high normal 06/28/2024 44 - 74 [facility] Lymphocytes # Bld Auto 1.0 K/mcL 06/28/2024 1 - 3.2 [facility] Lymphocytes NFr Bld Auto 6.6 % Below low normal 06/28/2024 20 - 48 [facility] Basophils NFr Bld Auto 0.2 % 06/28/2024 0 - 2 [facility] Hct VFr Bld Auto 31.3 % Below low normal 06/28/2024 37 - 47 [facility] Hgb Bld-mCnc 10.1 g/dL Below low normal 06/28/2024 12.5 - 16 [facility] Neutrophils # Bld Auto 12.6 K/mcL Above high normal 06/28/2024 1.8 - 7.8 [facility] RBC Auto 84.7 FL 06/28/2024 78 - 100 [facility] PMV Bld Auto 7.4 FL 06/28/2024 7.4 - 11.4 [facility] RDW RBC Auto 15.3 % 06/28/2024 12.1 - 16.2 [facility] MCH RBC Qn Auto 27.4 pcg 06/28/2024 25 - 33 [facility] Monocytes # Bld Auto 0.9 K/mcL Above high normal 06/28/2024 0 - 0.8 [facility] Basophils # Bld Auto 0.0 K/mcL 06/28/2024 0 - 0.2 [facility] Platelet # Bld Auto 392.0 K/mcL 06/28/2024 150 - 450 [facility] RBC # Bld Auto 3.69 M/mcL Below low normal 06/28/2024 4.2 - 5.4 [facility] Eosinophil # Bld Auto 0.0 K/mcL 06/28/2024 0 - 0.5 [facility] Glucose Bld-mCnc 114.0 mg/dL 06/27/2024 70 - 199 [facility] Rh Bld Positive 07/08/2024 [facility] ABO Group Bld O 07/08/2024 [facility] ABO Group Bld O 07/08/2024 [facility] Rh Bld Positive 07/08/2024 [facility] Bld gp Ab Scn SerPl Ql Negative 07/08/2024 [facility] Magnesium SerPl-mCnc 2.0 mg/dL 06/27/2024 1.7 - 2.8 [facility] Calcium SerPl-mCnc 9.8 mg/dL 06/27/2024 8.4 - 10.2 [facility] CO2 SerPl-sCnc 31.0 mmol/L 06/27/2024 24 - 32 [facility] Potassium SerPl-sCnc 4.0 mmol/L 06/27/2024 3.5 - 5.1 [facility] Chloride SerPl-sCnc 99.0 mmol/L 06/27/2024 98 - 107 [facility] BUN SerPl-mCnc 13.0 mg/dL 06/27/2024 7 - 17 [facility] Creat SerPl-mCnc 1.0 mg/dL 06/27/2024 0.5 - 1 CT [facility] BUN/Creat SerPl 13.0 06/27/2024 12 - 20 [facility] Anion Gap SerPl Calc-sCnc 8.0 06/27/2024 5 - 14 [facility] Glucose SerPl-mCnc 93.0 mg/dL 06/27/2024 70 - 199 [facility] eGFRcr SerPlBld CKD-EPI 2020 59.0 mL/min/1.73m2 Below low normal 06/27/2024 - [facility] Sodium SerPl-sCnc 138.0 mmol/L 06/27/2024 135 - 14 5 [facility] RBC Auto 85.5 FL 06/27/2024 78 - 100 [facility] Monocytes # Bld Auto 0.8 K/mcL 06/27/2024 0 - 0.8 [facility] MCHC RBC Auto-EntMCnc 32.0 g/dL 06/27/2024 32 - 36 [facility] Neutrophils NFr Bld Auto 65.3 % 06/27/2024 44 - 74 [facility] Basophils NFr Bld Auto 0.2 % 06/27/2024 0 - 2 [facility] Neutrophils # Bld Auto 4.6 K/mcL 06/27/2024 1.8 - 7.8 [facility] Monocytes NFr Bld Auto 11.8 % 06/27/2024 2 - 12 [facility] RBC # Bld Auto 3.85 M/mcL Below low normal 06/27/2024 4.2 - 5.4 [facility] Hct VFr Bld Auto 32.9 % Below low normal 06/27/2024 37 - 47 [facility] WBC # Bld Auto 7.1 K/mcL 06/27/2024 4 - 10.5 [facility] Hgb Bld-mCnc 10.5 g/dL Below low normal 06/27/2024 12.5 - 16 [facility] Lymphocytes # Bld Auto 1.3 K/mcL 06/27/2024 1 - 3.2 [facility] Eosinophil NFr Bld Auto 4.9 % 06/27/2024 0 - 6 [facility] PMV Bld Auto 7.5 FL 06/27/2024 7.4 - 11.4 [facility] Platelet # Bld Auto 414.0 K/mcL 06/27/2024 150 - 450 [facility] RDW RBC Auto 15.7 % 06/27/2024 12.1 - 16.2 [facility] Lymphocytes NFr Bld Auto 17.8 % Below low normal 06/27/2024 20 - 48 [facility] MCH RBC Qn Auto 27.4 pcg 06/27/2024 25 - 33 [facility] Eosinophil # Bld Auto 0.3 K/mcL 06/27/2024 0 - 0.5 [facility] Basophils # Bld Auto 0.0 K/mcL 06/27/2024 0 - 0.2 [facility] INR PPP 1.1 06/27/2024 0.8 - 1.1 [facility] PT Bld 12.8 sec 06/27/2024 10.5 - 13.3 [facility] Glucose Bld-mCnc 107.0 mg/dL 06/27/2024 70 - 199 [facility] ABO Group Bld O 07/08/2024 [facility] Bld gp Ab Scn SerPl Ql Negative 07/08/2024 [facility] Rh Bld Positive 07/08/2024 [facility] INR PPP 1.2 Above high normal 06/26/2024 0.8 - 1.1 C [facility] PT Bld 13.2 sec 06/26/2024 10.5 - 13.3 [facility] eGFRcr SerPlBld CKD-EPI 2020 76.0 mL/min/1.73m2 06/26/2024 - [facility] BUN SerPl-mCnc 11.0 mg/dL 06/26/2024 7 - 17 [facility] Calcium SerPl-mCnc 9.4 mg/dL 06/26/2024 8.4 - 10.2 [facility] Potassium SerPl-sCnc 3.9 mmol/L 06/26/2024 3.5 - 5.1 [facility] Sodium SerPl-sCnc 137.0 mmol/L 06/26/2024 135 - 14 5 [facility] Chloride SerPl-sCnc 99.0 mmol/L 06/26/2024 98 - 107 [facility] CO2 SerPl-sCnc 31.0 mmol/L 06/26/2024 24 - 32 [facility] Creat SerPl-mCnc 0.8 mg/dL 06/26/2024 0.5 - 1 CT [facility] Anion Gap SerPl Calc-sCnc 7.0 06/26/2024 5 - 14 [facility] BUN/Creat SerPl 13.8 06/26/2024 12 - 20 [facility] Glucose SerPl-mCnc 92.0 mg/dL 06/26/2024 70 - 199 [facility] Monocytes NFr Bld Auto 12.5 % Above high normal 06/26/2024 2 - 12 [facility] Neutrophils NFr Bld Auto 61.9 % 06/26/2024 44 - 74 [facility] Platelet # Bld Auto 407.0 K/mcL 06/26/2024 150 - 450 [facility] RDW RBC Auto 15.4 % 06/26/2024 12.1 - 16.2 [facility] Hct VFr Bld Auto 31.5 % Below low normal 06/26/2024 37 - 47 [facility] Basophils # Bld Auto 0.1 K/mcL 06/26/2024 0 - 0.2 [facility] WBC # Bld Auto 6.2 K/mcL 06/26/2024 4 - 10.5 [facility] Lymphocytes # Bld Auto 1.2 K/mcL 06/26/2024 1 - 3.2 [facility] Hgb Bld-mCnc 10.3 g/dL Below low normal 06/26/2024 12.5 - 16 [facility] Eosinophil # Bld Auto 0.3 K/mcL 06/26/2024 0 - 0.5 [facility] Eosinophil NFr Bld Auto 4.8 % 06/26/2024 0 - 6 [facility] Monocytes # Bld Auto 0.8 K/mcL 06/26/2024 0 - 0.8 [facility] RBC Auto 83.9 FL 06/26/2024 78 - 100 [facility] Neutrophils # Bld Auto 3.8 K/mcL 06/26/2024 1.8 - 7.8 [facility] MCHC RBC Auto-EntMCnc 32.7 g/dL 06/26/2024 32 - 36 [facility] Basophils NFr Bld Auto 1.1 % 06/26/2024 0 - 2 [facility] RBC # Bld Auto 3.75 M/mcL Below low normal 06/26/2024 4.2 - 5.4 [facility] Lymphocytes NFr Bld Auto 19.7 % Below low normal 06/26/2024 20 - 48 [facility] MCH RBC Qn Auto 27.4 pcg 06/26/2024 25 - 33 [facility] PMV Bld Auto 7.0 FL Below low normal 06/26/2024 7.4 - 11. 4 [facility] eGFRcr SerPlBld CKD-EPI 2020 90.0 mL/min/1.73m2 06/24/2024 - [facility] BUN/Creat SerPl 15.7 06/24/2024 12 - 20 [facility] Creat SerPl-mCnc 0.7 mg/dL 06/24/2024 0.5 - 1 CT [facility] Chloride SerPl-sCnc 98.0 mmol/L 06/24/2024 98 - 107 [facility] Sodium SerPl-sCnc 136.0 mmol/L 06/24/2024 135 - 14 5 [facility] Potassium SerPl-sCnc 3.9 mmol/L 06/24/2024 3.5 - 5.1 [facility] CO2 SerPl-sCnc 30.0 mmol/L 06/24/2024 24 - 32 CT [facility] Anion Gap SerPl Calc-sCnc 8.0 06/24/2024 5 - 14 [facility] Calcium SerPl-mCnc 9.2 mg/dL 06/24/2024 8.4 - 10.2 [facility] Glucose SerPl-mCnc 93.0 mg/dL 06/24/2024 70 - 199 [facility] BUN SerPl-mCnc 11.0 mg/dL 06/24/2024 7 - 17 [facility] Magnesium SerPl-mCnc 1.8 mg/dL 06/24/2024 1.7 - 2.8 [facility] Eosinophil # Bld Auto 0.4 K/mcL 06/24/2024 0 - 0.5 [facility] Basophils # Bld Auto 0.1 K/mcL 06/24/2024 0 - 0.2 [facility] WBC # Bld Auto 7.0 K/mcL 06/24/2024 4 - 10.5 [facility] Platelet # Bld Auto 444.0 K/mcL 06/24/2024 150 - 450 [facility] MCHC RBC Auto-EntMCnc 32.4 g/dL 06/24/2024 32 - 36 [facility] Neutrophils # Bld Auto 4.3 K/mcL 06/24/2024 1.8 - 7.8 [facility] RBC # Bld Auto 3.67 M/mcL Below low normal 06/24/2024 4.2 - 5.4 [facility] Lymphocytes NFr Bld Auto 20.1 % 06/24/2024 20 - 48 [facility] Neutrophils NFr Bld Auto 60.8 % 06/24/2024 44 - 74 [facility] Hct VFr Bld Auto 30.9 % Below low normal 06/24/2024 37 - 47 [facility] Lymphocytes # Bld Auto 1.4 K/mcL 06/24/2024 1 - 3.2 [facility] Hgb Bld-mCnc 10.0 g/dL Below low normal 06/24/2024 12.5 - 16 [facility] RBC Auto 84.2 FL 06/24/2024 78 - 100 [facility] Monocytes NFr Bld Auto 12.5 % Above high normal 06/24/2024 2 - 12 [facility] PMV Bld Auto 7.1 FL Below low normal 06/24/2024 7.4 - 11. 4 [facility] RDW RBC Auto 15.5 % 06/24/2024 12.1 - 16.2 [facility] Eosinophil NFr Bld Auto 5.8 % 06/24/2024 0 - 6 [facility] Monocytes # Bld Auto 0.9 K/mcL Above high normal 06/24/2024 0 - 0.8 [facility] Basophils NFr Bld Auto 0.8 % 06/24/2024 0 - 2 [facility] MCH RBC Qn Auto 27.3 pcg 06/24/2024 25 - 33 [facility] Sodium SerPl-sCnc 134.0 mmol/L Below low normal 06/23/2024 1 35 - 145 [facility] BUN/Creat SerPl 12.2 06/23/2024 12 - 20 [facility] Potassium SerPl-sCnc 3.7 mmol/L 06/23/2024 3.5 - 5.1 [facility] BUN SerPl-mCnc 11.0 mg/dL 06/23/2024 7 - 17 [facility] Glucose SerPl-mCnc 93.0 mg/dL 06/23/2024 70 - 199 [facility] Calcium SerPl-mCnc 9.3 mg/dL 06/23/2024 8.4 - 10.2 [facility] Anion Gap SerPl Calc-sCnc 6.0 06/23/2024 5 - 14 [facility] CO2 SerPl-sCnc 31.0 mmol/L 06/23/2024 24 - 32 [facility] Chloride SerPl-sCnc 97.0 mmol/L Below low normal 06/23/2024 98 - 107 [facility] eGFRcr SerPlBld CKD-EPI 2020 66.0 mL/min/1.73m2 06/23/2024 - [facility] Creat SerPl-mCnc 0.9 mg/dL 06/23/2024 0.5 - 1 CT [facility] BUN/Creat SerPl 11.4 Below low normal 06/21/2024 12 - 2 0 [facility] BUN SerPl-mCnc 8.0 mg/dL 06/21/2024 7 - 17 [facility] CO2 SerPl-sCnc 31.0 mmol/L 06/21/2024 24 - 32 [facility] Anion Gap SerPl Calc-sCnc 9.0 06/21/2024 5 - 14 [facility] Chloride SerPl-sCnc 96.0 mmol/L Below low normal 06/21/2024 98 - 107 [facility] Potassium SerPl-sCnc 3.8 mmol/L 06/21/2024 3.5 - 5.1 [facility] Sodium SerPl-sCnc 136.0 mmol/L 06/21/2024 135 - 14 5 [facility] Glucose SerPl-mCnc 87.0 mg/dL 06/21/2024 70 - 99 [facility] Creat SerPl-mCnc 0.7 mg/dL 06/21/2024 0.5 - 1 CT [facility] eGFRcr SerPlBld CKD-EPI 2020 90.0 mL/min/1.73m2 06/21/2024 - [facility] Calcium SerPl-mCnc 8.7 mg/dL 06/21/2024 8.4 - 10.2 [facility] Magnesium SerPl-mCnc 2.0 mg/dL 06/21/2024 1.7 - 2.8 [facility] PMV Bld Auto 7.1 FL Below low normal 06/21/2024 7.4 - 11. 4 [facility] Platelet # Bld Auto 422.0 K/mcL 06/21/2024 150 - 450 [facility] RDW RBC Auto 16.0 % 06/21/2024 12.1 - 16.2 [facility] WBC # Bld Auto 8.1 K/mcL 06/21/2024 4 - 10.5 [facility] Hgb Bld-mCnc 9.9 g/dL Below low normal 06/21/2024 12.5 - 16 [facility] RBC Auto 84.8 FL 06/21/2024 78 - 100 [facility] MCH RBC Qn Auto 27.3 pcg 06/21/2024 25 - 33 [facility] RBC # Bld Auto 3.64 M/mcL Below low normal 06/21/2024 4.2 - 5.4 [facility] Hct VFr Bld Auto 30.8 % Below low normal 06/21/2024 37 - 47 [facility] MCHC RBC Auto-EntMCnc 32.2 g/dL 06/21/2024 32 - 36 [facility] Vancomycin Trough SerPl-mCnc 17.7 mcg/mL 06/20/2024 10 - 20 [facility] Magnesium SerPl-mCnc 1.9 mg/dL 06/20/2024 1.7 - 2.8 [facility] Calcium SerPl-mCnc 9.0 mg/dL 06/20/2024 8.4 - 10.2 [facility] BUN SerPl-mCnc 8.0 mg/dL 06/20/2024 7 - 17 [facility] BUN/Creat SerPl 10.0 Below low normal 06/20/2024 12 - 2 0 [facility] Creat SerPl-mCnc 0.8 mg/dL 06/20/2024 0.5 - 1 CT [facility] CO2 SerPl-sCnc 31.0 mmol/L 06/20/2024 24 - 32 [facility] Glucose SerPl-mCnc 99.0 mg/dL 06/20/2024 70 - 199 [facility] Potassium SerPl-sCnc 3.8 mmol/L 06/20/2024 3.5 - 5.1 [facility] Chloride SerPl-sCnc 100.0 mmol/L 06/20/2024 98 - 107 [facility] Sodium SerPl-sCnc 138.0 mmol/L 06/20/2024 135 - 14 5 [facility] Anion Gap SerPl Calc-sCnc 7.0 06/20/2024 5 - 14 [facility] eGFRcr SerPlBld CKD-EPI 2020 76.0 mL/min/1.73m2 06/20/2024 - [facility] Platelet # Bld Auto 413.0 K/mcL 06/20/2024 150 - 450 [facility] MCHC RBC Auto-EntMCnc 32.8 g/dL 06/20/2024 32 - 36 [facility] RDW RBC Auto 15.8 % 06/20/2024 12.1 - 16.2 [facility] Hct VFr Bld Auto 30.6 % Below low normal 06/20/2024 37 - 47 [facility] MCH RBC Qn Auto 27.7 pcg 06/20/2024 25 - 33 [facility] RBC Auto 84.4 FL 06/20/2024 78 - 100 [facility] WBC # Bld Auto 7.9 K/mcL 06/20/2024 4 - 10.5 [facility] Hgb Bld-mCnc 10.0 g/dL Below low normal 06/20/2024 12.5 - 16 [facility] PMV Bld Auto 6.8 FL Below low normal 06/20/2024 7.4 - 11. 4 [facility] RBC # Bld Auto 3.63 M/mcL Below low normal 06/20/2024 4.2 - 5.4 [facility] Chloride SerPl-sCnc 97.0 mmol/L Below low normal 06/19/2024 98 - 107 [facility] Anion Gap SerPl Calc-sCnc 8.0 06/19/2024 5 - 14 [facility] BUN/Creat SerPl 10.0 Below low normal 06/19/2024 12 - 2 0 [facility] CO2 SerPl-sCnc 34.0 mmol/L Above high normal 06/19/2024 24 - 32 [facility] Sodium SerPl-sCnc 139.0 mmol/L 06/19/2024 135 - 14 5 [facility] Creat SerPl-mCnc 0.7 mg/dL 06/19/2024 0.5 - 1 CT [facility] Glucose SerPl-mCnc 90.0 mg/dL 06/19/2024 70 - 199 [facility] Calcium SerPl-mCnc 8.9 mg/dL 06/19/2024 8.4 - 10.2 [facility] BUN SerPl-mCnc 7.0 mg/dL 06/19/2024 7 - 17 [facility] Potassium SerPl-sCnc 3.4 mmol/L Below low normal 06/19/2024 3.5 - 5.1 [facility] eGFRcr SerPlBld CKD-EPI 2020 90.0 mL/min/1.73m2 06/19/2024 - [facility] Magnesium SerPl-mCnc 1.8 mg/dL 06/19/2024 1.7 - 2.8 [facility] Monocytes NFr Bld Auto 14.7 % Above high normal 06/19/2024 2 - 12 [facility] Platelet # Bld Auto 402.0 K/mcL 06/19/2024 150 - 450 [facility] WBC # Bld Auto 5.8 K/mcL 06/19/2024 4 - 10.5 [facility] Basophils # Bld Auto 0.0 K/mcL 06/19/2024 0 - 0.2 [facility] RDW RBC Auto 16.0 % 06/19/2024 12.1 - 16.2 [facility] Hgb Bld-mCnc 10.0 g/dL Below low normal 06/19/2024 12.5 - 16 [facility] PMV Bld Auto 7.0 FL Below low normal 06/19/2024 7.4 - 11. 4 [facility] MCHC RBC Auto-EntMCnc 32.9 g/dL 06/19/2024 32 - 36 [facility] Neutrophils # Bld Auto 3.7 K/mcL 06/19/2024 1.8 - 7.8 [facility] Basophils NFr Bld Auto 0.7 % 06/19/2024 0 - 2 [facility] Neutrophils NFr Bld Auto 63.1 % 06/19/2024 44 - 74 [facility] RBC # Bld Auto 3.58 M/mcL Below low normal 06/19/2024 4.2 - 5.4 [facility] RBC Auto 84.6 FL 06/19/2024 78 - 100 [facility] N Hct VFr Bld Auto 30.3 % Below low normal 06/19/2024 37 - 47 [facility] Eosinophil NFr Bld Auto 4.7 % 06/19/2024 0 - 6 [facility] Lymphocytes NFr Bld Auto 16.8 % Below low normal 06/19/2024 20 - 48 [facility] Lymphocytes # Bld Auto 1.0 K/mcL 06/19/2024 1 - 3.2 [facility] Monocytes # Bld Auto 0.9 K/mcL Above high normal 06/19/2024 0 - 0.8 [facility] MCH RBC Qn Auto 27.8 pcg 06/19/2024 25 - 33 [facility] Eosinophil # Bld Auto 0.3 K/mcL 06/19/2024 0 - 0.5 [facility] History of Medication Use Medication Directions Dispensed Refills Start Date End Date Status iopamidoL (ISOVUE-370) 370 mg iodine /mL (76 %) injection 65 mL 65 mL, intravenous, Once in imaging, Starting on Sun09/09/24 at 1356, For 1 dose 5 09/10/19 completed sodium chloride 0.9 % intravenous solution 50 mL 50 mL, intravenous, Once in imaging, Starting on Sun09/09/24 at 1356, For 1 dose 5 09/10/19 completed methocarbamoL (ROBAXIN) 500 mg tablet Take 1 tablet (500 mg total) by mouth every 8 (eight) hours if needed for muscle spasms. active doxycycline hyclate (VIBRA-TABS) 100 mg tablet Take 1 tablet (100 mg total) by mouth 2 (two) times a day. Take with a full glass of water and do not lie down for at least 30 minutes after. active vancomycin (VANCOCIN) 500 mg injection Infuse 500 mg into a venous catheter every 12 (twelve) hours. active bisacodyL (DULCOLAX) suppository 10 mg 10 mg, rectal, Once, On Sun07/01/24 at 0745, For 1 dose 5 07/02/19 completed lidocaine (XYLOCAINE) 1 % injection 5 mL 5 mL, intradermal, Once, On Sun07/01/24 at 1445, For 1 dose 5 07/02/19 completed senna (SENOKOT) tablet 17.2 mg 17.2 mg (2 tablet), oral, Nightly, First dose on Sun06/29/24 at 2100, Bowel Regimen - for prevention of constipation 5 active magnesium hydroxide (MILK OF MAGNESIA) 400 mg/5 mL suspension 30 mL 30 mL, oral, Daily PRN, constipation, Starting on Sun06/29/24 at 1103, 1st line for treatment of constipation - give scheduled if no bowel movement in past 24 hours 5 active polyethylene glycol (MIRALAX) 17 gram packet Take 17 g by mouth 1 (one) time each day for 3 days. 5 active fentaNYL (PF) (SUBLIMAZE) injection 25 mcg 25 mcg, intravenous, Once, On Sun06/27/24 at 1815, For 1 dose 06/29/19 completed magnesium oxide (MAG-OX) tablet 200 mg 200 mg, oral, Daily, First dose on Sun06/25/24 at 0900, For 5 doses 5 06/30/19 completed enoxaparin (LOVENOX) injection 40 mg 40 mg, subcutaneous, Every 24 hours scheduled, First dose on Sun06/29/24 at 1145, Indication: VTE/PE Prophylaxis 5 06/27/19 active DULoxetine (CYMBALTA) DR capsule 30 mg 30 mg, oral, Nightly, First dose on Sun06/19/24 at 2100, Do not crush or chew., Indications: anxiety with depression active metoprolol tartrate (LOPRESSOR) tablet 25 mg 25 mg, oral, 2 times daily, First dose on Sun06/20/24 at 0900 active vancomycin (VANCOCIN) 750 mg in sodium chloride 0.9 % 250 mL IVPB 750 mg, intravenous, at 250 mL/hr, Administer over 60 Minutes, Every 18 hours, First dose on Sun06/29/24 at 1300, For 30 days, Indication: Bacteremia 07/03/19 active potassium chloride (KLOR-CON M20) CR tablet 20 mEq 20 mEq, oral, Once, On Sun06/23/24 at 0615, For 1 dose, Tablet may be swallowed whole (do not crush/chew/suck on) OR broken in half and each half swallowed separately OR dissolved (whole tablet) in ~4 ounces of water (allow ~2 minutes to dissolve, stir well and administer immediately). 06/24/19 completed magnesium sulfate 2 gram/50 mL (4 %) IVPB 2 g 2 g, intravenous, at 25 mL/hr, Administer over 2 Hours, Once, On Sun06/20/24 at 0645, For 1 dose 06/21/19 completed metoprolol succinate (TOPROL-XL) 25 mg 24 hr tablet Take 1 tablet (25 mg total) by mouth 1 (one) time each day. Do not crush or chew. 5 06/21/19 active potassium chloride (KLOR-CON M20) CR tablet 40 mEq 40 mEq, oral, Once, On Sun06/19/24 at 0645, For 1 dose, Best given with food and plenty of water to minimize gastric irritation. Tablet may be swallowed whole (do not crush/chew/suck on) OR broken in half and each half swallowed separately OR dissolved (whole tablet) in ~4 ounces of water (allow ~2 5 06/20/19 completed acetaminophen (TYLENOL) 325 mg tablet Take 2 tablets (650 mg total) by mouth every 6 (six) hours if needed for mild pain, moderate pain, headaches or fever - temperature GREATER than 38 C (100.4 F) for up to 10 days. 5 active cholecalciferol (VITAMIN D-3) tablet 2,000 Units 2,000 Units, oral, Daily, First dose on Sun06/19/24 at 0900, 1000 units = 25 mcg of cholecalciferol (VITAMIN D3) 5 active ondansetron (PF) (ZOFRAN) injection 4 mg 4 mg, intravenous, Every 6 hours PRN, nausea, vomiting, Starting on Sun06/18/24 at 2116 5 active pantoprazole (PROTONIX) EC tablet 40 mg 40 mg, oral, Every morning before breakfast, First dose on Sun06/19/24 at 0715, Do not crush, chew, or split. 5 active sodium chloride 0.9 % flush 10 mL [Order 1 Start] Name: Insert peripheral IV Signed Summary: STAT, Once, On Sun06/18/24 at 2111, For 1 occurrence [Order 1 End] [Order 2 Start] Name: Maintain IV access Signed Summary: Until discontinued, Starting on Sun06/18/24 at 2111, Until Specified [Order 2 End] [Order 3 Start] Name: Saline lock 5 active gabapentin (NEURONTIN) capsule 300 mg 300 mg, oral, Nightly, First dose on Sun06/18/24 at 2145 5 active oxyCODONE (ROXICODONE) immediate release tablet 5 mg 5 mg, oral, Every 4 hours PRN, severe pain, moderate pain or when therapies for mild pain were not effective, Starting on Sun06/18/24 at 2116 5 07/03/19 25 active Vitamin D3 50 mcg (2,000 unit) tablet Take 1 tablet (2,000 Units total) by mouth 1 (one) time each day. for 90 days 4 active Allergies Allergen Reaction Severity Comment Documented Date Source Statu s CIPROFLOXACIN DIARRHEA 02/19/2024 [facility] act [facility] Problems Problem Status Onset Date Problem Type Date of Resoluti on Source Discitis thoracic region active 2024-06-13 ProblemAct [facility] Malnutrition of moderate degree (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 2024-02-19 ProblemAct [facility] Immunizations Vaccine Date Source Lot Number Status Influenza trivalent, with pr eservative (Fluzone; Afluria) 6mo and older 11/20/2023 [facility] [id number] completed Pneumococcal conjugate 20 va lent (Prevnar 20, PCV 20) 2mo and older 06/18/2023 [facility] [id number] comple staci Influenza Quadravalent, 0.5m l (Fluad) 65yo and older 12/06/2021 [facility] [id number] completed Influenza Quadrivalent, with preservative (Fluzone; Afluria) 6mo and older 12/09/2020 [facility] [id number] completed Tdap Tetanus diptheria acell ular pertussis (Boostrix; Adacel) 7yo and older 05/08/2016 [id number] completed Encounters Encounter Type Encounter Reason Primary Diagnosis Location Date Ambulatory Other specified postprocedural states Other specified postprocedural states [facility] [place] Discitis, unspecifie d, thoracic region Discitis, unspecified, thoracic region [facility] [place] Other pulmonary embolism without acute cor pulmonale [place] [place]24, [facility] [place] V28[place] Other pulmonary embolism without acute cor pulmonale ([facility] [place] V24, [facility] [place]28[place] [facility] [place] Discitis, unspecifie d, thoracic region Discitis, unspecified, thoracic region [facility] [place] Discitis, unspecifie d, thoracic region Discitis, unspecified, thoracic region [facility] [place] [facility] 2024 Inpatient Mitral Valve Vegetation Osteomyelitis of vertebra, site unspecified ([facility] [place] V24, [facility] [place] V28[place] [facility] 06/18/2024 Care Team Organization Name Specialty Phone Email Start Date End [facility] 06/19/2024 [facility] 06/18/2024
== END 2024-12-02 13:33 | disposition home or self-care (01) ==
LOC: HO.HOS 13:00
PROVIDERS: PCP Internal Medicine; Visit Provider Orthopaedic Surgery
DX: M17.0 Bilateral primary osteoarthritis of knee (principal)
CPT/HCPCS: 99203; G2211

== ENCOUNTER → 2024-12-02 13:01 | Outpatient (BNV) | payer MEDICARE, SELFPAY | PROVIDERS: Visit Provider Radiology Diagnostic Radiology | DX: M17.0 Bilateral primary osteoarthritis of knee (principal) | CPT/HCPCS: 73562 ==

== ENCOUNTER 2025-01-13 10:11 | Outpatient (AMB) | payer MEDICARE, SELFPAY ==
--- NOTE | 2025-01-13 10:21 | MHC.OFFVIS ---
Vital Signs 01/13/25 10:23 Height 5 ft 7 in Weight 162 lb BMI 25.4 Intake Visit Reasons: INJ- Bilateral knee Durolane injection Intake Note: Lorene is a 79 year old female who presents today for her bilateral knees Durolane injections. She describes her bilateral knee pains as sharp in nature. She has failed the last 3 months of conservative treatment. She wishes to hold off on total knee replacement surgery for as long as possible. Allergies No Known Allergies Allergy (Verified 01/13/25 10:23) Medication List - Last Reconciled 01/13/25 by Papa Veliz MD duloxetine 30 mg PO DAILY gabapentin 300 mg PO BID PRN metoprolol succinate ER 50 mg PO DAILY PFS Medical History Bilateral knee pain Social History Alcohol intake: current Alcohol intake frequency: a few times a week Patient Tobacco Use Status: Never used Tobacco Current occupational status: retired Physical Exam Vital Signs: BMI result Body Mass Index 25.4 Extrem Other: Bilateral knee examination shows minimal effusions, palpable crepitus with range of motion, pain with range of motion, no instability Office Procedures AMB Joint Injection/Aspiration Joint Injection/Aspiration Primary Site: Right Knee Prep: site was prepped using aseptic technique Injected: 60 mg of, Durolane, with 3 mL of and 1% plain Lidocaine Procedure: The patient tolerated the procedure well Coding 78946 - Large joint Procedure code (CPT) selection complete AMB Joint Injection/Aspiration Joint Injection/Aspiration Primary Site: Left Knee Prep: site was prepped using aseptic technique Injected: 60 mg of, Durolane, with 3 mL of and 1% plain Lidocaine Procedure: The patient tolerated the procedure well Coding 77580 - Large joint Procedure code (CPT) selection complete Results Reviewed Results Reviewed: X-rays of the patient's bilateral knees taken previously show joint space narrowing, subchondral sclerosis, no acute bony abnormalities Assessment & Plan Assessment & Plan (1) Osteoarthritis of left knee: Code(s): M17.12 - Unilateral primary osteoarthritis, left knee Category: Medical (2) Osteoarthritis of right knee: Code(s): M17.11 - Unilateral primary osteoarthritis, right knee Category: Medical Plan Ms. Miller presents with bilateral knee pains due to osteoarthritis. The risks and benefits of bilateral knee Durolane viscosupplementation injections were discussed at length with the patient. The patient wished to proceed. She tolerated the injections well. She will continue with her home exercise program. She will contact me prior to her follow-up appointment in 3 months should any questions or concerns arise. Feel free to call me at any time should questions regarding her orthopedic management arise. I spent 21 minutes in reviewing the patient's records and imaging studies, seeing the patient and documenting in the medical record. Orders: Orders AMB Joint Injection/Aspiration Today M17.11 - Unilateral primary osteoarthritis, right knee AMB Joint Injection/Aspiration Today M17.12 - Unilateral primary osteoarthritis, left knee Coding Level of Care Code Est Pt Level 3 (02342) Complex visit Add On G2211 Diagnoses Osteoarthritis of left knee M17.12 Osteoarthritis of right knee M17.11 CPT Codes Coding - 84265 Large joint: 66776 - Large joint ([id number]) Coding - 44578 Large joint: 67161 - Large joint ([id number])
[2025-01-13 10:23] VITALS: BMI 25.4
== END 2025-01-13 10:44 | disposition home or self-care (01) ==
LOC: HO.HOS 10:12
PROVIDERS: Visit Provider Orthopaedic Surgery
DX: M17.0 Bilateral primary osteoarthritis of knee (principal)
CPT/HCPCS: 20610; 99213

== ENCOUNTER → 2025-01-13 10:11 | Outpatient (BNVA) | payer MEDICARE, SELFPAY | PROVIDERS: Visit Provider Orthopaedic Surgery | DX: M17.0 Bilateral primary osteoarthritis of knee (principal) | CPT/HCPCS: 20610; 99212; J2003; J7318 ==